=== PATIENT | male | born 1990 | race Two or more races ===

== ENCOUNTER 2024-11-27 15:59 | Emergency (ER) | payer MEDICAID, SELFPAY ==
[2024-11-27 16:09] VITALS: PULSE 91; RESP 20; O2SAT 100; BMI 22.8
[2024-11-27 16:10] VITALS: BP 154/110; PULSE 96; RESP 16; TEMP 37.7; O2SAT 95
[2024-11-27] MEDS: LORazepam 2 MG/ML VIAL IVP ×2 (16:39→19:43)
--- NOTE | 2024-11-27 16:51 | XR_ITS ---
Examination: CT brain head without contrast. 2-D sagittal coronal reconstructions Date and time of exam:November 27, 2024 at 1715 hours INDICATIONS: Seizure today with injury to the head, head pain CTDI: vol (mGy):52.1 DLP: (mGycm):1044 Technique: Multiple CT axial sections of the brain have been obtained, 5 mm slice thickness. Contrast has not been administered. 2-D sagittal, coronal reconstructions have been obtained Low dose protocols were performed. One or more of the following dose reduction techniques were used; automated exposure control, adjustment of the mA and/or KV according to patient size, use of iterative reconstruction technique. Findings: No significant ventricular enlargement. Intra-axial or extra-axial hemorrhage density is not seen. No mass effect or midline shift Basal cisterns are not remarkable. Fourth ventricle is midline. Cranial vault intact. Impression: Negative for acute hemorrhage, mass effect or midline shift Consider elective brain MRI follow-up, pre and postcontrast
--- NOTE | 2024-11-27 16:51 | XR_ITS ---
Examination: CT maxillofacial, without intravenous contrast. 2-D sagittal reconstructions. 3-D reconstructions. Date and time of exam:November 27, 2024 1715 hours INDICATIONS: Seizure today with injury to the face, facial swelling and pain CTDI: vol (mGy):17.3 DLP: (mGycm):354 Technique: Multiple axial images of maxillofacial region, 3.0 mm slice thickness. 2-D sagittal and coronal reconstructions. 3-D reconstructions. Low dose protocols were performed. One or more of the following dose reduction techniques were used; automated exposure control, adjustment of the mA and/or KV according to patient size, use of iterative reconstruction technique. Findings: Frontal bone frontal sinuses intact Orbital rims intact The optic globes exhibit symmetry No retro-orbital hematoma No nasal bone fracture No depression zygomatic arches Maxilla and the mandible intact Soft tissue contusion right face external to the right zygomatic arch and right maxilla IMPRESSION: No acute facial fracture.
--- NOTE | 2024-11-27 16:51 | XR_ITS ---
Examination: CT cervical spine without contrast 2-D sagittal reconstructions 2-D coronal reconstructions 3-D reconstructions. Exam date and time:November 27, 2024 1715 hours Comparison November 29, 2023 CTDI:vol (mGy) 12.6 DLP: (mGycm) 276 Technique: Multiple 2 mm axial sections of the cervical spine have been obtained. The coronal and sagittal reconstructions have been obtained. 3-D reconstructions have been obtained. Low dose protocols were performed. One or more of the following dose reduction techniques were used; automated exposure control, adjustment of the mA and/or KV according to patient size, use of iterative reconstruction technique. Findings: Axial sections demonstrate intact base of the skull. C1 exhibit satisfactory relationship to the odontoid. No acute cervical vertebral body fracture seen. Alignment posterior spinous processes satisfactory. Impression: No acute cervical fracture.
[2024-11-27] MEDS: SODIUM CHLORIDE 0.9% 1000 ML 1,000 ML 999 ML IV (16:55)
[2024-11-27] MEDS: THIAMINE INJ 100 MG/ML VIAL 2 ML IVP (16:55)
[2024-11-27 17:07] LABS: Basophils % (Auto) 0 % (0-2.5); Eosinophils % (Auto) 0 % (0-10); Hematocrit 35.3 % (41.0-53.0); Hemoglobin 11.8 g/dL (13.5-16.0); Immature Granulocytes % (Auto) 0 % (0-0); Immature Granulocytes Auto 0.01 Thou/mm3 (0.00-0.00); Lymphocytes # (Auto) 0.3 Thou/mm3 (1.0-4.8); Lymphocytes % (Auto) 13 % (10-50); Mean Corpuscular HGB Conc 33.4 g/dl (31.0-37.0); Mean Corpuscular Hemoglobin 30.3 pg (25.0-35.0); Mean Corpuscular Volume 91 fL (80-100); Monocytes # (Auto) 0.3 Thou/mm3 (0.0-0.8); Monocytes % (Auto) 11 % (0-12); Neutrophils # (Auto) 1.9 Thou/mm3 (1.8-7.7); Neutrophils % (Auto) 75 % (37-80); Nucleated Red Blood Cell % 0 /100 WBC (0); RDW Standard Deviation 44.8 fL (35.1-43.9); Red Blood Count 3.89 Miln/mm3 (4.50-5.90)
--- NOTE | 2024-11-27 17:10 | PD.EDALCOH ---
ED Alcohol RME/HPI General Chief Complaint: Alcohol Stated Complaint: SEIZURES Time Seen by Provider: 11/27/24 16:34 Arrival date/time: 11/27/24 15:59 34 year male present with past medical history of alcohol withdrawal seizure, to emergency room with c/o of seizure withdrawal today at 3pm causing patient to passed out and injury head/face. Pt last alcohol beverage was 1 day ago. No vomiting blood. Dry heaving, no bright red blood per rectum. No bruising today on his extremities. The patient drinks 1 large malt daily.(30z) complaint: seizure Onset (ago): 1500pm Description of Episode: tonic-clonic movement Duration of episode: 1 minute , 5-7 episode Witnessed: yes - by bystander Trauma: yes Seizure History: history of withdrawal seizures Place: home Possible Precipitating Event: other stopped drinking 1 day ago Associated symptoms: nausea LOCATION: face/forehead SEVERITY: Symptoms are described as being severe with limitations on activities of daily living QUALITY: Symptoms are described as being dull or achy CONTEXT:seizure causing head/face injury DURATION/TIMING: The symptoms started approximately 1500 today witness ASSOCIATED SYMPTOMS: The patient is unable to identify any other associated symptoms. MODIFYING FACTORS: The patient is unable to identify any alleviating or aggravating symptoms. PERTINENT ROS: No associated syncope or presyncope, not on anticoagulant use, no associated focal neurological deficits, denies associated neck pain, no recent fevers, no unexplained rashes, no recent foreign travel, immunized, no unexplained nausea or vomiting. REVIEW OF SYSTEMS: See History of Present Illness - with the exception of those mentioned in the history of present illness, all other systems reviewed and reported as negative GENERAL: In general the patient is awake, interactive, in an emergency department gurney. HEAD/EYES/EARS/NOSE/THROAT: right cheek hematoma, no tongue laceration mucus membranes are moist, anicteric, palpebral conjunctiva is pink, trachea is midline. CARDIOVASCULAR: regular rate and regular rhythm, no murmurs, heart sounds are not distant, strong pulses in all four extremities that are equal and symmetric bilateral upper and lower extremities, normal capillary refill. CHEST/PULMONARY: normal chest rise and fall, good air movement, clear to auscultation bilaterally, normal inspiratory to expiratory ratios without evidence of respiratory distress. NECK: No midline/Paraspinal tenderness, no step off ROM/Strenght intact No Kernig and bruzinski sign. No trauma ABDOMEN: soft, not tender, no masses appreciated BACK: normal range of motion without pain. NEUROLOGICAL: cranio-facial features are symmetric, moves all four extremities equally without obvious limitations or weakness. EXTREMITY: no tenderness to palpation over the long bones or large joints of the bilateral upper and lower extremities, no joint swelling, no joint erythema, no signs of trauma, no unilateral leg swelling and no peripheral edema. SKIN: warm, dry, well-perfused, no jaundice, no rash, no telangiectasias or petechia. PSYCH: calm, cooperative, no evidence of psychosis or agitation Related Data Home Medications ?Medication ?Instructions ?Recorded ?Confirmed cetirizine 10 mg tablet 10 mg PO QDAY 01/31/24 01/31/24 propranolol 20 mg tablet 10 mg PO BID 01/31/24 01/31/24 risperidone 2 mg tablet 2 mg PO QPM 01/31/24 01/31/24 trazodone 100 mg tablet 100 mg PO QDAY 01/31/24 01/31/24 Previous Rx's ?Medication ?Instructions ?Recorded cephalexin 500 mg capsule 500 mg PO BID #20 caps 11/27/24 Allergies Allergy/AdvReac Type Severity Reaction Status Date / Time No Known Allergies Allergy Verified 07/02/23 16:20 Course Course Course Narrative: Patient had back to normal per mother? No immunosuppresion hx and had no preceding fever. No history of alcohol abuse or suspicion for toxin ingestion. Unlikely stroke, syncope. Unlikely infectious etiology. No preceding trauma. Workup: EKG, CBC, Trop, lipase,? CMP, POCT glucose alcohol, drug and CT Brain/neck/face. ED Interventions: ativan 2gram, IV fluids, Thiamine,? pt is comfortable going home, since has a rx of librium from his PCP. pt is looking into rehab center. pt decline admission Disposition: Discharge home with primary care follow up in next 24-48 hours. Quality Measures none Orders Category Date Time Status EKG (ED ONLY) *Do not use* NOW Care 11/27/24 17:40 Completed Seizure precautions ONCE Care 11/27/24 17:[address] cervical spine wo con Stat Exams 11/27/24 16:[address] facial bones wo con Stat Exams 11/27/24 16:[address] head/brain wo con Stat Exams 11/27/24 16:51 Completed EKG (ED Only) Stat Exams 11/27/24 17:40 Draft Alcohol, Blood Medical Stat Lab 11/27/24 16:49 Completed Alcohol, Urine Stat Lab 11/27/24 17:31 Completed CBC Stat Lab 11/27/24 16:49 Completed CMP [Comprehensive Metabolic Panel] Stat Lab 11/27/24 16:49 Completed Drug Screen,Urine Stat Lab 11/27/24 17:31 Completed Lipase Stat Lab 11/27/24 16:49 Completed Mag [Magnesium] Stat Lab 11/27/24 16:49 Completed Troponin I Stat Lab 11/27/24 16:49 Completed Folic Acid Inj Med 11/27/24 16:34 Discontinued 1 mg IVP X1 ONE LORazepam [Ativan Inj] Med 11/27/24 16:34 Discontinued 2 mg IVP X1 ONE LORazepam [Ativan Inj] Med 11/27/24 19:24 Discontinued 2 mg IVP X1 ONE Magnesium Oxide [Mag-Ox 400] Med 11/27/24 17:53 Discontinued 400 mg PO X1 ONE Sodium Chloride 0.9% 1000 ml [Ns] 1,000 ml Med 11/27/24 16:35 Discontinued IV 999 mls/hr Thiamine Inj [Vitamin B-1 Inj] Med 11/27/24 16:34 Discontinued 100 mg IVP X1 ONE cephALEXin [Keflex] Med 11/27/24 19:35 Discontinued 500 mg PO X1 ONE Vital Signs Vital signs: Vital Signs Temperature 99.8 F 11/27/24 16:10 Pulse Rate 96 11/27/24 16:10 Respiratory Rate 16 11/27/24 16:10 Blood Pressure 154/110 H 11/27/24 16:10 Pulse Oximetry (%) 95 11/27/24 16:10 Oxygen Delivery Method Room Air 11/27/24 16:10 Procedures -ED EKG Interpretation #1: Date of EK11/27/24 Rate: 81 Interpretation: Reviewed by me EKG Impression: Normal sinus rhythm, No acute ST-T changes, No ectopy, No ischemic changes and Normal QRS Discharge Plan Plan Patient Disposition: HOME (Self Care) Health Concerns: Follow up with PCP as directed Return to ED if symptoms worsen Prescriptions/Referrals Prescriptions/Med Rec: New cephalexin 500 mg capsule 500 mg PO BID Qty: 20 0RF No Action cetirizine 10 mg Tablet 10 mg PO QDAY risperidone 2 mg tablet 2 mg PO QPM Patient Comments: TAKE 1 TABLET BY MOUTH EVERYDAY AT BEDTIME trazodone 100 mg Tablet 100 mg PO QDAY propranolol 20 mg tablet 10 mg PO BID Patient Comments: TAKE 1 TABLET BY MOUTH EVERYDAY AT BEDTIME Problem List Clinical Impression: Alcohol withdrawal seizure, Hypomagnesemia, Facial trauma Patient/Caregiver Discharge Instructions Education Materials: ED Alcohol Withdrawal Seizure, ED Facial Contusion Print Language: Belgian Stand Alone Forms: [facility] Award Info., Patient Portal Info Letter Alcohol Patient data External records reviewed:: [facility] previous records Clinical information provided by:: patient Social determinants that could affect healthcare access:: alcohol use Patient has the following chronic illnesses:: alcohol withdrawal How is presenting disease/condition affected by chronic disease/condition?: exacerbated by Evaluation data The following diagnostics were reviewed and interpreted by me:: lab results, radiology exam(s) and EKG tracing(s) Lab and/or radiology exams considered but not ordered:: none Interpretation Summary: alcohol cbc: 2.6 2.1 previously cmp similar or improvement mg wnl trop wnl drug negative alcohol negative Medications / Prescriptions Medications or Prescriptions considered but not ordered:: none Medication administrations:: Medication Administration History Discontinued Medications Cephalexin HCl (Cephalexin 250 Mg Capsule) 500 mg PO X1 ONE Stop: 11/27/24 19:36 Last Admin: 11/27/24 19:43 Dose: 500 mg Documented By: WILLY Folic Acid (Folic Acid Inj 1 Mg/0.2 Ml) 1 mg IVP X1 ONE Stop: 11/27/24 16:35 Last Admin: 11/27/24 17:26 Dose: 1 mg Documented By: TRENTON Sodium Chloride (Ns) 1,000 mls @ 999 mls/hr IV .Q1H1M ONE Stop: 11/27/24 17:35 Last Infusion: 11/27/24 18:09 Dose: Infused Documented By: Admin: 11/27/24 16:55 Dose: 999 mls/hr Documented By: TRENTON Lorazepam (Lorazepam 2 Mg/Ml Vial) 2 mg IVP X1 ONE Stop: 11/27/24 16:35 Last Admin: 11/27/24 16:39 Dose: 2 mg Documented By: TRENTON Lorazepam (Lorazepam 2 Mg/Ml Vial) 2 mg IVP X1 ONE Stop: 11/27/24 19:25 Last Admin: 11/27/24 19:43 Dose: 2 mg Documented By: WILLY Magnesium Oxide (Magnesium Oxide 400 Mg Tablet) 400 mg PO X1 ONE Stop: 11/27/24 17:54 Last Admin: 11/27/24 18:09 Dose: 400 mg Documented By: DB Thiamine HCl (Thiamine Inj 100 Mg/Ml Vial 2 Ml) 100 mg IVP X1 ONE Stop: 11/27/24 16:35 Last Admin: 11/27/24 16:55 Dose: 100 mg Documented By: DB as state above Consultations Consultation(s) initiated? (list below): No Diagnosis Most likely diagnosis given after review of the tests above:: alcohol withdrawal seizure, facial contusion/head injury Admission Indicated Admission indicated?: not indicated Admission Request Was there a request for admission?: No Disposition Plan Disposition Plan: Discharge Discharge Attestation Discharge Attestation: The patient and all family members were given an opportunity to ask questions and understood the discharge instructions. Discharge instructions specifically effects, indications for sooner follow up or return to the emergency department, and the expected course of current diagnosis. Patient condition: Stable
[2024-11-27 17:21] LABS: Platelet Count 36 Thou/mm3 (140-440); White Blood Count 2.6 Thou/mm3 (3.8-10.6)
[2024-11-27] MEDS: FOLIC ACID INJ 1 MG/0.2 ML IVP (17:26)
--- NOTE | 2024-11-27 17:40 | EKG_ITS ---
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
[2024-11-27 17:45] LABS: Slide Review Platelets confirmed
[2024-11-27 17:46] LABS: Alanine Aminotransferase 43 U/L (10-49); Albumin, Serum 4.1 gm/dL (3.5-5.0); Albumin/Globulin Ratio 1.1 (1.2-2.2); Alcohol, Blood Medical < 3.0 mg/dL (0-10.0); Alkaline Phosphatase 91 U/L (46-116); Anion Gap 10 (7-16); Aspartate Amino Transferase 110 U/L (0-34); BUN/Creatinine Ratio 13 Ratio (12-20); Bilirubin,Total 1.1 mg/dL (0.3-1.2); Blood Urea Nitrogen 8 mg/dL (9-23); Calcium 8.9 mg/dL (8.3-10.6); Calcium (Corrected) 8.9 mg/dL (8.5-10.1); Carbon Dioxide 26.4 mMol/L (20.0-31.0); Chloride 100 mMol/L (98-107); Creatinine (Component) 0.6 mg/dL (0.6-1.3); Estimated Creatinine Clearance 180.8 mL/min (>60); Globulin 3.6 gm/dL (2.3-3.5); Glucose 134 mg/dL (74-106); Lipase 69 U/L (12-53); Magnesium 1.4 mg/dL (1.6-2.6); Osmolality,Calculated 272 (275-295); Potassium 3.7 mMol/L (3.4-5.1); Sodium 136 mMol/L (136-145); Total Protein 7.7 gm/dL (5.7-8.2); eGFR > 60 See Note
[2024-11-27 17:51] LABS: Amphetamine/Methamp Scrn,U Negative (Negative); Barbiturate Screen,Urine Negative (Negative); Benzodiazepines Screen,Urine Negative (Negative); Benzoylecgonine Screen, Ur Negative (Negative); Fentanyl Screen,Urine Negative (Negative); Opiate Screen,Urine Negative (Negative); THC Screen,Urine Negative (Negative)
[2024-11-27] MEDS: MAGNESIUM OXIDE 400 MG TABLET PO (18:09)
[2024-11-27 18:16] VITALS: BP 140/92; PULSE 86; RESP 18; TEMP 37.2; O2SAT 95
[2024-11-27 18:17] LABS: Troponin I < 0.020 ng/mL (0.0-0.045)
[2024-11-27 19:00] LABS: Alcohol, Urine Negative (Negative)
[2024-11-27] MEDS: cephALEXin 250 MG CAPSULE 500 MG PO (19:43)
[2024-11-27 19:48] VITALS: BP 137/93; PULSE 85; RESP 17; O2SAT 96
== END 2024-11-27 20:14 | disposition home or self-care (01) ==
PROVIDERS: Physician Assistant; Emergency Provider Emergency Medicine; PCP Physician Assistant Medical
DX: F10.939 Alcohol use, unspecified with withdrawal, unspecified (principal); R56.9 Unspecified convulsions; Y90.0 Blood alcohol level of less than 20 mg/100 ml; E83.42 Hypomagnesemia; S00.83XA Contusion of other part of head, initial encounter; W19.XXXA Unspecified fall, initial encounter; Y93.89 Activity, other specified
CPT/HCPCS: 36415; 70450; 70486; 72125; 80053; 80307; 80320; 83690; 83735; 84484; 85025; 93005; 96361; 96374; 96375; 99284; J2060; J3411; J3490; J7030; A9270; G0480

== ENCOUNTER 2025-01-17 21:48 | Inpatient (IN) | payer MEDICAID, SELFPAY ==
[2025-01-17 21:51] VITALS: PULSE 96; RESP 18; O2SAT 97
[2025-01-17 21:53] VITALS: BP 148/87; PULSE 97; RESP 18; TEMP 36.9; O2SAT 93
--- NOTE | 2025-01-17 22:24 | EKG_ITS ---
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
[2025-01-17] MEDS: PHENobarbital Inj 130 MG, SODIUM CHLORIDE 0.9% FLUSH 12 ML IVP ×2 (22:26→22:52)
--- NOTE | 2025-01-17 22:26 | PD.EDSEIZ ---
ED Seizures RME/HPI General Chief Complaint: Seizure Stated Complaint: SEIZURE Time Seen by Provider: 01/17/25 21:56 Arrival date/time: 01/17/25 21:48 RME / HPI RME / HPI Narrative: Dr. Del Castillo?s Main ED Evaluation: 34yo male with a history of alcohol abuse BIBA from home presents to the ED for a chief complaint of seizures. Mom states the patient had a total of 5 seizures tonight, reporting the patient had 4 of them while she was on the phone with 911. She states the patient had one emetic episode 2 hours prior to his first seizure. Patient endorses being shaky. Mom states the patient is a heavy drinker, reporting he hasn't had any alcohol since last night. Patient states he's been drinking heavily since he was 17. Patient denies any history of cirrhosis. He denies any nausea, headache, bloody/black stools or any other associated symptoms. Denies any falls or loss of consciousness. No head strikes. Mom notes the patient bruises easily. He has had alcohol withdrawal seizures in the past. No known allergies. Related Data Home Medications ?Medication ?Instructions ?Recorded ?Confirmed cetirizine 10 mg tablet 10 mg PO QDAY 01/31/24 01/31/24 propranolol 20 mg tablet 10 mg PO BID 01/31/24 01/31/24 risperidone 2 mg tablet 2 mg PO QPM 01/31/24 01/31/24 trazodone 100 mg tablet 100 mg PO QDAY 01/31/24 01/31/24 Previous Rx's ?Medication ?Instructions ?Recorded cephalexin 500 mg capsule 500 mg PO BID #20 caps 11/27/24 Allergies Allergy/AdvReac Type Severity Reaction Status Date / Time No Known Allergies Allergy Verified 07/02/23 16:20 Review of Systems Review of Systems Systems Reviewed: All systems reviewed, normal except as documented Past Medical History Past Medical History NEUROLOGIC: Positive Seizures; Negative Neurological Disorders, Cerebrovascular Accident, Transient Ischemic Attacks (TIA), Dementia, Alzheimer's Disease, Parkinson's Disease, Brain Tumor, Meningitis, Epilepsy, Multiple Sclerosis, Cerebral Palsy, Amyotrophic Lateral Sclerosis (ALS/Lizbeth Gehrig's), Guillain-[place] Syndrome, Spina Bifida, Paralysis, Peripheral Neuropathy, Jara's Palsy, Subdural Hematoma, Migraine, Head Trauma, Spinal Cord Injury or Traumatic Brain Injury CARDIAC: Positive Cardiac Disorders and Hypertension; Negative Myocardial Infarction, Cardiac Arrhythmia, Atrial Fibrillation, Angina, Heart Murmur, Coronary Artery Disease, Atherosclerotic Heart Disease, Peripheral Vascular Disease, Hypercholesterolemia, Aneurysm, Congestive Heart Failure, Congenital Heart Disease, Valvular Heart Disease, Rheumatic Fever, Cardiomyopathy, Edema, Pericarditis, Cellulitis, Deep Vein Thrombosis, Hypotension or Varicose Veins RESPIRATORY: Negative Chronic Obstructive Pulmonary Disease (COPD), Asthma, Bronchitis, Emphysema, Pneumonia, Pulmonary Fibrosis, Cystic Fibrosis, Tuberculosis, Pulmonary Embolism, Pulmonary Edema or Sleep Apnea GASTROINTESTINAL: Positive Cirrhosis (ALCOHOL DEPENDENT); Negative Gastrointestinal Disorders, Hepatitis, Pancreatitis, Celiac Disease, Gall Bladder Disease, Gastrointestinal Bleed, Esophageal Varices, Soto's Esophagus, Colitis, Ulcerative Colitis, Diverticulitis, Diverticulosis, Ulcer, Colorectal Cancer, Irritable Bowel, Crohn's Disease, Obstructive Bowel, Hiatal Hernia, Hemorrhoids, Gastroesophageal Reflux Disease or Obesity GENITOURINARY: Negative Genitourinary Disorders, Renal Disease, Kidney Stones, Polycystic Kidney Disease, Neurogenic Bladder, Inguinal Hernia, Dialysis, Prostate Cancer or Benign Prostatic Hyperplasia REPRODUCTIVE: Negative Testicular Cancer MUSCULOSKELETAL: Negative Musculoskeletal Disorders, Myasthenia Gravis, Marfan's Syndrome, Bone Cancer, Arthritis, Rheumatoid Arthritis, Osteoporosis, Degenerative Disk Disease, Gout, Scoliosis, Carpal Tunnel Syndrome, Fibromyalgia, Fractures, Degenerative Joint Disease, Osteomyelitis or Poliovirus ENT: Negative Cataracts, Glaucoma, Blind, Retinal Detachment, Macular Degeneration, Ear Infection, Deafness, Head Trauma or Eye Prosthesis ENDOCRINE: Negative Endocrine Disorders, Diabetes Mellitus Type 1, Diabetes Mellitus Type 2, Hypoglycemia, Paradox's Syndrome, [place]'s Disease, Hyperthyroidism, Hypothyroidism, Parathyroid Disease, Pituitary Disease, Systemic Lupus Erythematosus, Syndrome of Inappropriate Antidiuretic Hormone (SIADH), Adrenal Disease or Graves' Disease HEMATOLOGIC: Negative Blood Disorders, Anemia, Leukemia, Hemophilia, Thalassemia, Sickle Cell Disease or Clotting Problems PSYCHO/SOCIAL: Positive Psychiatric Problems; Negative Schizophrenia, Recreational Drug Use, Bipolar Disorder, Depression, Anxiety, Behavior Problems, Self-Mutilation, Attention Deficit Disorder, Attention Deficit Hyperactivity Disorder, Post Traumatic Stress Disorder or Eating Disorder OTHER HISTORY: Negative Hospitalization, Autoimmune Disease, Down Syndrome, Autism, Developmental Delay, Shingles, Falls, Blood Transfusions, Blood Transfusion Reaction, Anesthesia Reactions, Organ Transplant, Chemotherapy, Radiation Therapy, Hyperbaric Therapy, MRSA, VRSA, Vancomycin-Resistant Enterococci, Human Immunodeficiency Virus (HIV), Chicken Pox, Measles, Mumps, Rubella (Stateless Measles), Pertussis, Clostridium Difficile, Cancer, Colorectal Cancer, Lung Cancer, Prostate Cancer or Testicular Cancer Family History FAMILY HISTORY: Negative Family Psychiatric Problems, Family Respiratory Disorders, Family Cardiac Disorders, Family Gastrointestinal Problems, Family Cancer, Family Surgery or Family Anesthesia Reaction Surgical History SURGICAL: Negative Cardiac Surgery, Open Heart Surgery, Coronary Artery Bypass Graft, Valve Replacement, Vascular Surgery, Coronary Stent, Cardiac Catheterization, Pacemaker, Angiogram, Auto Implanted Cardiovert Defib, Carotid Endarterectomy, Endocrine Surgery, Thyroidectomy, Ear Surgery, Tympanostomy Tube, Eye Surgery, Nose Surgery, Oral Surgery, Tonsillectomy, Adenoidectomy, Cochlear Implant, Corneal Transplant, Throat Surgery, Abdominal Surgery, Tracheostomy, Gastric Bypass Surgery, Gastrostomy, Bowel Surgery, Nephrectomy, Transurethral Resection, Joint Replacement, Amputation, Open Reduction Internal Fixation, Arthroscopy, Neurologic Surgery, Brain Shunt, Vasectomy or Organ Transplant Social History SMOKING STATUS: Never smoker SECOND HAND EXPOSURE: No ED Exam Narrative Physical exam: GENERAL APPEARANCE: alert and oriented x 4, has [id number] tremors at rest VITALS: All vitals were reviewed and the pulse ox is 95% on room air, which is normal according to my interpretation. HEENT: Normocephalic, atraumatic; pupils equal, round, reactive to light; EOMI; bilateral nystagmus; mucous membranes pink, moist; oropharynx clear NECK: Supple LUNGS: CTABL; no wheezes, no rales, no rhonchi HEART: Regular rate, regular rhythm; normal S1, S2; no murmurs ABDOMEN: moderately distended; normal BS; soft, no tenderness, no guarding, no rebound; no masses, no organomegaly, no hernia; no debi's sign BACK: no CVA tenderness; no del castillo wang sign EXTREMITIES: atraumatic; no edema NEUROLOGIC: awake; alert and oriented x4; cranial nerves II-XII grossly intact; no focal sensory or motor deficits PSYCHIATRIC: appropriate mood and affect SKIN: warm, dry, large ecchymossis to the left chest, ecchymosis to the left upper back, several ecchymotic lesions to the LUE, small ecchymotic lesions to the RUE; no rashes Course Course Course Narrative: CXR is ordered to r/o aspiration pneumonia. Quality Measures none Orders Category Date Time Status Bedside Blood Glucose STAT Care 01/17/25 22:26 Active Manager Of Community Relations STAT Care 01/17/25 22:26 Active EKG (ED ONLY) *Do not use* NOW Care 01/17/25 22:26 Completed Endoscopy Consents .On arrival Care 01/17/25 22:55 Active Intake and Output Routine Care 01/17/25 22:26 Ordered Miscellaneous Nursing Order NOW Care 01/17/25 22:55 Active NPO NOW Care 01/17/25 22:26 Active Consult to Gastroenterology Stat Cons 01/17/25 22:38 Ordered EKG (ED Only) Stat Exams 01/17/25 22:24 Draft XR chest 1V portable Stat Exams 01/17/25 22:28 Completed ABG [Arterial Blood Gas] Stat Lab 01/17/25 22:25 Ordered Blood Culture (Lab) Stat Lab 01/17/25 22:49 Received CBC Stat Lab 01/17/25 22:49 Completed CK [Creatine Kinase] Stat Lab 01/17/25 22:53 Completed Comprehensive Metabolic Panel Stat Lab 01/17/25 22:53 Completed INR [Prothrombin Time with INR] Stat Lab 01/17/25 22:49 Completed Ketone [Beta Hydroxybutyrate] Stat Lab 01/17/25 22:53 Completed Lactate (Lactic Acid) Stat Lab 01/17/25 22:49 Results Magnesium Stat Lab 01/17/25 22:53 Completed PTT [Partial Thromboplastin Time] Stat Lab 01/17/25 22:49 Completed Path Review Blood Smear Stat Lab 01/17/25 22:49 Completed Phosphorous Stat Lab 01/17/25 22:53 Completed Type and Screen Stat Lab 01/17/25 22:53 Completed Urinalysis Stat Lab 01/17/25 22:26 Ordered Urine Culture Stat Lab 01/17/25 22:26 Ordered Magnesium Sulfate 4 GM Ivpb [Magnesium Sulfate Ivpb] Med 01/17/25 23:49 Active 4 gm in 50 ml IV X1 Octreotide Acet Inj [SandoSTATIN Inj] Med 01/17/25 22:34 Discontinued 50 mcg IV X1 ONE Ondansetron Inj [Zofran Inj] Med 01/17/25 22:30 Discontinued 4 mg IV X1 ONE PHENobarbital Inj 130 mg Med 01/17/25 22:18 Discontinued Sodium Chloride 0.9% Flush [NS Flush] 12 ml IVP X1 PHENobarbital Inj 130 mg Med 01/17/25 22:34 Discontinued Sodium Chloride 0.9% Flush [NS Flush] 12 ml IVP X1 POTASSIUM CHL 10 mEq IVPB [Kcl Ivpb] Med 01/17/25 23:49 Active 10 meq in 100 ml IV Q1H Pantoprazole Inj [Protonix Inj] Med 01/17/25 22:34 Discontinued 80 mg IVP X1 ONE Pantoprazole/Ns 80Mg IV Premix [Protonix/NS 80mg IV Med 01/17/25 22:36 Active Premix] 80 mg in 100 ml IV X1 Ringers Lactated 1000 ml [Lactated Ringers] 1,000 ml Med 01/17/25 22:30 Active IV Q1H Sodium Chloride 0.9% [Ns] 100 ml Med 01/17/25 22:45 Active Octreotide Acet Inj [SandoSTATIN Inj] 1,000 mcg IV 50 mcg/hr Sodium Chloride 0.9% [Ns] 100 ml Med 01/18/25 18:45 Pending Octreotide Acet Inj [SandoSTATIN Inj] 1,000 mcg IV 50 mcg/hr Vital Signs Vital signs: Vital Signs Temperature 98.4 F 01/17/25 21:53 Pulse Rate 97 01/17/25 21:53 Respiratory Rate 18 01/17/25 21:53 Blood Pressure 148/87 H 01/17/25 21:53 Pulse Oximetry (%) 93 L 01/17/25 21:53 Oxygen Delivery Method Room Air 01/17/25 21:53 Seizure MDM Narrative MDM Narrative:: Scribe Attestation: 01/17/25 Maricarmen Rust am scribing for and in the presence of Dr. Del Castillo. Patient is currently receiving phenobarbital. 2229: Patient started vomiting coffee-ground emesis and his heart rate went up to 130. He is extremely tremulous. Gastric occult was performed and was positive with a pH of 5-7. Patient is too tremulous for an EKG and is too unsteady to have orthostatics completed at this time. He is receiving LR. Octreotide and Protonix ordered. Patient to receive his second dose of phenobarbital. Patient's tremulousness resolved after he received his second dose of phenobarbital. Patient's potassium is borderline low and his magnesium is low. Magnesium Sulfate 4g and KCl 10mEq ordered. I counseled the patient extensively regarding the need for him to stop drinking in order to prevent worsening to his liver and other systems in his body while his mother was at the bedside. Patient data External records reviewed:: [facility] previous records (Per chart review, patient was seen here on 11/27/24 for alcohol withdrawal seizure.) Clinical information provided by:: patient and family Social determinants that could affect healthcare access:: alcohol use Patient has the following chronic illnesses:: none How is presenting disease/condition affected by chronic disease/condition?: no chronic disease Evaluation data The following diagnostics were reviewed and interpreted by me:: lab results and EKG tracing(s) Lab and/or radiology exams considered but not ordered:: none Interpretation Summary: WBC count is low at 2.9, HnH is 12.7/37.1, Platelets are low at 27, Potassium is 3.7, Lactic Acid is elevated at 3.5, Magnesium is low at 1.2, AST and ALT are elevated, according to my interpretation. EKG #1 done at 2236, NSR, rate of 88, normal axis, no ectopy, no acute ischemia, according to my interpretation. EKG #2 done at 2258, NSR, rate of 91, normal axis, no ectopy, no acute ischemia, according to my interpretation. [facility] Report Signed Patient: RONAN NEGRETE Record#: [id number] Birthdate: 1990 Age/Sex: 34 / M Location: [facility] Attending Dr: Ordering Physician: Luigi eDl Castillo MD Date of Service: 01/17/25 Procedure(s): XR chest 1V portable Accession Number(s): [id number] cc: John Chand MD; NO PRIMARY/FAMILY,PHYSICIAN; Luigi Del Castillo MD~ Examination: AP chest single view TECHNIQUE: AP portable upright chest single view Exam date and time: January 17, 2025, 10:34 PM Comparison January 31, 2024 INDICATIONS: Coughing today FINDINGS: The film is rotated RPO. Normal heart size Lungs are clear. Old fracture right sixth rib in the midaxillary line IMPRESSION: No active disease Dictated By: John Chand MD Signed By: <Electronically signed by John Chand MD in [place]> 01/17/25 0138 Medications / Prescriptions Medications or Prescriptions considered but not ordered:: none Medication administrations:: Medication Administration History Lactated Ringer's (Lactated Ringers) 1,000 mls @ 1,000 mls/hr IV Q1H NA Stop: 01/18/25 00:29 Last Admin: 01/17/25 23:14 Dose: 1,000 mls/hr Documented By: Infusion: 01/17/25 23:14 Dose: Infused Documented By: Admin: 01/17/25 22:37 Dose: 1,000 mls/hr Documented By: ZOE Octreotide Acetate 1,000 mcg/ (Sodium Chloride) 102 mls @ 5.1 mls/hr IV .Q20H NA; Protocol Stop: 01/22/25 22:35 Pantoprazole Sodium (Protonix/Ns 80mg Iv Premix) 80 mg in 100 mls @ 10 mls/hr IV X1 ONE Stop: 01/18/25 08:35 Last Admin: 01/17/25 23:41 Dose: 10 mls/hr Documented By: JOHNNIE Octreotide Acetate 1,000 mcg/ (Sodium Chloride) 102 mls @ 5.1 mls/hr IV .Q20H NA; Protocol Stop: 01/18/25 18:44 Last Admin: 01/17/25 23:43 Dose: 50 mcg/hr, 5.1 mls/hr Documented By: JOHNNIE Magnesium Sulfate (Magnesium Sulfate Ivpb) 4 gm in 50 mls @ 12.5 mls/hr IV X1 ONE Stop: 01/18/25 03:48 Potassium Chloride (Kcl Ivpb) 10 meq in 100 mls @ 100 mls/hr IV Q1H NA Stop: 01/18/25 01:48 Discontinued Medications Phenobarbital Sodium 130 mg/ (Sodium Chloride 12 ml) 0 mg IVP X1 ONE Stop: 01/17/25 22:19 Last Admin: 01/17/25 22:26 Dose: 130 mg Documented By: GALE Comments: Verified with Chari FAGAN Phenobarbital Sodium 130 mg/ (Sodium Chloride 12 ml) 0 mg IVP X1 ONE Stop: 01/17/25 22:35 Last Admin: 01/17/25 22:52 Dose: 130 mg Documented By: GALE Comments: Verified with Pao FAGAN Octreotide Acetate (Octreotide Acet Inj 50 Mcg/Ml Vial) 50 mcg IV X1 ONE Stop: 01/17/25 22:35 Last Admin: 01/17/25 23:44 Dose: 50 mcg Documented By: JOHNNIE Comments: bolus from octreotide gtt (5.1ml) Ondansetron HCl (Ondansetron Inj 2 Mg/Ml Inj 2 Ml) 4 mg IV X1 ONE; Protocol Stop: 01/17/25 22:31 Last Admin: 01/17/25 22:37 Dose: 4 mg Documented By: ZOE Pantoprazole Sodium (Pantoprazole Inj 40 Mg Vial) 80 mg IVP X1 ONE Stop: 01/17/25 22:35 Last Admin: 01/17/25 22:54 Dose: 80 mg Documented By: GALE see above Consultations Consultation(s) initiated? (list below): Yes Consultation #1 (Physician, Specialty, Details): Discussed case with [Dr. Miguel] from [GI] regarding [consultation]. Discussed patients ED course, exam findings, labs, and radiology results. Agrees to consult. Time: 22:37 Consultation #2 (Physician, Specialty, Details): Discussed case with [Dr. Bear, attending Dr. Doss] from Hospitalist service regarding admission. Discussed patients ED course, exam findings, labs, and radiology results. The Hospitalist states she will call the ice cream freezer and figure out where the patient needs to be admitted. Time: 23:52 Diagnosis Seizure Differential Diagnosis: other (alcohol withdrawal seizure, delirium tremens, alcohol withdrawal, alcohol ketoacidosis, electrolyte abnormality) Most likely diagnosis given after review of the tests above:: see clinical impression below Admission Indicated Admission indicated?: indicated Admission Request Was there a request for admission?: Yes Admission Attestation Admission request attestation: Discussed case with [] from Hospitalist service regarding admission. Discussed patients ED course, exam findings, labs, and radiology results. The Hospitalist [agrees,declines] to accept the patient for admission. Disposition Plan Disposition Plan: Admit Critical Care Time Critical Care Time Critical Care Time: Yes Total Critical Care Time (min.): 90 Attestation: The high probability of sudden, clinically significant deterioration in the patient?s condition required the highest level of my preparedness to intervene urgently. The services I provided to this patient were to treat and/or prevent clinically significant deterioration. Services included the following: chart data review, reviewing nursing notes and/or old charts, documentation time, middleware consultant collaboration regarding findings and treatment options, medication orders and management, direct patient care, vital sign assessments and ordering, interpreting and reviewing diagnostic studies and lab tests. Aggregate critical care time includes only time during which I was engaged in work directly related to the patient?s care, as described above, whether at bedside or elsewhere in the Emergency Department. It did not include time spent performing other reported procedures or the services of residents, students, nurses or physician assistants. Discharge Plan Plan Patient Disposition: Admit Acute Care w/in Hospital Prescriptions/Referrals Prescriptions/Med Rec: No Action cetirizine 10 mg Tablet 10 mg PO QDAY risperidone 2 mg tablet 2 mg PO QPM Patient Comments: TAKE 1 TABLET BY MOUTH EVERYDAY AT BEDTIME trazodone 100 mg Tablet 100 mg PO QDAY propranolol 20 mg tablet 10 mg PO BID Patient Comments: TAKE 1 TABLET BY MOUTH EVERYDAY AT BEDTIME cephalexin 500 mg capsule 500 mg PO BID Qty: 20 0RF Referrals: No Primary/Family,Physician [Primary Care Provider] - In 1 week Problem List Clinical Impression: Delirium tremens, Alcohol withdrawal seizure, Leukopenia, Thrombocytopenia, Alcoholic ketoacidosis, Hypomagnesemia, Elevated LFTs Patient/Caregiver Discharge Instructions Print Language: Fijian Stand Alone Forms: [facility] Award Info., Patient Portal Info Letter
[2025-01-17] MEDS: RINGERS LACTATED 1000 ML 1,000 ML IV ×2 (22:37→23:14)
[2025-01-17] MEDS: ONDANSETRON INJ 2 MG/ML INJ 2 ML 4 MG IV (22:37)
[2025-01-17] MEDS: PANTOPRAZOLE INJ 40 MG VIAL 80 MG IVP (22:54)
--- NOTE | 2025-01-17 22:55 | PD.IMCONS ---
HPI Data of Consult Primary Care Provider: Physician No Primary/Family Consult Narrative cc:: cc: Meds Home Medications and Allergies Home Medications ?Medication ?Instructions ?Recorded ?Confirmed ?Type cetirizine 10 mg tablet 10 mg PO QDAY 01/31/24 01/18/25 History risperidone 2 mg tablet 2 mg PO QPM 01/31/24 01/18/25 History trazodone 100 mg tablet 100 mg PO QDAY 01/31/24 01/18/25 History Allergies Allergy/AdvReac Type Severity Reaction Status Date / Time No Known Allergies Allergy Verified 07/02/23 16:20 Exam Vital Signs Temp Pulse Resp BP Pulse Ox O2 Del Method 98.4 F 97 18 148/87 H 93 L Room Air 01/17/25 21:53 01/17/25 21:53 01/17/25 21:53 01/17/25 21:53 01/17/25 21:53 01/17/25 21:53 Results Labs 01/19/25 04:48 01/19/25 04:48
[2025-01-17 23:00] LABS: Lactate (Lactic Acid) 3.5 mMol/L (0.4-2.0)
[2025-01-17 23:11] LABS: Basophils % (Auto) 0 % (0-2.5); Eosinophils % (Auto) 0 % (0-10); Hematocrit 37.1 % (41.0-53.0); Hemoglobin 12.7 g/dL (13.5-16.0); Immature Granulocytes % (Auto) 0 % (0-0); Immature Granulocytes Auto 0.01 Thou/mm3 (0.00-0.00); Lymphocytes # (Auto) 0.3 Thou/mm3 (1.0-4.8); Lymphocytes % (Auto) 10 % (10-50); Mean Corpuscular HGB Conc 34.2 g/dl (31.0-37.0); Mean Corpuscular Hemoglobin 30.5 pg (25.0-35.0); Mean Corpuscular Volume 89 fL (80-100); Monocytes # (Auto) 0.3 Thou/mm3 (0.0-0.8); Monocytes % (Auto) 10 % (0-12); Neutrophils # (Auto) 2.3 Thou/mm3 (1.8-7.7); Neutrophils % (Auto) 80 % (37-80); Nucleated Red Blood Cell % 0 /100 WBC (0); RDW Standard Deviation 45.8 fL (35.1-43.9); Red Blood Count 4.17 Miln/mm3 (4.50-5.90)
[2025-01-17 23:16] LABS: Beta Hydroxybutyrate 1.4 mmol/L (<0.6)
[2025-01-17 23:17] LABS: INR 1.2 (0.9-1.3); Partial Thromboplastin Time 26.2 Seconds (22.0-36.0); Prothrombin Time 12.6 Seconds (9.0-12.2)
[2025-01-17 23:27] LABS: White Blood Count 2.9 Thou/mm3 (3.8-10.6)
[2025-01-17 23:28] LABS: Platelet Count 27 Thou/mm3 (140-440)
[2025-01-17 23:29] LABS: Slide Review Platelets confirmed
[2025-01-17 23:30] LABS: Path Review Blood Smear Sent to Pathologist
[2025-01-17] MEDS: PANTOPRAZOLE/NS 80MG IV PREMIX 80 MG/100 ML BAG 10 MG IV (23:41)
[2025-01-17] MEDS: OCTREOTIDE ACET INJ 1,000 MCG in SODIUM CHLORIDE 0.9% 100 ML 5.1 MCG IV (23:43)
[2025-01-17] MEDS: OCTREOTIDE ACET INJ 50 mCg/ML VIAL IV (23:44)
[2025-01-17 23:46] LABS: Alanine Aminotransferase 69 U/L (10-49); Albumin, Serum 4.2 gm/dL (3.5-5.0); Albumin/Globulin Ratio 1.1 (1.2-2.2); Alkaline Phosphatase 104 U/L (46-116); Anion Gap 13 (7-16); Aspartate Amino Transferase 168 U/L (0-34); BUN/Creatinine Ratio 15 Ratio (12-20); Bilirubin,Total 1.9 mg/dL (0.3-1.2); Blood Urea Nitrogen 9 mg/dL (9-23); Calcium 9.6 mg/dL (8.3-10.6); Calcium (Corrected) 9.6 mg/dL (8.5-10.1); Carbon Dioxide 22.9 mMol/L (20.0-31.0); Chloride 103 mMol/L (98-107); Creatine Kinase 195 U/L (34-171); Creatinine (Component) 0.6 mg/dL (0.6-1.3); Glucose 121 mg/dL (74-106); Magnesium 1.2 mg/dL (1.6-2.6); Osmolality,Calculated 277 (275-295); Phosphorous 1.8 mg/dL (2.4-5.1); Potassium 3.7 mMol/L (3.4-5.1); Sodium 139 mMol/L (136-145); Total Protein 8.2 gm/dL (5.7-8.2); eGFR > 60 See Note
[2025-01-18] VITALS (22 sets, daily range): BP systolic 118–166; BP diastolic 86–108; PULSE 59–156; RESP 12–20; TEMP 35.9–37.4; O2SAT 91–100; BMI 29.2; BMI 37.5
[2025-01-18] MEDS: Magnesium Sulfate 4 GM Ivpb 4 GM/50 ML BAG IV (00:31)
--- NOTE | 2025-01-18 00:50 | XR_ITS ---
Examination: Abdomen sonogram, Limited Date and time of exam: January 18, 2025 0306 hours INDICATIONS: Alcohol abuse disorder with seizure yesterday and abdominal pain Technique: Real-time espino scale transabdominal sonographic images of the upper abdomen obtained. Findings: Gallbladder sludge No gallstones Gallbladder wall 0.3 cm Common bile duct 0.3 cm Pancreas obscured by bowel gas Hepatomegaly 21.5 cm fatty infiltration lobular contour Normal portal venous flow Patent IVC IMPRESSION: Gallbladder sludge Negative for cholelithiasis, negative for cholecystitis Significant hepatomegaly, primary hepatocellular disease, fatty infiltration, no focal liver lesions
--- NOTE | 2025-01-18 01:16 | PD.RESHP ---
Documentation for date of: 01/18/25 HPI History of Present Illness History of present illness: Patient is a 34-year-old male with previous medical history of alcohol abuse, anxiety, depression, hypertension, withdrawal seizures who presented to the ED after he had a series of seizures. His mother at the bedside, reports that he was sitting on the sofa, he started to have jerking movements of extremities that lasted for approximately 15 to 20 seconds, then he screamed and had another episode with eyes rolling and shaking that lasted 10-15 sec and after that, another one, in total 5 episodes in approximately 1 minute. After that patient was confused but came back to his baseline. She denies that he hit his head. His last alcohol drink was yesterday. He usually drinks alcohol every day, per mother 4 beer cans since 16 years old. He started to have seizures approximately a year ago, and his mother noticed that the frequency of the seizures have started to increase, now seizures happen every month. Patient himself does not remember seizures, denies auras, he only remembers EMS arriving. He also reports feeling nauseous and vomiting, reports brown-red vomitus. His mother also reports that he is following up with psychologist and that he sometimes hears voices. She reports that he is taking trazodone and risperidone at home. At the moment of examination he denies suicidal and homicidal ideations. He denies hearing voices. In the ED he was hemodynamically stable, tachycardic, saturating adequately on room air. He had episode of coffee-ground emesis. He was shaky and sweaty. He received IV phenobarbital 130 mg twice, after that his tremulousness has improved. Labs were remarkable for hemoglobin 12.7, WBC 2.9, platelets 27, INR 1.2, creatinine 0.6, lactic acid 3.5, phosphorus 1.8, magnesium 1.2, total bilirubin 1.9, AST 168, ALT 69, creatinine kinase 195, albumin 4.2, beta hydroxybutyrate 1.4. EKG showed sinus rhythm. Chest x-ray was negative for active pulmonary disease. GI specialist Dr. Miguel was consulted by the ED, recommended to start octreotide drip and pantoprazole. Patient is going to be admitted for alcohol withdrawal seizures, upper GI bleed treatment and management. Social history: Unemployed, does not drive, denies smoking, denies recreational substances, drinks alcohol every day, approximately 4 bottles of beer every day. Medications: Med rec is pending Review of Systems Review of Systems Narrative Review of Systems: General: Denies weight loss, fever and chills. HEENT: Denies changes in vision and hearing. Resp: Denies SOB, cough and wheezing. CVS: Denies palpitations and CP. GI: Denies abdominal pain, nausea, diarrhea. Reports nausea, vomiting. : Denies dysuria and urinary frequency. MSK: Denies myalgia and joint pain. Denies rash and pruritus. Neuro: Denies headache and syncope. Psych: Denies hearing voices, being irritable. Past Medical History Past Medical History NEUROLOGIC: Positive Seizures; Negative Neurological Disorders, Cerebrovascular Accident, Transient Ischemic Attacks (TIA), Dementia, Alzheimer's Disease, Parkinson's Disease, Brain Tumor, Meningitis, Epilepsy, Multiple Sclerosis, Cerebral Palsy, Amyotrophic Lateral Sclerosis (ALS/Lizbeth Gehrig's), Guillain-Liberty Syndrome, Spina Bifida, Paralysis, Peripheral Neuropathy, Jara's Palsy, Subdural Hematoma, Migraine, Head Trauma, Spinal Cord Injury or Traumatic Brain Injury CARDIAC: Positive Cardiac Disorders and Hypertension; Negative Myocardial Infarction, Cardiac Arrhythmia, Atrial Fibrillation, Angina, Heart Murmur, Coronary Artery Disease, Atherosclerotic Heart Disease, Peripheral Vascular Disease, Hypercholesterolemia, Aneurysm, Congestive Heart Failure, Congenital Heart Disease, Valvular Heart Disease, Rheumatic Fever, Cardiomyopathy, Edema, Pericarditis, Cellulitis, Deep Vein Thrombosis, Hypotension or Varicose Veins RESPIRATORY: Negative Chronic Obstructive Pulmonary Disease (COPD), Asthma, Bronchitis, Emphysema, Pneumonia, Pulmonary Fibrosis, Cystic Fibrosis, Tuberculosis, Pulmonary Embolism, Pulmonary Edema or Sleep Apnea GASTROINTESTINAL: Positive Cirrhosis (ALCOHOL DEPENDENT); Negative Gastrointestinal Disorders, Hepatitis, Pancreatitis, Celiac Disease, Gall Bladder Disease, Gastrointestinal Bleed, Esophageal Varices, Soto's Esophagus, Colitis, Ulcerative Colitis, Diverticulitis, Diverticulosis, Ulcer, Colorectal Cancer, Irritable Bowel, Crohn's Disease, Obstructive Bowel, Hiatal Hernia, Hemorrhoids, Gastroesophageal Reflux Disease or Obesity GENITOURINARY: Negative Genitourinary Disorders, Renal Disease, Kidney Stones, Polycystic Kidney Disease, Neurogenic Bladder, Inguinal Hernia, Dialysis, Prostate Cancer or Benign Prostatic Hyperplasia REPRODUCTIVE: Negative Testicular Cancer MUSCULOSKELETAL: Negative Musculoskeletal Disorders, Myasthenia Gravis, Marfan's Syndrome, Bone Cancer, Arthritis, Rheumatoid Arthritis, Osteoporosis, Degenerative Disk Disease, Gout, Scoliosis, Carpal Tunnel Syndrome, Fibromyalgia, Fractures, Degenerative Joint Disease, Osteomyelitis or Poliovirus ENT: Negative Cataracts, Glaucoma, Blind, Retinal Detachment, Macular Degeneration, Ear Infection, Deafness, Head Trauma or Eye Prosthesis ENDOCRINE: Negative Endocrine Disorders, Diabetes Mellitus Type 1, Diabetes Mellitus Type 2, Hypoglycemia, Taylor's Syndrome, [place]'s Disease, Hyperthyroidism, Hypothyroidism, Parathyroid Disease, Pituitary Disease, Systemic Lupus Erythematosus, Syndrome of Inappropriate Antidiuretic Hormone (SIADH), Adrenal Disease or Graves' Disease HEMATOLOGIC: Negative Blood Disorders, Anemia, Leukemia, Hemophilia, Thalassemia, Sickle Cell Disease or Clotting Problems PSYCHO/SOCIAL: Positive Psychiatric Problems; Negative Schizophrenia, Recreational Drug Use, Bipolar Disorder, Depression, Anxiety, Behavior Problems, Self-Mutilation, Attention Deficit Disorder, Attention Deficit Hyperactivity Disorder, Post Traumatic Stress Disorder or Eating Disorder OTHER HISTORY: Negative Hospitalization, Autoimmune Disease, Down Syndrome, Autism, Developmental Delay, Shingles, Falls, Blood Transfusions, Blood Transfusion Reaction, Anesthesia Reactions, Organ Transplant, Chemotherapy, Radiation Therapy, Hyperbaric Therapy, MRSA, VRSA, Vancomycin-Resistant Enterococci, Human Immunodeficiency Virus (HIV), Chicken Pox, Measles, Mumps, Rubella ([place] Measles), Pertussis, Clostridium Difficile, Cancer, Colorectal Cancer, Lung Cancer, Prostate Cancer or Testicular Cancer Family History FAMILY HISTORY: Negative Family Psychiatric Problems, Family Respiratory Disorders, Family Cardiac Disorders, Family Gastrointestinal Problems, Family Cancer, Family Surgery or Family Anesthesia Reaction Surgical History SURGICAL: Negative Cardiac Surgery, Open Heart Surgery, Coronary Artery Bypass Graft, Valve Replacement, Vascular Surgery, Coronary Stent, Cardiac Catheterization, Pacemaker, Angiogram, Auto Implanted Cardiovert Defib, Carotid Endarterectomy, Endocrine Surgery, Thyroidectomy, Ear Surgery, Tympanostomy Tube, Eye Surgery, Nose Surgery, Oral Surgery, Tonsillectomy, Adenoidectomy, Cochlear Implant, Corneal Transplant, Throat Surgery, Abdominal Surgery, Tracheostomy, Gastric Bypass Surgery, Gastrostomy, Bowel Surgery, Nephrectomy, Transurethral Resection, Joint Replacement, Amputation, Open Reduction Internal Fixation, Arthroscopy, Neurologic Surgery, Brain Shunt, Vasectomy or Organ Transplant Social History SMOKING STATUS: Never smoker SECOND HAND EXPOSURE: No Exam Vital Signs Temp Pulse Resp BP Pulse Ox O2 Del Method 99.4 F 80 16 150/104 H 94 L Room Air 01/18/25 00:26 01/18/25 00:26 01/18/25 00:26 01/18/25 00:26 01/18/25 00:26 01/18/25 00:26 Narrative Exam Physical Exam General: Awake, mildly diaphoretic. HEENT: Normocephalic, atraumatic, mucous membranes moist. Healing bruise on the right cheek. Heart: Regular rate and rhythm, no murmurs. Lungs: Clear to auscultation with no wheezing or crackles. Abdomen: Soft, nondistended, nontender, positive bowel sounds. ?No guarding or rebound tenderness. Neurologic: Alert and oriented x3, no gross neurological deficit, and patient able to move all 4 extremities. Moderate tremor when arms extented. No resting tremor. Extremities: No edema. Skin: No rash or ecchymoses. Results: Labs 01/18/25 05:00 01/17/25 22:53 Labs: Short CBC 01/17/25 Range/Units 22:49 WBC 2.9 L (3.8-10.6) Thou/mm3 Hgb 12.7 L (13.5-16.0) g/dL Hct 37.1 L (41.0-53.0) % Plt Count 27 L* (140-440) Thou/mm3 BMP 01/17/25 22:53 Sodium 139 Potassium 3.7 Chloride 103 Carbon Dioxide 22.9 BUN 9 Creatinine 0.6 Glucose 121 H Calcium 9.6 Cardiac Enzymes 01/17/25 Range/Units 22:53 Total Creatine Kinase 195 H (34-171) U/L Liver Function 01/17/25 Range/Units 22:53 Total Bilirubin 1.9 H (0.3-1.2) mg/dL AST 168 H (0-34) U/L ALT 69 H (10-49) U/L Alkaline Phosphatase 104 (46-116) U/L Albumin 4.2 (3.5-5.0) gm/dL Quality Measures Quality Measures none Medications Home Medications and Allergies Home Medications ?Medication ?Instructions ?Recorded ?Confirmed ?Type cetirizine 10 mg tablet 10 mg PO QDAY 01/31/24 01/18/25 History risperidone 2 mg tablet 2 mg PO QPM 01/31/24 01/18/25 History trazodone 100 mg tablet 100 mg PO QDAY 01/31/24 01/18/25 History Allergies Allergy/AdvReac Type Severity Reaction Status Date / Time No Known Allergies Allergy Verified 07/02/23 16:20 Visit Medications Acetaminophen (Acetaminophen 325 Mg Tablet) 650 mg PO Q6H PRN PRN Reason: Fever >100.3 or pain 1-3 Stop: 02/17/25 00:31 Folic Acid (Folic Acid 1 Mg Tablet) 1 mg PO BID NA Stop: 01/23/25 08:59 Octreotide Acetate 1,000 mcg/ (Sodium Chloride) 102 mls @ 5.1 mls/hr IV .Q20H NA; Protocol Stop: 01/22/25 22:35 Pantoprazole Sodium (Protonix/Ns 80mg Iv Premix) 80 mg in 100 mls @ 10 mls/hr IV X1 ONE Stop: 01/18/25 08:35 Last Admin: 01/17/25 23:41 Dose: 10 mls/hr Octreotide Acetate 1,000 mcg/ (Sodium Chloride) 102 mls @ 5.1 mls/hr IV .Q20H NA; Protocol Stop: 01/18/25 18:44 Last Admin: 01/17/25 23:43 Dose: 50 mcg/hr, 5.1 mls/hr Magnesium Sulfate (Magnesium Sulfate Ivpb) 4 gm in 50 mls @ 12.5 mls/hr IV X1 ONE Stop: 01/18/25 03:48 Last Admin: 01/18/25 00:31 Dose: 12.5 mls/hr Potassium Chloride (Kcl Ivpb) 10 meq in 100 mls @ 100 mls/hr IV Q1H NA Stop: 01/18/25 01:48 Dextrose/Sodium Chloride (D5-Ns) 1,000 mls @ 100 mls/hr IV .Q10H ONE Stop: 01/18/25 10:59 Lorazepam (Lorazepam 0.5 Mg Tablet) 0.5 mg PO Q4HR PRN PRN Reason: CIWA Score 2-6 Stop: 01/23/25 00:41 Lorazepam (Lorazepam 2 Mg/Ml Vial) 1 mg IV Q2HR PRN PRN Reason: CIWA SCORE 14-19 Stop: 01/23/25 00:41 Lorazepam (Lorazepam 2 Mg/Ml Vial) 0.5 mg IV Q2HR PRN PRN Reason: CIWA SCORE 7-13 Stop: 01/23/25 00:41 Lorazepam (Lorazepam 2 Mg/Ml Vial) 2 mg IV Q2HR PRN PRN Reason: CIWA SCORE 20-25 Stop: 01/23/25 00:41 Ondansetron HCl (Ondansetron Inj 2 Mg/Ml Inj 2 Ml) 4 mg IV Q6H PRN; Protocol PRN Reason: NAUSEA OR VOMITING Stop: 02/17/25 00:31 Pantoprazole Sodium (Pantoprazole Inj 40 Mg Vial) 40 mg IVP Q12HR NA Stop: 02/17/25 08:59 Phenobarbital (Phenobarbital 32.4 Mg Tablet) 64.8 mg PO TID NA Stop: 02/01/25 05:59 Sennosides (Senna Tablet) 1 tab PO QDAY PRN; Protocol PRN Reason: constipation Stop: 02/17/25 00:31 Thiamine HCl (Thiamine 100 Mg Tablet) 100 mg PO BID [facility] Stop: 01/23/25 08:59 Discontinued Medications Phenobarbital Sodium 130 mg/ (Sodium Chloride 12 ml) 0 mg IVP X1 ONE Stop: 01/17/25 22:19 Last Admin: 01/17/25 22:26 Dose: 130 mg Phenobarbital Sodium 130 mg/ (Sodium Chloride 12 ml) 0 mg IVP X1 ONE Stop: 01/17/25 22:35 Last Admin: 01/17/25 22:52 Dose: 130 mg Lactated Ringer's (Lactated Ringers) 1,000 mls @ 1,000 mls/hr IV Q1H [facility] Stop: 01/18/25 00:29 Last Admin: 01/17/25 23:14 Dose: 1,000 mls/hr Thiamine HCl 100 mg/ Sodium (Chloride) 51 mls @ 102 mls/hr IV X1 STA Stop: 01/18/25 01:08 Magnesium Sulfate (Magnesium Sulfate Ivpb) 4 gm in 50 mls @ 12.5 mls/hr IV X1 ONE Stop: 01/18/25 04:52 Octreotide Acetate (Octreotide Acet Inj 50 Mcg/Ml Vial) 50 mcg IV X1 ONE Stop: 01/17/25 22:35 Last Admin: 01/17/25 23:44 Dose: 50 mcg Ondansetron HCl (Ondansetron Inj 2 Mg/Ml Inj 2 Ml) 4 mg IV X1 ONE; Protocol Stop: 01/17/25 22:31 Last Admin: 01/17/25 22:37 Dose: 4 mg Pantoprazole Sodium (Pantoprazole Inj 40 Mg Vial) 80 mg IVP X1 ONE Stop: 01/17/25 22:35 Last Admin: 01/17/25 22:54 Dose: 80 mg Potassium Phos/Sodium Phos (Naph,[facility] Mbdb 1 Packet (1.5 Gm)) 1 packet PO X1 ONE Stop: 01/18/25 00:54 Assessment & Plan Plan Patient is a 34-year-old male with previous medical history of alcohol abuse, anxiety, depression, hypertension, withdrawal seizures who presented to the ED after he had a series of seizures. n the ED he also had coffee ground emesis. Patient was admitted for withdrawal seizure and GI bleed management and treatment. #Alcohol withdrawal seizures #Alcohol use disorder #Alcohol withdrawal Patient has a longstanding history of alcohol use and started to have seizures a year ago. His last drink was yesterday. His mother reports that the frequency of seizures has increased and he has been having seizures while drinking alcohol. After IV phenobarbital, CIWA score is 8. Plan: ? Telemetry ? Phenobarbital 64.8 mg 3 times daily p.o. ? Lorazepam as needed per CIWA protocol ? Seizure precautions ? Aspiration precautions ? Head of bed elevation 30 degrees ? Neurology consult ? services coordinator consult ?Thiamine 100 mg IV once, then start thiamine p.o. ? Folate p.o. ? D5/NS 100 mL/h after thiamine IV #Upper GI bleed In the ED patient had coffee-ground emesis, GI specialist Dr. Miguel was consulted, recommended to start octreotide drip and pantoprazole. Hemoglobin is 12.7 Plan: ? Octreotide drip ? Pantoprazole 40 mg daily ? GI consulted, appreciate recommendations - EGD pending #Pancytopenia #Hyperbilirubinemia Patient has WBC count of 2.9, RBC 4.17, hemoglobin 12.7, platelets 27. Could be in the setting of chronic alcohol abuse. In the setting of longstanding alcohol use there is a concern for liver cirrhosis. Plan: ? Monitor CBC ? 1 unit of platelets ? Liver ultrasound ordered #Hypomagnesemia #Hypophosphatemia Plan: Replete electrolytes as necessary #History of depression #History of anxiety Small he reports that sometimes he hears voices, he has been taking trazodone and risperidone at home. At the morning he denies hearing voices. Plan: ? Med rec is pending - utox ordered Health maintenance: FEN: NPO DVT prophylaxis: SCDs GI prophylaxis: pantoprazole 40 mg bid Dispo: telemetry CODE STATUS: Full code Plan of care discussed with attending Dr. Doss, PGY-[address] Murphy. Stephanie So MD, PGY 1. Attending Provider Attestation/Addendum I attest that I was physically present for the evaluation, physical examination, lab and imaging review of the patient with the residents. I discussed the case with the residents and agree with the findings and plans of care as documented above. 34 years old male with past medical history of alcohol abuse, anxiety, depression, hypertension, alcohol withdrawal seizures who presented to the ED after multiple episodes of seizures. At the time of exam, patient was alert and oriented, able to answer questions and follow commands appropriately. As per the patient and his family at bedside, patient had total of 5 episodes of jerking movement lasting 15 to 20 seconds. He came to his baseline mentation within 2 to 3 minutes. Patient drinks heavily, about 4 tall beers per day. His last drink was yesterday. Patient has been having acute seizure episodes for more than a year, and lately his episodes have been more frequent. In the ED, he is tachycardic and hypertensive. Lab results show WBC of 2.9, hemoglobin 12.7, platelets 27 which appears chronic. He also has lactic acid of 3.5, phosphorus 1.8, magnesium 1.2, total bilirubin 1.9, AST/ALT 168/69, creatinine kinase 195 and beta hydroxybutyrate 1.4. Chest x-ray was done, which was negative for acute pathology. Patient had a episode of vomiting also had trauma to his mouth during the seizure. Blood was noted on his vomitus unable to rule out GI bleed. We will admit the patient for management of alcohol withdrawal seizures. We will start him on oral phenobarbital and CIWA protocol. We will keep him on seizure precautions, aspiration precautions, frequent neurochecks. Also started on thiamine, folate and IV hydration. Patient is started on octreotide drip, pantoprazole IV and gastroenterology was consulted. As patient is suspected for bleeding and his platelets are severely low at 27, we will transfuse him with 1 unit of platelets. We will also replete his electrolytes as needed. We will also obtain neurology consult given his frequent seizure episodes. Matt Doss MD
[2025-01-18] MEDS: POTASSIUM CHL 10 mEq IVPB 10 MEQ/100 ML BAG 100 MEQ IV ×2 (01:19→02:34)
[2025-01-18 01:57] LABS: Reflex Lactate? Y
[2025-01-18 02:09] LABS: Lactic Acid, 3 HR 1.1 mMol/L (0.4-2.0)
[2025-01-18] MEDS: THIAMINE INJ 100 MG in SODIUM CHLORIDE 0.9% 50 ML 102 MG IV (02:37)
[2025-01-18] MEDS: NAPH,KPH MBDB 1 PACKET (1.5 GM) PO (03:17)
[2025-01-18] MEDS: LORazepam 2 MG/ML VIAL 0.5 MG IV ×3 (03:33→21:29)
[2025-01-18 03:37] LABS: Collection Type, Urine Catheter; WBC,Urine 0 /hpf (0-5)
[2025-01-18] MEDS: DEXTROSE 5%-NS 1,000 ML 100 ML IV (03:39)
--- NOTE | 2025-01-18 04:36 | PRELIM_ITS ---
Ultrasound liver with Doppler and wave Doppler spectral analysis. January 18, 2025 at 0306 hours Clinical history: Alcohol use. Comparison: None available at the time of this report. Findings: The liver measures 21.5 cm and demonstrates heterogenous increased echotexture. Nodular liver margins. There is no intrahepatic biliary ductal dilatation. The main portal vein demonstrates hepatopetal flow. The visualized hepatic veins appear patent. The common hepatic duct is normal in caliber. The portal vein is patent with hepatopetal flow and normal wave Doppler spectral analysis. Gallbladder wall thickening. Gallbladder is large. Champagne sign is not available at the time of this report. Impression: 1. Hepatomegaly associated with liver steatosis, suspicious for steatohepatitis. 2. Probable cirrhosis. 3. Gallbladder sludge and gallbladder wall thickening, suspicious for acute cholecystitis. Report Electronically Signed By: Kamran Frye 01/18/2025 4:36:21 AM [EST]
[2025-01-18 04:38] LABS: Bacteria,Urine Rare; Bilirubin,Urine Negative (Negative); Blood,Urine 1+ (Negative); Clarity,Urine Clear (Clear/Hazy); Color,Urine Yellow (Lt Yel-Yel); Glucose, Urine Negative (Negative); Ketones,Urine 1+ (Negative); Leukocyte Esterase,Urine Negative (Negative); Nitrite,Urine Negative (Negative); Protein,Urine 2+ (Neg - Trace); RBC,Urine 12 /hpf (0-3); Specific Gravity,Urine 1.021 (1.001-1.035); Squamous Epithelial Cell,Urine < 1 /hpf (0-5)
[2025-01-18] MEDS: PHENobarbitaL 32.4 MG TABLET 64.8 MG PO ×3 (05:15→21:17)
[2025-01-18 05:21] LABS: Lactate (Lactic Acid) 1.9 mMol/L (0.4-2.0)
[2025-01-18 05:33] LABS: Basophils % (Auto) 0 % (0-2.5); Eosinophils % (Auto) 0 % (0-10); Hematocrit 32.4 % (41.0-53.0); Hemoglobin 11.1 g/dL (13.5-16.0); Immature Granulocytes % (Auto) 1 % (0-0); Immature Granulocytes Auto 0.02 Thou/mm3 (0.00-0.00); Lymphocytes # (Auto) 0.5 Thou/mm3 (1.0-4.8); Lymphocytes % (Auto) 18 % (10-50); Mean Corpuscular HGB Conc 34.3 g/dl (31.0-37.0); Mean Corpuscular Hemoglobin 30.5 pg (25.0-35.0); Mean Corpuscular Volume 89 fL (80-100); Monocytes # (Auto) 0.4 Thou/mm3 (0.0-0.8); Monocytes % (Auto) 14 % (0-12); Neutrophils # (Auto) 1.7 Thou/mm3 (1.8-7.7); Neutrophils % (Auto) 67 % (37-80); Nucleated Red Blood Cell % 0 /100 WBC (0); RDW Standard Deviation 45.7 fL (35.1-43.9); Red Blood Count 3.64 Miln/mm3 (4.50-5.90)
[2025-01-18 05:42] LABS: Platelet Count 27 Thou/mm3 (140-440); White Blood Count 2.6 Thou/mm3 (3.8-10.6)
[2025-01-18 05:44] LABS: Slide Review Platelets confirmed
[2025-01-18 06:25] LABS: Alanine Aminotransferase 56 U/L (10-49); Albumin, Serum 3.8 gm/dL (3.5-5.0); Albumin/Globulin Ratio 1.1 (1.2-2.2); Alkaline Phosphatase 83 U/L (46-116); Anion Gap 14 (7-16); Aspartate Amino Transferase 147 U/L (0-34); BUN/Creatinine Ratio 13 Ratio (12-20); Blood Urea Nitrogen 8 mg/dL (9-23); Calcium 8.9 mg/dL (8.3-10.6); Calcium (Corrected) 9.1 mg/dL (8.5-10.1); Carbon Dioxide 23.5 mMol/L (20.0-31.0); Chloride 98 mMol/L (98-107); Creatinine (Component) 0.6 mg/dL (0.6-1.3); Estimated Creatinine Clearance 202.1 mL/min (>60); Globulin 3.6 gm/dL (2.3-3.5); Glucose 208 mg/dL (74-106); Magnesium 1.7 mg/dL (1.6-2.6); Osmolality,Calculated 274 (275-295); Potassium 4.7 mMol/L (3.4-5.1); Sodium 135 mMol/L (136-145); Total Protein 7.4 gm/dL (5.7-8.2); eGFR > 60 See Note
[2025-01-18] MEDS: PANTOPRAZOLE INJ 40 MG VIAL IVP ×2 (08:03→21:16)
[2025-01-18] MEDS: THIAMINE 100 MG TABLET PO ×2 (08:03→21:17)
[2025-01-18] MEDS: FOLIC ACID 1 MG TABLET PO ×2 (08:03→21:17)
--- NOTE | 2025-01-18 09:57 | ESPR_ITS ---
<Statement entered by Jonathan Carty MD - 01/24/25 09:27> I reviewed above note and agree with findings and plans. I have also personally examined the patient with medicine team and went over assessment and plan with medical team including internal control manager and resident physician. Documentation for date of: 01/18/25 Subjective Subjective Interval history: Patient examined at bedside. No distress, comfortable. CIWA at bedside score 1. No new onset seizures. Dr. Miguel is planning on EGD to rule out possible GI bleed vs oral trauma during seizure as patient had episode of coffee ground emesis as well. Dr. Davalos recs are pending. Patient may get EEG. Lactic acid downtrending. Will monitor transaminits. Currently physical exam benign. Continue CIWA with scheduled phenobarbital TID. Exam Vital Signs Temp Pulse Resp BP Pulse Ox O2 Del Method O2 Flow Rate 98.5 F 65 12 137/97 H 91 L Room Air 94 01/18/25 08:00 01/18/25 08:00 01/18/25 08:00 01/18/25 08:00 01/18/25 08:00 01/18/25 08:00 01/18/25 03:22 Narrative Exam General: Awake, no distress, young male HEENT: Normocephalic, atraumatic, mouth has dried blood on gums and lips Heart: Regular rate and rhythm, no murmurs. Lungs: Clear to auscultation with no wheezing or crackles. Abdomen: Soft, nondistended, nontender, positive bowel sounds. ?No guarding or rebound tenderness. Neurologic: Alert and oriented x3, no gross neurological deficit, and patient able to move all 4 extremities. Tremor felt at fingertips, No resting tremor. No hallucinations Extremities: No edema. Skin: No rash, ecchomyses on right arm Objective Labs 01/18/25 05:00 01/18/25 05:00 Labs: Laboratory Results - last 24 hr 01/17/25 01/17/25 01/18/25 22:49 22:53 02:04 WBC 2.9 L RBC 4.17 L Hgb 12.7 L Hct 37.1 L MCV 89 MCH 30.5 MCHC 34.2 RDW Std Deviation 45.8 H Plt Count 27 L* Neut % (Auto) 80 Lymph % (Auto) 10 [place] % (Auto) 10 Eos % (Auto) 0 Baso % (Auto) 0 Neut # (Auto) 2.3 Lymph # (Auto) 0.3 L [place] # (Auto) 0.3 Eos # (Auto) 0.0 Baso # (Auto) 0.0 Immature Gran # (Auto) 0.01 H Absolute Nucleated RBC 0.00 Immature Gran % 0 Nucleated RBC % 0 Smear Path Review Sent to Pathologist PT 12.6 H INR 1.2 APTT 26.2 Sodium 139 Potassium 3.7 Chloride 103 Carbon Dioxide 22.9 Anion Gap 13 BUN 9 Creatinine 0.6 Estim Creat Clear Calc Not Performed. eGFR > 60 BUN/Creatinine Ratio 15 Glucose 121 H Calculated Osmolality 277 Lactic Acid 3.5 H 1.1 Calcium 9.6 Corrected Calcium 9.6 Phosphorus 1.8 L Magnesium 1.2 L Total Bilirubin 1.9 H AST 168 H ALT 69 H Alkaline Phosphatase 104 Total Creatine Kinase 195 H Total Protein 8.2 Albumin 4.2 Globulin 4.0 H Albumin/Globulin Ratio 1.1 L Beta-Hydroxybutyrate/Acetoacetate 1.4 H Ur Collection Type Urine Color Urine Clarity Urine pH Ur Specific [place] Urine Protein Urine Glucose (UA) Urine Ketones Urine Blood Urine Nitrite Urine Bilirubin Urine Urobilinogen (Auto) Ur Leukocyte Esterase Urine RBC Urine WBC Ur Squamous Epith Cells Urine Bacteria Misc Test Result Platelets confirmed Blood Type O Positive Antibody Screen NEGATIVE Blood Bank Wristband ID Yes 01/18/25 01/18/25 03:30 05:00 WBC 2.6 L RBC 3.64 L Hgb 11.1 L Hct 32.4 L MCV 89 MCH 30.5 MCHC 34.3 RDW Std Deviation 45.7 H Plt Count 27 L* Neut % (Auto) 67 Lymph % (Auto) 18 [place] % (Auto) 14 H Eos % (Auto) 0 Baso % (Auto) 0 Neut # (Auto) 1.7 L Lymph # (Auto) 0.5 L [place] # (Auto) 0.4 Eos # (Auto) 0.0 Baso # (Auto) 0.0 Immature Gran # (Auto) 0.02 H Absolute Nucleated RBC 0.00 Immature Gran % 1 H Nucleated RBC % 0 Smear Path Review PT INR APTT Sodium 135 L Potassium 4.7 D Chloride 98 Carbon Dioxide 23.5 Anion Gap 14 BUN 8 L Creatinine 0.6 Estim Creat Clear Calc 202.1 eGFR > 60 BUN/Creatinine Ratio 13 Glucose 208 H D Calculated Osmolality 274 L Lactic Acid 1.9 Calcium 8.9 Corrected Calcium 9.1 Phosphorus Magnesium 1.7 Total Bilirubin 2.0 H AST 147 H ALT 56 H Alkaline Phosphatase 83 D Total Creatine Kinase Total Protein 7.4 Albumin 3.8 Globulin 3.6 H Albumin/Globulin Ratio 1.1 L Beta-Hydroxybutyrate/Acetoacetate Ur Collection Type Catheter Urine Color Yellow Urine Clarity Clear Urine pH 7.0 Ur Specific [place] 1.021 Urine Protein 2+ A Urine Glucose (UA) Negative Urine Ketones 1+ A Urine Blood 1+ A Urine Nitrite Negative Urine Bilirubin Negative Urine Urobilinogen (Auto) 6.0 Ur Leukocyte Esterase Negative Urine RBC 12 H Urine WBC 0 Ur Squamous Epith Cells < 1 Urine Bacteria Rare Misc Test Result Platelets confirmed Blood Type Antibody Screen Blood Bank Wristband ID Quality Measures Quality Measures none Assessment & Plan Assessment Current Active Medications: Generic Name Dose Route Start Last Admin Trade Name Freq PRN Reason Stop Dose Admin Acetaminophen 650 mg 01/18/25 00:32 Acetaminophen 325 Mg Tablet PO 02/17/25 00:31 Q6H PRN Fever >100.3 or pain 1-3 Folic Acid 1 mg 01/18/25 09:00 01/18/25 08:03 Folic Acid 1 Mg Tablet PO 01/23/25 08:59 1 mg BID NA Administration Octreotide Acetate 1,000 mcg/ 102 mls @ 5.1 mls/hr 01/18/25 18:45 Sodium Chloride IV 01/22/25 22:35 .Q20H NA Protocol 50 MCG/HR Octreotide Acetate 1,000 mcg/ 102 mls @ 5.1 mls/hr 01/17/25 22:45 01/17/25 23:43 Sodium Chloride IV 01/18/25 18:44 50 mcg/hr .Q20H NA 5.1 mls/hr Administration Protocol 50 MCG/HR Dextrose/Sodium Chloride 1,000 mls @ 100 mls/hr 01/18/25 01:00 01/18/25 03:39 D5-Ns IV 01/18/25 10:59 100 mls/hr .Q10H ONE Administration Lorazepam 0.5 mg 01/18/25 00:42 Lorazepam 0.5 Mg Tablet PO 01/23/25 00:41 Q4HR PRN CIWA Score 2-6 Lorazepam 1 mg 01/18/25 00:42 Lorazepam 2 Mg/Ml Vial IV 01/23/25 00:41 Q2HR PRN CIWA SCORE 14-19 Lorazepam 0.5 mg 01/18/25 00:42 01/18/25 08:15 Lorazepam 2 Mg/Ml Vial IV 01/23/25 00:41 0.5 mg Q2HR PRN Administration CIWA SCORE 7-13 Lorazepam 2 mg 01/18/25 00:42 Lorazepam 2 Mg/Ml Vial IV 01/23/25 00:41 Q2HR PRN CIWA SCORE 20-25 Ondansetron HCl 4 mg 01/18/25 00:32 Ondansetron Inj 2 Mg/Ml Inj 2 Ml IV 02/17/25 00:31 Q6H PRN NAUSEA OR VOMITING Protocol Pantoprazole Sodium 40 mg 01/18/25 09:00 01/18/25 08:03 Pantoprazole Inj 40 Mg Vial IVP 02/17/25 08:59 40 mg Q12HR NA Administration Phenobarbital 64.8 mg 01/18/25 06:00 01/18/25 05:15 Phenobarbital 32.4 Mg Tablet PO 02/01/25 05:59 64.8 mg TID NA Administration Sennosides 1 tab 01/18/25 00:32 Senna Tablet PO 02/17/25 00:31 QDAY PRN constipation Protocol Thiamine HCl 100 mg 01/18/25 09:00 01/18/25 08:03 Thiamine 100 Mg Tablet PO 01/23/25 08:59 100 mg BID NA Administration Plan Braden Shah is a 34-year-old male with previous medical history of alcohol abuse, anxiety, depression, hypertension, withdrawal seizures who presented to the ED after he had a series of seizures. In the ED he also had coffee ground emesis. Patient was admitted for withdrawal seizure and GI bleed management and treatment. #Alcohol withdrawal seizures #Alcohol use disorder #Alcohol withdrawal Patient has a longstanding history of alcohol use since 16 yrs old. Drank four 40z beers everyday or every other day. Has been trying to cut down to two a day. Started to have seizures a year ago but has never seen neurologist. His last drink was day before admission. Maddrey score 9.4--steroids not indicated. Plan: ? Telemetry ? Phenobarbital 64.8 mg 3 times daily p.o. ? Lorazepam as needed per [facility] protocol ? Seizure precautions ? Aspiration precautions ? Head of bed elevation 30 degrees ? Neurology consult ? guest services officer consult ?Thiamine 100 mg IV once, then start thiamine p.o. ? Folate p.o. ? D5/NS 100 mL/h after thiamine IV #rule out Upper GI bleed In the ED patient had coffee-ground emesis, GI specialist Dr. Miguel was consulted, recommended to start octreotide drip and pantoprazole. Hemoglobin is 12.7 on admission. Plan: ? Octreotide drip ? Pantoprazole 40 mg daily ? GI consulted, appreciate recommendations - EGD pending #Pancytopenia #Hyperbilirubinemia Patient has WBC count of 2.9, RBC 4.17, hemoglobin 12.7, platelets 27. Could be in the setting of chronic alcohol abuse. In the setting of longstanding alcohol use there is a concern for liver cirrhosis. Received 1 units platelets in ED. Plan: ? Monitor CBC ? Liver ultrasound pending #Electrolyte abnormalities Plan: -Replete as needed #History of depression #History of anxiety Small he reports that sometimes he hears voices, he has been taking trazodone and risperidone at home. At the morning he denies hearing voices. Plan: -resume home meds trazodone 100 mg QPM -risperidone 2mg daily Health maintenance: Diet: NPO DVT prophylaxis: SCDs GI prophylaxis: pantoprazole 40 mg bid Dispo: telemetry, pending EGD/neuro CODE STATUS: Full code The patient's management plan was discussed with my attending physician Dr. Carty. Amee Marks, PGY-1 FUNMILAYO discussed with and supervised the internal control manager physician who took care of this patient. I personally saw and examined the patient and discussed the assessment and plan with the entire medicine team, including my attending Dr. Carloz CHAVIRA. I agree with the assessment and plan as documented above. Patient interviewed and examined at bedside this a.m. Patient was admitted from overnight due to new onset seizures thought to be from alcohol withdrawal. Patient admits to drinking large quantities of alcohol. He usually drinks 4 to 6, 40 ounce beers per day but has recently decreased the amount to 2x 40 ounce beers. Will continue CIWI protocol for alcohol withdrawal. Neurology consulted. Patient also had coffee-ground emesis for which she was started on octreotide drip and IV Protonix. GI consulted who will perform endoscopy. Bryce Trevizo M.D. Internal Medicine PGY-3
--- NOTE | 2025-01-18 12:39 | PC.SS ---
SS met with patient regarding his d/c plan.? Pt is alert/oriented.? Pt was admitted for Withdrawal Seizure.? Pt confirmed demographic and contact information is correct on facesheet.? Pt resides with parents.? Pt ambulates independently without assistance or DME.? Pt is ok with all ADLs.? Patient?s pharmacy of choice is [facility] [address] Pt named his mom, Mayte Shah medical decision maker if he is unable.? Patient?s choice is to return home upon d/c.? Pt does not have an advance directive, SS offered, and pt declined.? Pt states not diabetic and is not on dialysis.? Pt states he last consumed alcohol 2 days ago.? Per pt, he usually consumes 3-4 40 oz beers a day.? Pt is receptive to community resources.? Pt states he will attend AA meetings.? SS provided pt with [employer] [facility].? Pt states he followed up with PCP 2 weeks ago.? D/C plan:? Return home Next of Kin:? Mayte Shah, mom, phone# [phone] PCP:? [facility] Address:? Correct on facesheet
--- NOTE | 2025-01-18 14:36 | PD.RESCONSUL ---
HPI Data of Consult Consult date: 01/18/25 Requesting Physician: Jonathan Carty MD Admitting Provider: Matt Doss MD Attending Provider: Jonathan Carty MD Primary Care Provider: Physician No Primary/Family Consult Narrative History of present illness: The patient is a 34-year-old male with a past medical history of hypertension, depression, anxiety, alcohol abuse reported withdrawal seizures who presented to the ED on 01/17/2025 after he was noted to have had a series of seizures. Patient reports that he has been having seizures for about a year, typically witnessed by his mother who reports that he started having them intermittently but they have become more frequent in the last couple months. She describes each episode of seizure to last about 30 seconds, associated with eyes rolling and shaking with no spontaneous urination but with presence of postictal paralysis and amnesia. On this episode, the mother reports that he was sitting on the chair when he screamed and had another similar episode which lasted about 20 seconds, seem to avoid in the reinitiated, she reports that he had about 5 episodes in 2 minutes. The patient does drink alcohol drink was a day prior to admission. Additionally, mother reports that the patient has been following up with a psychologist as he has been having auditory hallucinations, for which she was placed on trazodone and risperidone. In the ED, the patient although hemodynamically stable had an episode of coffee-ground emesis as well as tremulous, received IV phenobarbital on 30 mg twice. Other labs were significant for lactic acidosis, hydroxybutyrate of 1.4. Imaging was negative. GI was consulted for GI bleed patient was started on octreotide and pantoprazole. Admitted for management of withdrawal seizures, likely alcohol related Neurology consulted for management of seizures. cc:: cc: Jonathan Carty MD Review of Systems Review of Systems Systems Reviewed: All systems reviewed, normal except as documented Exam Vital Signs Temp Pulse Resp BP Pulse Ox O2 Del Method O2 Flow Rate 98.5 F 65 12 137/97 H 91 L Room Air 94 01/18/25 08:00 01/18/25 08:00 01/18/25 08:00 01/18/25 08:00 01/18/25 08:00 01/18/25 08:00 01/18/25 03:22 Narrative Exam GENERAL: AAOX3 NEURO: YOUTH OFFICER grossly intact, moves extremities x4 HEENT: Moist mucosa. Eyes open, symmetrical, & clear CARDIO: No chest pain on palpation. Heart RRR, no obvious murmurs PULM: No noted coughing/dyspnea. Lungs CTA B/L GI: Abdomen soft, nondistended, no pain on palpation. BSx4 URO/LOGGING EQUIPMENT OPERATOR:: No further abnormalities noted. SKIN/MSK/EXT: No wounds/rashes/edema/amputations, no pain on palpation. Pedal pulses present B/L Results Labs 01/19/25 04:48 01/19/25 04:48 Labs: Short CBC 01/17/25 01/18/25 Range/Units 22:49 05:00 WBC 2.9 L 2.6 L (3.8-10.6) Thou/mm3 Hgb 12.7 L 11.1 L (13.5-16.0) g/dL Hct 37.1 L 32.4 L (41.0-53.0) % Plt Count 27 L* 27 L* (140-440) Thou/mm3 BMP 01/17/25 01/18/25 22:53 05:00 Sodium 139 135 L Potassium 3.7 4.7 D Chloride 103 98 Carbon Dioxide 22.9 23.5 BUN 9 8 L Creatinine 0.6 0.6 Glucose 121 H 208 H D Calcium 9.6 8.9 Cardiac Enzymes 01/17/25 Range/Units 22:53 Total Creatine Kinase 195 H (34-171) U/L Liver Function 01/17/25 01/18/25 Range/Units 22:53 05:00 Total Bilirubin 1.9 H 2.0 H (0.3-1.2) mg/dL AST 168 H 147 H (0-34) U/L ALT 69 H 56 H (10-49) U/L Alkaline Phosphatase 104 83 D (46-116) U/L Albumin 4.2 3.8 (3.5-5.0) gm/dL Urine 01/18/25 Range/Units 03:30 Urine Color Yellow (Lt Yel-Yel) Urine Clarity Clear (Clear/Hazy) Urine pH 7.0 (5.0-7.0) Ur Specific [place] 1.021 (1.001-1.035) Urine Protein 2+ A (Neg - Trace) Urine Glucose (UA) Negative (Negative) Quality Measures Quality Measures none Medications Home Medications and Allergies Home Medications ?Medication ?Instructions ?Recorded ?Confirmed ?Type cetirizine 10 mg tablet 10 mg PO QDAY 01/31/24 01/18/25 History risperidone 2 mg tablet 2 mg PO QPM 01/31/24 01/18/25 History trazodone 100 mg tablet 100 mg PO QDAY 01/31/24 01/18/25 History Allergies Allergy/AdvReac Type Severity Reaction Status Date / Time No Known Allergies Allergy Verified 07/02/23 16:20 Visit Medications Acetaminophen (Acetaminophen 325 Mg Tablet) 650 mg PO Q6H PRN PRN Reason: Fever >100.3 or pain 1-3 Stop: 02/17/25 00:31 Folic Acid (Folic Acid 1 Mg Tablet) 1 mg PO BID NA Stop: 01/23/25 08:59 Last Admin: 01/18/25 08:03 Dose: 1 mg Octreotide Acetate 1,000 mcg/ (Sodium Chloride) 102 mls @ 5.1 mls/hr IV .Q20H NA; Protocol Stop: 01/18/25 18:44 Last Admin: 01/17/25 23:43 Dose: 50 mcg/hr, 5.1 mls/hr Octreotide Acetate 1,000 mcg/ (Sodium Chloride) 102 mls @ 5.1 mls/hr IV .Q20H NA; Protocol Stop: 01/22/25 22:35 Lorazepam (Lorazepam 0.5 Mg Tablet) 0.5 mg PO Q4HR PRN PRN Reason: CIWA Score 2-6 Stop: 01/23/25 00:41 Lorazepam (Lorazepam 2 Mg/Ml Vial) 1 mg IV Q2HR PRN PRN Reason: CIWA SCORE 14-19 Stop: 01/23/25 00:41 Lorazepam (Lorazepam 2 Mg/Ml Vial) 2 mg IV Q2HR PRN PRN Reason: CIWA SCORE 20-25 Stop: 01/23/25 00:41 Lorazepam (Lorazepam 2 Mg/Ml Vial) 0.5 mg IV Q2HR PRN PRN Reason: CIWA SCORE 7-13 Stop: 01/23/25 00:41 Ondansetron HCl (Ondansetron Inj 2 Mg/Ml Inj 2 Ml) 4 mg IV Q6H PRN; Protocol PRN Reason: NAUSEA OR VOMITING Stop: 02/17/25 00:31 Pantoprazole Sodium (Pantoprazole Inj 40 Mg Vial) 40 mg IVP Q12HR [facility] Stop: 02/17/25 08:59 Last Admin: 01/18/25 08:03 Dose: 40 mg Phenobarbital (Phenobarbital 32.4 Mg Tablet) 64.8 mg PO TID NA Stop: 02/01/25 05:59 Last Admin: 01/18/25 14:00 Dose: 64.8 mg Sennosides (Senna Tablet) 1 tab PO QDAY PRN; Protocol PRN Reason: constipation Stop: 02/17/25 00:31 Thiamine HCl (Thiamine 100 Mg Tablet) 100 mg PO BID [facility] Stop: 01/23/25 08:59 Last Admin: 01/18/25 08:03 Dose: 100 mg Discontinued Medications Phenobarbital Sodium 130 mg/ (Sodium Chloride 12 ml) 0 mg IVP X1 ONE Stop: 01/17/25 22:19 Last Admin: 01/17/25 22:26 Dose: 130 mg Phenobarbital Sodium 130 mg/ (Sodium Chloride 12 ml) 0 mg IVP X1 ONE Stop: 01/17/25 22:35 Last Admin: 01/17/25 22:52 Dose: 130 mg Lactated Ringer's (Lactated Ringers) 1,000 mls @ 1,000 mls/hr IV Q1H [facility] Stop: 01/18/25 00:29 Last Admin: 01/17/25 23:14 Dose: 1,000 mls/hr Octreotide Acetate 1,000 mcg/ (Sodium Chloride) 102 mls @ 5.1 mls/hr IV .Q20H [facility]; Protocol Stop: 01/22/25 22:35 Pantoprazole Sodium (Protonix/Ns 80mg Iv Premix) 80 mg in 100 mls @ 10 mls/hr IV X1 ONE Stop: 01/18/25 08:35 Last Admin: 01/17/25 23:41 Dose: 10 mls/hr Magnesium Sulfate (Magnesium Sulfate Ivpb) 4 gm in 50 mls @ 12.5 mls/hr IV X1 ONE Stop: 01/18/25 03:48 Last Admin: 01/18/25 00:31 Dose: 12.5 mls/hr Potassium Chloride (Kcl Ivpb) 10 meq in 100 mls @ 100 mls/hr IV Q1H NA Stop: 01/18/25 01:48 Last Admin: 01/18/25 02:34 Dose: 100 mls/hr Thiamine HCl 100 mg/ Sodium (Chloride) 51 mls @ 102 mls/hr IV X1 STA Stop: 01/18/25 01:08 Last Admin: 01/18/25 02:37 Dose: 102 mls/hr Dextrose/Sodium Chloride (D5-Ns) 1,000 mls @ 100 mls/hr IV .Q10H ONE Stop: 01/18/25 10:59 Last Admin: 01/18/25 03:39 Dose: 100 mls/hr Magnesium Sulfate (Magnesium Sulfate Ivpb) 4 gm in 50 mls @ 12.5 mls/hr IV X1 ONE Stop: 01/18/25 04:52 Last Admin: 01/18/25 03:41 Dose: Not Given Lorazepam (Lorazepam 2 Mg/Ml Vial) 0.5 mg IV Q2HR PRN PRN Reason: CIWA SCORE 7-13 Stop: 01/23/25 00:41 Last Admin: 01/18/25 08:15 Dose: 0.5 mg Octreotide Acetate (Octreotide Acet Inj 50 Mcg/Ml Vial) 50 mcg IV X1 ONE Stop: 01/17/25 22:35 Last Admin: 01/17/25 23:44 Dose: 50 mcg Ondansetron HCl (Ondansetron Inj 2 Mg/Ml Inj 2 Ml) 4 mg IV X1 ONE; Protocol Stop: 01/17/25 22:31 Last Admin: 01/17/25 22:37 Dose: 4 mg Pantoprazole Sodium (Pantoprazole Inj 40 Mg Vial) 80 mg IVP X1 ONE Stop: 01/17/25 22:35 Last Admin: 01/17/25 22:54 Dose: 80 mg Potassium Phos/Sodium Phos (Naph,[facility] Mbdb 1 Packet (1.5 Gm)) 1 packet PO X1 ONE Stop: 01/18/25 00:54 Last Admin: 01/18/25 03:17 Dose: 1 packet Assessment & Plan Plan Summary: The patient is a 34-year-old male with a past medical history of hypertension, depression, anxiety, alcohol abuse reported withdrawal seizures who presented to the ED on 01/17/2025 after he was noted to have had a series of seizures. Admitted for management of seizures. #History of seizure disorder #Withdrawal seizures #Alcohol abuse Per mother, the patient has been drinking alcohol every day since she was 16 years old, about 4 beer cans daily. About a year ago he started having seizures, which are far and few between initially but the frequency has increased in the last couple months and he has been having seizures almost every month. She describes each episode of seizure to last about 30 seconds, associated with eyes rolling and shaking with no spontaneous urination but with presence of postictal paralysis and amnesia. On this episode, the mother reports that he was sitting on the chair when he screamed and had another similar episode which lasted about 20 seconds, seem to avoid in the reinitiated, she reports that he had about 5 episodes in 2 minutes. Patient denies any seizure medications however being referred to a neurologist. Given IV phenobarbital on admission. Plan: -Continue CIWA protocol -Continue IV phenobarbital -Ativan for breakthrough seizures -MRI brain with contrast -EEG #History of depression and anxiety with likely psychotic features Patient is on risperidone and trazodone at home, has been having auditory hallucinations. Plan: -Complete med recs #Upper GI bleed #Possible liver cirrhosis #Pancytopenia #Hyperbilirubinemia -Management per primary team Case was discussed with attending physician, Dr Susannah Pham MD PGY-1 Disclaimer: This note was dictated by speech recognition. Minor errors in pasteuriser operator may be present due to voice recognition software. Attending Provider Attestation/Addendum I personally have seen and examined the patient at the bedside and I agree with resident's findings, assessment and plan of care. Follow-up with EEG.
[2025-01-18] MEDS: OCTREOTIDE ACET INJ 1,000 MCG in SODIUM CHLORIDE 0.9% 100 ML 5.1 MCG IV (17:45)
--- NOTE | 2025-01-18 20:24 | SUR.PHASEI ---
Pt. arrived to recovery, eyes open, responds to verbal commands, AAOx2, VSS, lung sounds clear, equal expansion que., pt. receiving 4 liters 02 via NC, bright red blood noted to pt.'s mouth and lips, bruising to right side of neck and que. arms. Report received from Mariajose FAGAN.
--- NOTE | 2025-01-18 20:49 | SUR.PHASEI ---
Called and gave report on pt. s/p procedure to Swathi FAGAN on telemetry unit.
--- NOTE | 2025-01-18 20:54 | SUR.PHASEI ---
Pt. transferred to room 279 via gurney by staff, VSS, no c/o pain or nausea at this time, pt. has small amount of blood stained on teeth and lips, IVs flushed and patent, Swathi FAGAN assumed care of pt.
[2025-01-18 23:36] LABS: Basophils % (Auto) 1 % (0-2.5); Eosinophils % (Auto) 1 % (0-10); Hematocrit 35.5 % (41.0-53.0); Hemoglobin 12.1 g/dL (13.5-16.0); Immature Granulocytes % (Auto) 1 % (0-0); Immature Granulocytes Auto 0.02 Thou/mm3 (0.00-0.00); Lymphocytes # (Auto) 0.7 Thou/mm3 (1.0-4.8); Lymphocytes % (Auto) 22 % (10-50); Mean Corpuscular HGB Conc 34.1 g/dl (31.0-37.0); Mean Corpuscular Hemoglobin 30.6 pg (25.0-35.0); Mean Corpuscular Volume 90 fL (80-100); Monocytes # (Auto) 0.4 Thou/mm3 (0.0-0.8); Monocytes % (Auto) 12 % (0-12); Neutrophils # (Auto) 1.9 Thou/mm3 (1.8-7.7); Neutrophils % (Auto) 63 % (37-80); Nucleated Red Blood Cell % 0 /100 WBC (0); RDW Standard Deviation 43.7 fL (35.1-43.9); Red Blood Count 3.96 Miln/mm3 (4.50-5.90); White Blood Count 3.1 Thou/mm3 (3.8-10.6)
[2025-01-18 23:47] LABS: Platelet Count 45 Thou/mm3 (140-440)
[2025-01-18 23:48] LABS: Slide Review Platelets confirmed
[2025-01-19] VITALS (7 sets, daily range): BP systolic 120–152; BP diastolic 78–100; PULSE 70–125; RESP 16–95; TEMP 36.1–36.3; O2SAT 94–98; BMI 23.3; BMI 23.2
[2025-01-19] MEDS: LORazepam 2 MG/ML VIAL 1 MG IV (00:57)
[2025-01-19] MEDS: QUEtiapine FUMARATE 25 MG TABLET PO (02:02)
[2025-01-19 02:17] LABS: Base Excess 4 (-3-3); HCO3 28 mEq/L (20-26); Inspired Oxygen, FIO2 21 %; O2 Saturation 97 % (91-98); PCO2 37 mmHg (32.0-48.0); PO2 77 mmHg (83-108); pH, Arterial 7.48 (7.35-7.45)
[2025-01-19 02:18] LABS: Allen Test Performed/OK; Puncture Site Right Radial
[2025-01-19] MEDS: LORazepam 2 MG/ML VIAL IV ×4 (02:54→20:12)
--- NOTE | 2025-01-19 03:29 | PC.NURSE ---
lisette espino called on pt due to removing IV and walking down hallway while bleeding, pt attempted to go into another patients room. PT was escorted back to room where approved Ativan 2mg IV push, and was placed on soft bilat restraints.
[2025-01-19] MEDS: LORazepam 2 MG/ML VIAL IVP ×2 (03:57→05:32)
[2025-01-19 05:46] LABS: Basophils % (Auto) 1 % (0-2.5); Eosinophils % (Auto) 1 % (0-10); Hemoglobin 12.5 g/dL (13.5-16.0); Immature Granulocytes % (Auto) 0 % (0-0); Immature Granulocytes Auto 0.01 Thou/mm3 (0.00-0.00); Lymphocytes % (Auto) 29 % (10-50); Mean Corpuscular HGB Conc 33.8 g/dl (31.0-37.0); Mean Corpuscular Hemoglobin 30.6 pg (25.0-35.0); Mean Corpuscular Volume 91 fL (80-100); Monocytes # (Auto) 0.4 Thou/mm3 (0.0-0.8); Monocytes % (Auto) 12 % (0-12); Neutrophils % (Auto) 57 % (37-80); Nucleated Red Blood Cell % 0 /100 WBC (0); RDW Standard Deviation 44.1 fL (35.1-43.9); Red Blood Count 4.08 Miln/mm3 (4.50-5.90); White Blood Count 3.6 Thou/mm3 (3.8-10.6)
[2025-01-19 05:47] LABS: Platelet Count 45 Thou/mm3 (140-440)
[2025-01-19 05:50] LABS: Slide Review Platelets confirmed
[2025-01-19 05:52] LABS: INR 1.2 (0.9-1.3); Partial Thromboplastin Time 29.6 Seconds (22.0-36.0); Prothrombin Time 13.3 Seconds (9.0-12.2)
[2025-01-19 06:18] LABS: Alanine Aminotransferase 50 U/L (10-49); Albumin/Globulin Ratio 1.1 (1.2-2.2); Alkaline Phosphatase 94 U/L (46-116); Anion Gap 15 (7-16); Aspartate Amino Transferase 151 U/L (0-34); BUN/Creatinine Ratio 14 Ratio (12-20); Bilirubin,Total 2.2 mg/dL (0.3-1.2); Blood Urea Nitrogen 10 mg/dL (9-23); Calcium 9.1 mg/dL (8.3-10.6); Calcium (Corrected) 9.1 mg/dL (8.5-10.1); Carbon Dioxide 24.5 mMol/L (20.0-31.0); Chloride 96 mMol/L (98-107); Creatinine (Component) 0.7 mg/dL (0.6-1.3); Estimated Creatinine Clearance 152.1 mL/min (>60); Globulin 3.8 gm/dL (2.3-3.5); Glucose 112 mg/dL (74-106); Magnesium 1.3 mg/dL (1.6-2.6); Osmolality,Calculated 270 (275-295); Phosphorous 2.5 mg/dL (2.4-5.1); Potassium 3.6 mMol/L (3.4-5.1); Sodium 135 mMol/L (136-145); Total Protein 7.8 gm/dL (5.7-8.2); eGFR > 60 See Note
--- NOTE | 2025-01-19 09:04 | PC.SS ---
Follow up note: Pt on restraints. On CWAL protocol. Pt will return home upon dc.
[2025-01-19] MEDS: PANTOPRAZOLE INJ 40 MG VIAL IVP ×2 (09:06→20:12)
[2025-01-19] MEDS: Magnesium Sulfate 2 GM Ivpb 2 GM/50 ML BAG IV (09:07)
--- NOTE | 2025-01-19 10:53 | ESPR_ITS ---
<Statement entered by Jonathan Carty MD - 01/28/25 15:11> I reviewed above note and agree with findings and plans. I have also personally examined the patient with medicine team and went over assessment and plan with medical team including analysis intern and resident physician. <Statement entered by Damian Givens MD - 01/19/25 14:19> I discussed with and supervised the analysis intern physician involved in the care of this patient. Patient assessment and plan was discussed with entire medicine team, including my attending. I agree with the assessment and plan as documented by analysis intern doctor. Patient care was discussed with my attending physician Dr. Carloz Givens, PGY-2 Documentation for date of: 01/19/25 Subjective Subjective Interval history: Patient examined at bedside. Overnight there was a code espino. Patient was agitated and trying to leave AMA. He attempted to remove restraints and ended biting his cheek moving a small piece of flash with bleeding of his mouth. Patient was given quetiapine 25 mg and total of 6 mg lorazepam was able to calm the patient. Morning additional grade code was called for same reason of agitation. CIWA was 23 and patient was given lorazepam 2 mg x 1 was able to calm down patient. He is status post 1 unit platelet transfusion with improvement in platelets to 45. Magnesium was repleted. Labs reflect synthetic liver dysfunction. Vladislav up trended to 0.2, AST 51, ALT 50, pt 13.3 Hb is stable EGD with Dr. Miguel showed oropharyngeal bleeding with esophageal varices, diffuse oozing bleeding through stomach bod. EEG by neuro was completed yesterdya, MRI head pending Will continue with CIWA and octrotide drip for antoher 3 days, clear liquid diet, IV Protonix. Exam Vital Signs Temp Pulse Resp BP Pulse Ox O2 Del Method O2 Flow Rate 97.0 F 111 H 16 123/99 H 95 Nasal Cannula 2 01/19/25 08:00 01/19/25 08:00 01/19/25 08:00 01/19/25 08:00 01/19/25 08:00 01/19/25 08:00 01/19/25 04:00 Narrative Exam General: young male, sleeping, dried blood on face, agitated when awake HEENT: Normocephalic, atraumatic, mouth has dried blood on gums and lips, bleeding from mouth Heart: Regular rate and rhythm, no murmurs. Lungs: Unable to assess Abdomen: Unable to assess, patient did not want to be touched Neurologic: Difficult to assess orientation, no gross neurological deficit, and patient able to move all 4 extremities. Extremities: No edema. Skin: No rash, ecchomyses on right arm Objective Labs 01/19/25 04:48 01/19/25 04:48 Labs: Laboratory Results - last 24 hr 01/17/25 01/18/25 01/19/25 22:53 22:52 02:11 WBC 3.1 L RBC 3.96 L Hgb 12.1 L Hct 35.5 L MCV 90 MCH 30.6 MCHC 34.1 RDW Std Deviation 43.7 Plt Count 45 L D Neut % (Auto) 63 Lymph % (Auto) 22 [place] % (Auto) 12 Eos % (Auto) 1 Baso % (Auto) 1 Neut # (Auto) 1.9 Lymph # (Auto) 0.7 L [place] # (Auto) 0.4 Eos # (Auto) 0.0 Baso # (Auto) 0.0 Immature Gran # (Auto) 0.02 H Absolute Nucleated RBC 0.00 Immature Gran % 1 H Nucleated RBC % 0 PT INR APTT Puncture Site Right Radial ABG pH 7.48 H ABG pCO2 37 ABG pO2 77 L ABG HCO3 28 H ABG O2 Saturation 97 ABG Base Excess 4 H FiO2 21 Sodium Potassium Chloride Carbon Dioxide Anion Gap BUN Creatinine Estim Creat Clear Calc eGFR BUN/Creatinine Ratio Glucose Calculated Osmolality Calcium Corrected Calcium Phosphorus Magnesium Total Bilirubin AST ALT Alkaline Phosphatase Total Protein Albumin Globulin Albumin/Globulin Ratio Misc Test Result Platelets confirmed Blood Type O Positive Antibody Screen NEGATIVE Blood Bank Wristband ID Yes Blood Bank Comment PLATP Ready 01/19/25 04:48 WBC 3.6 L RBC 4.08 L Hgb 12.5 L Hct 37.0 L MCV 91 MCH 30.6 MCHC 33.8 RDW Std Deviation 44.1 H Plt Count 45 L Neut % (Auto) 57 Lymph % (Auto) 29 [place] % (Auto) 12 Eos % (Auto) 1 Baso % (Auto) 1 Neut # (Auto) 2.0 Lymph # (Auto) 1.0 [place] # (Auto) 0.4 Eos # (Auto) 0.0 Baso # (Auto) 0.0 Immature Gran # (Auto) 0.01 H Absolute Nucleated RBC 0.00 Immature Gran % 0 Nucleated RBC % 0 PT 13.3 H INR 1.2 APTT 29.6 Puncture Site ABG pH ABG pCO2 ABG pO2 ABG HCO3 ABG O2 Saturation ABG Base Excess FiO2 Sodium 135 L Potassium 3.6 D Chloride 96 L Carbon Dioxide 24.5 Anion Gap 15 BUN 10 Creatinine 0.7 Estim Creat Clear Calc 152.1 eGFR > 60 BUN/Creatinine Ratio 14 Glucose 112 H D Calculated Osmolality 270 L Calcium 9.1 Corrected Calcium 9.1 Phosphorus 2.5 Magnesium 1.3 L Total Bilirubin 2.2 H AST 151 H ALT 50 H Alkaline Phosphatase 94 Total Protein 7.8 Albumin 4.0 Globulin 3.8 H Albumin/Globulin Ratio 1.1 L Misc Test Result Platelets confirmed Blood Type Antibody Screen Blood Bank Wristband ID Blood Bank Comment ABG Interpretation ABG results: 01/19/25 02:11 ABG pH 7.48 H ABG pCO2 37 ABG pO2 77 L ABG HCO3 28 H ABG O2 Saturation 97 ABG Base Excess 4 H Quality Measures Quality Measures none Assessment & Plan Assessment Current Active Medications: Generic Name Dose Route Start Last Admin Trade Name Freq PRN Reason Stop Dose Admin Acetaminophen 650 mg 01/18/25 00:32 Acetaminophen 325 Mg Tablet PO 02/17/25 00:31 Q6H PRN Fever >100.3 or pain 1-3 Folic Acid 1 mg 01/18/25 09:00 01/19/25 09:33 Folic Acid 1 Mg Tablet PO 01/23/25 08:59 Not Given BID NA Octreotide Acetate 1,000 mcg/ 102 mls @ 5.1 mls/hr 01/18/25 18:45 01/18/25 17:45 Sodium Chloride IV 01/22/25 22:35 50 mcg/hr .Q20H NA 5.1 mls/hr Administration Protocol 50 MCG/HR Lorazepam 0.5 mg 01/18/25 00:42 Lorazepam 0.5 Mg Tablet PO 01/23/25 00:41 Q4HR PRN CIWA Score 2-6 Lorazepam 1 mg 01/18/25 00:42 01/19/25 00:57 Lorazepam 2 Mg/Ml Vial IV 01/23/25 00:41 1 mg Q2HR PRN Administration CIWA SCORE 14-19 Lorazepam 2 mg 01/18/25 00:42 01/19/25 09:16 Lorazepam 2 Mg/Ml Vial IV 01/23/25 00:41 2 mg Q2HR PRN Administration CIWA SCORE 20-25 Lorazepam 0.5 mg 01/18/25 10:07 01/18/25 21:29 Lorazepam 2 Mg/Ml Vial IV 01/23/25 00:41 0.5 mg Q2HR PRN Administration CIWA SCORE 7-13 Ondansetron HCl 4 mg 01/18/25 00:32 Ondansetron Inj 2 Mg/Ml Inj 2 Ml IV 02/17/25 00:31 Q6H PRN NAUSEA OR VOMITING Protocol Pantoprazole Sodium 40 mg 01/18/25 09:00 01/19/25 09:06 Pantoprazole Inj 40 Mg Vial IVP 02/17/25 08:59 40 mg Q12HR NA Administration Phenobarbital 64.8 mg 01/18/25 06:00 01/19/25 05:44 Phenobarbital 32.4 Mg Tablet PO 02/01/25 05:59 Not Given TID NA Sennosides 1 tab 01/18/25 00:32 Senna Tablet PO 02/17/25 00:31 QDAY PRN constipation Protocol Thiamine HCl 100 mg 01/18/25 09:00 01/19/25 09:33 Thiamine 100 Mg Tablet PO 01/23/25 08:59 Not Given BID NA Plan Braden Shah is a 34-year-old male with previous medical history of alcohol abuse, anxiety, depression, hypertension, withdrawal seizures who presented to the ED after he had a series of seizures. In the ED he also had coffee ground emesis. Patient was admitted for withdrawal seizure and GI bleed management and treatment. #Alcohol withdrawal seizures #Alcohol use disorder #Alcohol withdrawal Patient has a longstanding history of alcohol use since 16 yrs old. Drank four 40z beers everyday or every other day. Has been trying to cut down to two a day. Started to have seizures a year ago but has never seen neurologist. His last drink was day before admission. Maddrey score 9.4--steroids not indicated. Plan: ? Telemetry ? Phenobarbital 64.8 mg 3 times daily p.o. (but currently NPO) -IV phenobarbital 40mg push x1 ordered prn ? Lorazepam as needed per CIWA protocol ? Seizure precautions ? Aspiration precautions ? Head of bed elevation 30 degrees ? Neurology consult ? director of women's services consult ?Thiamine 100 mg IV once, then start thiamine p.o. ? Folate p.o. ? D5/NS 100 mL/h after thiamine IV -EEG read pending ? MRI head with contrast pending #Upper GI bleed In the ED patient had coffee-ground emesis, GI specialist Dr. Miguel was consulted, recommended to start octreotide drip and pantoprazole. Hemoglobin is 12.7 on admission. EGD on01/[address] Miguel showed oropharyngeal bleeding with esophageal varices, diffuse oozing bleeding through stomach body. Plan: ? Octreotide drip for 3 more days ? Pantoprazole 40 mg daily -Clear liquid diet after n.p.o. ? GI consulted, appreciate recommendations #Decompensated liver disease Patient has WBC count of 2.9, RBC 4.17, hemoglobin 12.7, platelets 27. Could be in the setting of chronic alcohol abuse. In the setting of longstanding alcohol use there is a concern for liver cirrhosis. Received 1 units platelets in ED. Bilirubin uptrending, AST 151, ALT 50, platelets 45. Liver ultrasound shows hepatomegaly Plan: ? Monitor CBC -No Lasix or Aldactone at this time ? Patient to be discharged with propranolol and lactulose #Electrolyte abnormalities Plan: -Replete as needed #History of depression #History of anxiety Small he reports that sometimes he hears voices, he has been taking trazodone and risperidone at home. At the morning he denies hearing voices. Plan: -resume home meds trazodone 100 mg QPM -risperidone 2mg daily Health maintenance: Diet: NPO DVT prophylaxis: SCDs GI prophylaxis: pantoprazole 40 mg bid Dispo: telemetry, pending MRI head, EEG read CODE STATUS: Full code The patient's management plan was discussed with my attending physician Dr. Carty. Amee Riley/bethel, PGY-1
[2025-01-19] MEDS: OCTREOTIDE ACET INJ 1,000 MCG in SODIUM CHLORIDE 0.9% 100 ML 5.1 MCG IV (14:46)
--- NOTE | 2025-01-19 19:06 | ESPR_ITS ---
Documentation for date of: 01/19/25 Subjective Subjective Interval history: Patient evaluated endoscopy shows mucosal oozing of blood almost in the upper GI tract secondary to hypertensive portal gastropathy Patient on octreotide drip Exam Vital Signs Temp Pulse Resp BP Pulse Ox O2 Del Method O2 Flow Rate 97.1 F 81 17 121/86 H 94 L Nasal Cannula 2 01/19/25 12:00 01/19/25 16:00 01/19/25 12:00 01/19/25 12:00 01/19/25 12:00 01/19/25 12:00 01/19/25 12:00 Objective Labs 01/19/25 04:48 01/19/25 04:48 Labs: Laboratory Results - last 24 hr 01/18/25 01/19/25 01/19/25 22:52 02:11 04:48 WBC 3.1 L 3.6 L RBC 3.96 L 4.08 L Hgb 12.1 L 12.5 L Hct 35.5 L 37.0 L MCV 90 91 MCH 30.6 30.6 MCHC 34.1 33.8 RDW Std Deviation 43.7 44.1 H Plt Count 45 L D 45 L Neut % (Auto) 63 57 Lymph % (Auto) 22 29 [place] % (Auto) 12 12 Eos % (Auto) 1 1 Baso % (Auto) 1 1 Neut # (Auto) 1.9 2.0 Lymph # (Auto) 0.7 L 1.0 [place] # (Auto) 0.4 0.4 Eos # (Auto) 0.0 0.0 Baso # (Auto) 0.0 0.0 Immature Gran # (Auto) 0.02 H 0.01 H Absolute Nucleated RBC 0.00 0.00 Immature Gran % 1 H 0 Nucleated RBC % 0 0 PT 13.3 H INR 1.2 APTT 29.6 Puncture Site Right Radial ABG pH 7.48 H ABG pCO2 37 ABG pO2 77 L ABG HCO3 28 H ABG O2 Saturation 97 ABG Base Excess 4 H FiO2 21 Sodium 135 L Potassium 3.6 D Chloride 96 L Carbon Dioxide 24.5 Anion Gap 15 BUN 10 Creatinine 0.7 Estim Creat Clear Calc 152.1 eGFR > 60 BUN/Creatinine Ratio 14 Glucose 112 H D Calculated Osmolality 270 L Calcium 9.1 Corrected Calcium 9.1 Phosphorus 2.5 Magnesium 1.3 L Total Bilirubin 2.2 H AST 151 H ALT 50 H Alkaline Phosphatase 94 Total Protein 7.8 Albumin 4.0 Globulin 3.8 H Albumin/Globulin Ratio 1.1 L Misc Test Result Platelets confirmed Platelets confirmed Impressions Impression: # Hypertensive portal gastropathy # Mucosal oozing of blood Continue octreotide advance diet as tolerated ABG Interpretation ABG results: 01/19/25 02:11 ABG pH 7.48 H ABG pCO2 37 ABG pO2 77 L ABG HCO3 28 H ABG O2 Saturation 97 ABG Base Excess 4 H Assessment & Plan Time Spent With Patient Time: Total time spent is greater than 50% in coordination of care (as documented) at patient's floor/unit and/or counseling patient:
[2025-01-19] MEDS: THIAMINE 100 MG TABLET PO (20:11)
[2025-01-19] MEDS: FOLIC ACID 1 MG TABLET PO (20:11)
[2025-01-19] MEDS: LORazepam 0.5 MG TABLET PO (23:17)
--- NOTE | 2025-01-19 23:25 | ESPR_ITS ---
Documentation for date of: 01/19/25 Subjective Subjective Interval history: Patient was seen in telemetry today with his family at the bedside. No seizures reported after admission. Exam - Neurology Vital Signs Temp Pulse Resp BP Pulse Ox O2 Del Method O2 Flow Rate 97.3 F 100 18 124/100 H 96 Room Air 2 01/19/25 20:00 01/19/25 20:00 01/19/25 20:00 01/19/25 20:00 01/19/25 20:00 01/19/25 20:00 01/19/25 12:00 Narrative Exam GENERAL APPEARANCE: Well hydrated, well-nourished in no acute distress. HEENT: Normocephalic, atraumatic, extraocular movements intact. Pupils: Equal reacting to light and accommodation NECK: Supple, no JVD or bruits. CARDIOVASULAR: Heart: S1, S2 heard, regular without S3-S4 or murmur no rubs or gallops. LUNGS/CHEST: Clear to auscultation bilaterally. No rails, rhonchi, or wheezing. Normal inspection. ABDOMEN: Soft, nontender, with normal bowel sounds. No pulsatile masses. No rebound, rigidity, or guarding. Normal inspection and palpation. EXTREMITIES: Normal inspection and palpation. No edema, clubbing or cyanosis. SKIN: Warm and dry without rashes. Normal inspection. MUSCULOSKELETAL: No cervical, thoracic, lumbar or midline bony tenderness. Normal inspection. NEURO: Alert, awake and oriented x3. Cranial nerves: II through XII grossly intact. Speech and language: Normal with no dysarthria or dysphasia. Motor system: Tone and bulk: Normal: Strength: 5 out of 5 in all 4 extremities; No pronator drift noted. Deep tendon reflexes: 2+ bilaterally symmetrical. Plantar reflex: Downgoing bilaterally. Sensory system: Intact to all modalities of sensation bilaterally. Coordination: Intact to [id number] and [id number] test bilaterally. No ataxia, no dysmetria, or dysdiadochokinesia noted. No intention tremors noted. Gait: Not tested. No signs of meningeal irritation noted. PSYCHIATRIC: Normal mood and affect. Objective Labs 01/19/25 04:48 01/19/25 04:48 Labs: Laboratory Results - last 24 hr 01/18/25 01/19/25 01/19/25 22:52 02:11 04:48 WBC 3.1 L 3.6 L RBC 3.96 L 4.08 L Hgb 12.1 L 12.5 L Hct 35.5 L 37.0 L MCV 90 91 MCH 30.6 30.6 MCHC 34.1 33.8 RDW Std Deviation 43.7 44.1 H Plt Count 45 L D 45 L Neut % (Auto) 63 57 Lymph % (Auto) 22 29 [place] % (Auto) 12 12 Eos % (Auto) 1 1 Baso % (Auto) 1 1 Neut # (Auto) 1.9 2.0 Lymph # (Auto) 0.7 L 1.0 [place] # (Auto) 0.4 0.4 Eos # (Auto) 0.0 0.0 Baso # (Auto) 0.0 0.0 Immature Gran # (Auto) 0.02 H 0.01 H Absolute Nucleated RBC 0.00 0.00 Immature Gran % 1 H 0 Nucleated RBC % 0 0 PT 13.3 H INR 1.2 APTT 29.6 Puncture Site Right Radial ABG pH 7.48 H ABG pCO2 37 ABG pO2 77 L ABG HCO3 28 H ABG O2 Saturation 97 ABG Base Excess 4 H FiO2 21 Sodium 135 L Potassium 3.6 D Chloride 96 L Carbon Dioxide 24.5 Anion Gap 15 BUN 10 Creatinine 0.7 Estim Creat Clear Calc 152.1 eGFR > 60 BUN/Creatinine Ratio 14 Glucose 112 H D Calculated Osmolality 270 L Calcium 9.1 Corrected Calcium 9.1 Phosphorus 2.5 Magnesium 1.3 L Total Bilirubin 2.2 H AST 151 H ALT 50 H Alkaline Phosphatase 94 Total Protein 7.8 Albumin 4.0 Globulin 3.8 H Albumin/Globulin Ratio 1.1 L Misc Test Result Platelets confirmed Platelets confirmed ABG Interpretation ABG results: 01/19/25 02:11 ABG pH 7.48 H ABG pCO2 37 ABG pO2 77 L ABG HCO3 28 H ABG O2 Saturation 97 ABG Base Excess 4 H Assessment & Plan Assessment and plan (1) Alcohol withdrawal seizure: Status: Acute Assessment and plan: No seizures reported after admission. Follow-up with EEG. Continue with the DT prevention protocol
[2025-01-20] VITALS: BP 126/99; PULSE 82; RESP 22; TEMP 36.9; O2SAT 95
[2025-01-20] MEDS: LORazepam 2 MG/ML VIAL 1 MG IV (01:35)
[2025-01-20 04:00] VITALS: BP 134/89; PULSE 78; RESP 22; TEMP 36.9; O2SAT 96
[2025-01-20] MEDS: LORazepam 0.5 MG TABLET PO (05:46)
[2025-01-20 05:50] VITALS: BMI 23.2
[2025-01-20 06:31] LABS: Basophils % (Auto) 1 % (0-2.5); Eosinophils % (Auto) 1 % (0-10); Hemoglobin 11.3 g/dL (13.5-16.0); Immature Granulocytes % (Auto) 0 % (0-0); Immature Granulocytes Auto 0.01 Thou/mm3 (0.00-0.00); Lymphocytes # (Auto) 0.6 Thou/mm3 (1.0-4.8); Lymphocytes % (Auto) 25 % (10-50); Mean Corpuscular HGB Conc 33.2 g/dl (31.0-37.0); Mean Corpuscular Hemoglobin 30.4 pg (25.0-35.0); Mean Corpuscular Volume 91 fL (80-100); Monocytes # (Auto) 0.3 Thou/mm3 (0.0-0.8); Monocytes % (Auto) 13 % (0-12); Neutrophils # (Auto) 1.4 Thou/mm3 (1.8-7.7); Neutrophils % (Auto) 59 % (37-80); Nucleated Red Blood Cell % 0 /100 WBC (0); RDW Standard Deviation 45.2 fL (35.1-43.9); Red Blood Count 3.72 Miln/mm3 (4.50-5.90)
[2025-01-20 06:40] LABS: INR 1.1 (0.9-1.3); Partial Thromboplastin Time 29.1 Seconds (22.0-36.0); Prothrombin Time 12.4 Seconds (9.0-12.2)
[2025-01-20 06:41] LABS: Platelet Count 53 Thou/mm3 (140-440)
[2025-01-20 06:42] LABS: White Blood Count 2.3 Thou/mm3 (3.8-10.6)
[2025-01-20 06:50] LABS: Alanine Aminotransferase 46 U/L (10-49); Albumin, Serum 3.8 gm/dL (3.5-5.0); Albumin/Globulin Ratio 1.1 (1.2-2.2); Alkaline Phosphatase 81 U/L (46-116); Anion Gap 9 (7-16); Aspartate Amino Transferase 118 U/L (0-34); BUN/Creatinine Ratio 17 Ratio (12-20); Bilirubin,Total 1.8 mg/dL (0.3-1.2); Blood Urea Nitrogen 12 mg/dL (9-23); Calcium 8.8 mg/dL (8.3-10.6); Carbon Dioxide 28.1 mMol/L (20.0-31.0); Chloride 98 mMol/L (98-107); Creatinine (Component) 0.7 mg/dL (0.6-1.3); Estimated Creatinine Clearance 152.1 mL/min (>60); Globulin 3.4 gm/dL (2.3-3.5); Glucose 168 mg/dL (74-106); Magnesium 1.6 mg/dL (1.6-2.6); Osmolality,Calculated 273 (275-295); Phosphorous 3.2 mg/dL (2.4-5.1); Potassium 3.4 mMol/L (3.4-5.1); Sodium 135 mMol/L (136-145); Total Protein 7.2 gm/dL (5.7-8.2); eGFR > 60 See Note
[2025-01-20 07:09] LABS: Slide Review Platelets confirmed
[2025-01-20] MEDS: LORazepam 2 MG/ML VIAL IV (07:50)
[2025-01-20] MEDS: THIAMINE 100 MG TABLET PO (07:56)
[2025-01-20] MEDS: FOLIC ACID 1 MG TABLET PO (07:56)
[2025-01-20 08:00] VITALS: BP 120/89; PULSE 120; PULSE 83; RESP 12; TEMP 36.7; O2SAT 98
[2025-01-20] MEDS: PANTOPRAZOLE INJ 40 MG VIAL IVP (08:22)
[2025-01-20] MEDS: POTASSIUM CHLORIDE 20 mEq TABCR 40 MEQ PO (08:22)
--- NOTE | 2025-01-20 10:00 | ESDS_ITS ---
Planned Discharge Date 01/20/25 DS: Providers Provider Date of admission: 01/18/25 00:33 Primary care physician: Physician No Primary/Family Admitting Provider: Matt Doss MD Attending Provider on Admission: Jonathan Carty MD Consults: 01/17/25 22:38 Consult to Gastroenterology Stat Comment: Consulting Provider: Ahmet Miguel 01/18/25 01:03 Consult to Neurology / Tele-Neurology Stat Comment: Seizures Consulting Provider: Kal Davalos Attending Provider on DC: Matt Tucker MD Discharging Provider: Matt Tucker MD DS: Diagnosis Problem List Completed Was Problem List Reviewed/Reconciled?: Yes Hospital Course Hospital Course Hospital course: Braden Shah is 34 yr male with PMH of alcohol use disorder since 16, alcohol withdrawl siezures, anxiety, bipolar disorder who presented to [facility] ED on 01/18/25 due to siezure and coffee ground emesis. Patient was admitted for management of alcohol withdrawl and workup of upper GI bleed. His mother was at the bedside who witnessed the seizures. She stated that he was sitting on the sofa, started having jerking movements of extremities that lasted for approximately 15 to 20 seconds, screamed and had another episode with eyes rolling and shaking that lasted 10-15 sec. There were a total of 5 episodes in approximately 1 minute. Patient was confused but came back to his baseline. Mother denies that the patient hit his head. His last alcohol drink was day before admission. He usually drinks alcohol every day--about 4 40oz cans. Patient stated he is trying to cut down to 2 40oz cans. He started to have seizures approximately a year ago, and his mother noticed that the frequency of the seizures have started to increase, now seizures happen every month. Patient himself does not remember seizures, denies auras, he only remembers EMS arriving. He also reports feeling nauseous and vomiting, reports brown-red vomitus. Labs reflected decompensated liver disease with thrombocytopenia 25, AST 168, ALT 69, PT 12.6, INR 1.2 (on admission). He received 1 unit platelets with improvement to 53. Liver ultrasound was negative for cholelithiasis, findings positive for hepatomegaly and primary hepatocellular disease, no focal liver lesions. GI Dr. Miguel and neurology Dr. Davalos were consulted. EGD completed on 01/18 showed oropharyngeal bleeding with esophageal varices, diffuse oozing bleeding through stomach body. EEG on 01/20 could not be interpreted due to electrical artifact. During hospitalization, patient was started on CIWA, octreotide drip to be completed for 5 days, and started on pantoprazole 40 mg daily. Their were multiple code anne-marie due to agitation and attempts to leave AMA. Family and patient were counseled on risks & benefits of leaving before medical froy arance/discharge. The patient had the opportunity to ask questions about their condition which were answered to their satisfaction. The patient has decided to sign out against medical advice (AMA). He is aware that they may return for further care at any time as needed. Patient was alert and oriented x4 with ability to demonstrate understanding of the above and signed the AMA form. Further recommendations were given as below. Recommendations: Continue taking pantoprazole 40 mg once a day. Start taking propranolol 10 mg three times a day to prevent esophageal bleeding. Follow up with GI doctor in 1-2 weeks. Follow up with neurology in 1-2 weeks. You will need to have EEG repeated. Follow up with your PCP in 1-2 weeks. If you don not have a PCP, call [facility] in [place] at [phone]. Please refrain from drinking. ancillary services manager therapy are availalbe for counseling. Return to ED if symptoms return. Hospital Diagnoses: #Alcohol withdrawal seizures #Alcohol use disorder #Alcohol withdrawal #Upper GI bleed #Decompensated liver disease #Electrolyte abnormalities #History of depression #History of anxiety Patient plan of care was discussed with the attending physician, Dr. Tucker. Amee Marks, PGY-1 Time Spent with Patient Time attestation: Total time spent providing and/or coordinating discharge services: Time spent: Greater than 30 minutes Exam Vital Signs Temp Pulse Resp BP Pulse Ox O2 Del Method O2 Flow Rate 98.4 F 78 22 H 134/89 H 96 Room Air 2 01/20/25 04:00 01/20/25 04:00 01/20/25 04:00 01/20/25 04:00 01/20/25 04:00 01/20/25 04:01/19/25 12:00 Narrative Exam General: young male, dried blood on face, agitated HEENT: Normocephalic, atraumatic, mouth has dried blood on gums and lips Heart: Regular rate and rhythm, no murmurs. Lungs: Unable to assess Abdomen: Unable to assess, patient did not want to be touched Neurologic: AOx3, no gross neurological deficit, and patient able to move all 4 extremities. Extremities: No edema. Skin: No rash, ecchomyses on right arm Discharge Plan Plan Patient Disposition: Left Against Medical Advice Health Concerns: Patient is at high risk of re-bleeding and reoccurring seizures. He was to complete another two days of octreotide drip and have MRI of head done. Prescriptions/Referrals Prescriptions/Med Rec: New pantoprazole 40 mg tablet,delayed release (DR/EC) 40 mg PO QDAY Qty: 30 1RF propranolol 10 mg tablet 10 mg PO TID 30 Days Qty: 90 0RF Continued cetirizine 10 mg Tablet 10 mg PO QDAY risperidone 2 mg tablet 2 mg PO QPM Patient Comments: TAKE 1 TABLET BY MOUTH EVERYDAY AT BEDTIME trazodone 100 mg Tablet 100 mg PO QDAY Referrals: Ahmet Miguel MD [Physician] - No Primary/Family,Physician [Primary Care Provider] - Kal Davalos MD [Physician] - Patient/Caregiver Discharge Instructions Other Discharge Activity Instructions:: Continue taking pantoprazole 40 mg once a day. Start taking propranolol 10 mg three times a day to prevent esophageal bleeding. Follow up with GI doctor in 1-2 weeks. Follow up with your PCP in 1-2 weeks. If you don not have a PCP, call [facility] in [place] at [phone]. Please refrain from drinking. Return to ED if symptoms return. Education Materials: Alcohol Withdrawal: What to Expect, ED Cirrhosis Print Language: Kinyarwanda Quality Discharge Quality Measures VTE prophylaxis MD Attestestation MD Attestation I reviewed labs, imaging, EKG, home medications and prior available records. Face to face evaluation was performed by me. I have personally examined the patient and discussed assessment and plan with the IM team. I reviewed the resident note and agree with the plan with exceptions as below. Alcohol abuse Alcohol withdrawal Upper GI bleed Pancytopenia Patient left the hospital AGAINST MEDICAL ADVICE He does have the capacity to leave and he signed the papers Continue thiamine folic acid Did not want to stay to finish octreotide Continue p.o. Protonix Start propranolol 10 mg 3 times daily Monitor CBC as outpatient Avoid alcohol use Outpatient follow-up with GI Time spent is 40 minutes. More than 50% of the time was spent on patient education and coordination of care.
--- NOTE | 2025-01-20 10:46 | PC.NURSE ---
0748- patient is trying to get out of bed wants to go home now, called his mother to come and stay with patient, lisette espino was called at this time. lorazepam 2mg iv was given , called and made aware, Dr. Marks came and talked to patient,0824- patient decided to sign ama paper, mother is at bedside . mother wants to take him home now, is aware.
== END 2025-01-20 08:24 | disposition left against medical advice (07) ==
LOC: SERX 01-18 → SERHOLD 01-18 01:06 → S2NX 01-18 04:10
PROVIDERS: Specialist; Student in an Organized Health Care Education/Training Program; Admitting Provider Student in an Organized Health Care Education/Training Program; Emergency Provider Emergency Medicine; Visit Provider Internal Medicine
PROC: 0DJ08ZZ Inspection of Upper Intestinal Tract, Via Natural or Artificial Opening Endoscopic (ICD-10-PCS; CPT 43239; principal; 2025-01-18 20:00)
DX: K76.6 Portal hypertension (principal); F10.231 Alcohol dependence with withdrawal delirium; I85.11 Secondary esophageal varices with bleeding; F41.9 Anxiety disorder, unspecified; I10 Essential (primary) hypertension; G40.509 Epileptic seizures related to external causes, not intractable, without status epilepticus; K72.10 Chronic hepatic failure without coma; D61.818 Other pancytopenia; E83.42 Hypomagnesemia; D69.59 Other secondary thrombocytopenia; E83.39 Other disorders of phosphorus metabolism; F31.9 Bipolar disorder, unspecified; K31.89 Other diseases of stomach and duodenum; R44.0 Auditory hallucinations; Z56.0 Unemployment, unspecified; Z79.899 Other long term (current) drug therapy; Z53.29 Procedure and treatment not carried out because of patient's decision for other reasons
CPT/HCPCS: 36415; 36600; 71045; 76705; 80053; 81001; 82010; 82550; 82803; 83605; 83735; 84100; 85025; 85610; 85730; 86850; 86900; 86901; 86965; 87040; 87077; 87086; 87186; 93005; 95816; 96361; 96374; 96375; 99291; 99292; A4216; J1200; J2060; J2250; J2354; J2405; J2470; J2560; J3010; J3411; J3475; J3480; J3490; J7042; J7050; J7120; P9035; A9270

== ENCOUNTER 2025-02-18 18:39 | Inpatient (IN) | payer MEDICAID, SELFPAY ==
[2025-02-18 18:43] VITALS: PULSE 107; RESP 18; O2SAT 98; BMI 23.0
[2025-02-18 18:52] VITALS: BP 147/92; PULSE 88; RESP 19; O2SAT 95
--- NOTE | 2025-02-18 19:04 | PD.EDADULT ---
ED General RME/HPI General Chief complaint: Seizure Stated complaint: SEIZURE Time Seen by Provider: 02/18/25 18:45 Arrival date/time: 02/18/25 18:39 RME / HPI RME / HPI narrative: This patient is a 34-year-old male with history of hypertension, GI bleed/esophageal varices due to alcohol use disorder, recently diagnosed seizures who was brought by the EMS to the ED on 02/18/25 from home after seizure-like activity. He was seen by EMS as postictal 15-20 minutes and had a witnessed seizure-like activity lasting 15-20 mins per pts mother. he had atleast 3-4 seizures back to back. Patient did not recall any activity in denied having any headaches, dribbling of the urine or fecal incontinence. He only endorsed having dizziness and shakiness. He was recently started on seizure medication by primary care doctor which he follows at [facility]. EMS reported that patient had an episode of vomiting which had clear fluid no blood. Denied any chest pain, shortness of breath, extremity weakness, fever chills or any other complaints. While en route to the hospital patient was given oxygen and financial examiner was placed. Blood sugar was 144. Of note, patient was recently discharged in January 2025 after being managed with alcohol withdrawal seizures and was discharged on Protonix, cetirizine, risperidone, propranolol and trazodone. Vitals showed blood pressure 147/92, pulse 88, respiratory rate 19. He was saturating well on room air. EKG showed sinus rhythm. QTc 417. PMH: Hypertension, seizures, GI bleed, alcohol use disorder PSH: Nonsignificant SH: Drinks alcohol 1 beer every day. Last drink yesterday. Denies smoking or illicit drug use. Home medications: Losartan unknown dose, seizure medication unknown, Protonix, cetirizine, risperidone, propranolol and trazodone. Stat labs CBC, CMP, CK, magnesium, UA, U tox, blood alcohol, urine alcohol,coagulation panel with INR, type and screen, lactic acid 5.0 , VBG, BHB 0.8 were ordered.Labs revealed white count 2.6. Hemoglobin 10.7. Platelet count 51. We gave Protonix 40 mg IV x 1, banana bag x 1, magnesium 2 g x1, phenobarb 130 mg x 1, Zofran x 1 and IV fluid bolus. Will continue with neurochecks every 4 hourly, seizure precautions and aspiration precautions. MD complaint: Seizure-like activity Onset (ago): day(s) (1) Associated symptoms: malaise, nausea/vomiting and other (Dizziness) Related Data Home Medications ?Medication ?Instructions ?Recorded ?Confirmed cetirizine 10 mg tablet 10 mg PO QDAY 01/31/24 01/18/25 risperidone 2 mg tablet 2 mg PO QPM 01/31/24 01/18/25 trazodone 100 mg tablet 100 mg PO QDAY 01/31/24 01/18/25 Previous Rx's ?Medication ?Instructions ?Recorded pantoprazole 40 mg tablet,delayed 40 mg PO QDAY #30 tabs 01/20/25 release propranolol 10 mg tablet 10 mg PO TID 30 days #90 tabs 01/20/25 Allergies Allergy/AdvReac Type Severity Reaction Status Date / Time No Known Allergies Allergy Verified 02/18/25 18:52 Review of Systems Review of Systems Systems Reviewed: All systems reviewed, normal except as documented Past Medical History Past Medical History NEUROLOGIC: Positive Seizures; Negative Neurological Disorders, Cerebrovascular Accident, Transient Ischemic Attacks (TIA), Dementia, Alzheimer's Disease, Parkinson's Disease, Brain Tumor, Meningitis, Epilepsy, Multiple Sclerosis, Cerebral Palsy, Amyotrophic Lateral Sclerosis (ALS/Lizbeth Gehrig's), Guillain-Lawn Syndrome, Spina Bifida, Paralysis, Peripheral Neuropathy, Jara's Palsy, Subdural Hematoma, Migraine, Head Trauma, Spinal Cord Injury or Traumatic Brain Injury CARDIAC: Positive Cardiac Disorders and Hypertension; Negative Myocardial Infarction, Cardiac Arrhythmia, Atrial Fibrillation, Angina, Heart Murmur, Coronary Artery Disease, Atherosclerotic Heart Disease, Peripheral Vascular Disease, Hypercholesterolemia, Aneurysm, Congestive Heart Failure, Congenital Heart Disease, Valvular Heart Disease, Rheumatic Fever, Cardiomyopathy, Edema, Pericarditis, Cellulitis, Deep Vein Thrombosis, Hypotension or Varicose Veins RESPIRATORY: Negative Chronic Obstructive Pulmonary Disease (COPD), Asthma, Bronchitis, Emphysema, Pneumonia, Pulmonary Fibrosis, Cystic Fibrosis, Tuberculosis, Pulmonary Embolism, Pulmonary Edema or Sleep Apnea GASTROINTESTINAL: Positive Cirrhosis (ALCOHOL DEPENDENT); Negative Gastrointestinal Disorders, Hepatitis, Pancreatitis, Celiac Disease, Gall Bladder Disease, Gastrointestinal Bleed, Esophageal Varices, Soto's Esophagus, Colitis, Ulcerative Colitis, Diverticulitis, Diverticulosis, Ulcer, Colorectal Cancer, Irritable Bowel, Crohn's Disease, Obstructive Bowel, Hiatal Hernia, Hemorrhoids, Gastroesophageal Reflux Disease or Obesity GENITOURINARY: Negative Genitourinary Disorders, Renal Disease, Kidney Stones, Polycystic Kidney Disease, Neurogenic Bladder, Inguinal Hernia, Dialysis, Prostate Cancer or Benign Prostatic Hyperplasia REPRODUCTIVE: Negative Testicular Cancer MUSCULOSKELETAL: Negative Musculoskeletal Disorders, Myasthenia Gravis, Marfan's Syndrome, Bone Cancer, Arthritis, Rheumatoid Arthritis, Osteoporosis, Degenerative Disk Disease, Gout, Scoliosis, Carpal Tunnel Syndrome, Fibromyalgia, Fractures, Degenerative Joint Disease, Osteomyelitis or Poliovirus ENT: Negative Cataracts, Glaucoma, Blind, Retinal Detachment, Macular Degeneration, Ear Infection, Deafness, Head Trauma or Eye Prosthesis ENDOCRINE: Negative Endocrine Disorders, Diabetes Mellitus Type 1, Diabetes Mellitus Type 2, Hypoglycemia, Salty's Syndrome, [place]'s Disease, Hyperthyroidism, Hypothyroidism, Parathyroid Disease, Pituitary Disease, Systemic Lupus Erythematosus, Syndrome of Inappropriate Antidiuretic Hormone (SIADH), Adrenal Disease or Graves' Disease HEMATOLOGIC: Negative Blood Disorders, Anemia, Leukemia, Hemophilia, Thalassemia, Sickle Cell Disease or Clotting Problems PSYCHO/SOCIAL: Positive Psychiatric Problems; Negative Schizophrenia, Recreational Drug Use, Bipolar Disorder, Depression, Anxiety, Behavior Problems, Self-Mutilation, Attention Deficit Disorder, Attention Deficit Hyperactivity Disorder, Post Traumatic Stress Disorder or Eating Disorder OTHER HISTORY: Negative Hospitalization, Autoimmune Disease, Down Syndrome, Autism, Developmental Delay, Shingles, Falls, Blood Transfusions, Blood Transfusion Reaction, Anesthesia Reactions, Organ Transplant, Chemotherapy, Radiation Therapy, Hyperbaric Therapy, MRSA, VRSA, Vancomycin-Resistant Enterococci, Human Immunodeficiency Virus (HIV), Chicken Pox, Measles, Mumps, Rubella (Croatian Measles), Pertussis, Clostridium Difficile, Cancer, Colorectal Cancer, Lung Cancer, Prostate Cancer or Testicular Cancer Family History FAMILY HISTORY: Negative Family Psychiatric Problems, Family Respiratory Disorders, Family Cardiac Disorders, Family Gastrointestinal Problems, Family Cancer, Family Surgery or Family Anesthesia Reaction Surgical History SURGICAL: Negative Cardiac Surgery, Open Heart Surgery, Coronary Artery Bypass Graft, Valve Replacement, Vascular Surgery, Coronary Stent, Cardiac Catheterization, Pacemaker, Angiogram, Auto Implanted Cardiovert Defib, Carotid Endarterectomy, Endocrine Surgery, Thyroidectomy, Ear Surgery, Tympanostomy Tube, Eye Surgery, Nose Surgery, Oral Surgery, Tonsillectomy, Adenoidectomy, Cochlear Implant, Corneal Transplant, Throat Surgery, Abdominal Surgery, Tracheostomy, Gastric Bypass Surgery, Gastrostomy, Bowel Surgery, Nephrectomy, Transurethral Resection, Joint Replacement, Amputation, Open Reduction Internal Fixation, Arthroscopy, Neurologic Surgery, Brain Shunt, Vasectomy or Organ Transplant Social History SMOKING STATUS: Never smoker SECOND HAND EXPOSURE: No ED Exam Narrative Physical exam: GENERAL APPEARANCE: Patient is AO x 3, shaky in no acute distress. HEENT: NC, AT. Dry mucous membrane. EOMI, clear conjunctiva, oropharynx clear. NECK: Supple without lymphadenopathy. No stiffness or restricted ROM. HEART: Sinus tachycardia with regular rhythm, normal S1/S2, no m/r/g LUNGS: CTAB, moving air well. No crackles or wheezes are heard. ABDOMEN: Soft, nontender, nondistended with good bowel sounds heard. BACK: No CVAT, no obvious deformity. EXTREMITIES: Without cyanosis, clubbing or edema. NEUROLOGICAL: Grossly nonfocal. Alert and oriented, moving all 4 extremities. CN not formally tested but appear grossly intact. Observed to ambulate with normal gait. Skin: Warm and dry without any rash. Psych: Mildly shaky however appropriate mood and affect Course Quality Measures none Orders Category Date Time Status Aspiration precautions ONCE Care 02/18/25 19:24 Active COVID-19 Screening Questionnaire NOW Care 02/18/25 21:09 Ordered Decision to Admit X1 Care 02/18/25 21:09 Ordered EKG (ED ONLY) *Do not use* NOW Care 02/18/25 18:58 Completed Head of Bed Elevation NOW Care 02/18/25 19:24 Active Neuro Check Q4H Care 02/18/25 19:13 Active Seizure precautions ONCE Care 02/18/25 19:24 Active CXR [XR chest 1V] Stat Exams 02/18/25 20:30 Taken EKG (ED Only) Stat Exams 02/18/25 18:58 Ordered Alcohol, Blood Medical Stat Lab 02/18/25 19:30 Completed Alcohol, Urine Stat Lab 02/18/25 19:13 Ordered Ammonia Routine Lab 02/18/25 20:38 Completed CBC Stat Lab 02/18/25 19:30 Completed CMP [Comprehensive Metabolic Panel] Stat Lab 02/18/25 19:30 Completed Creatine Kinase Stat Lab 02/18/25 19:30 Completed Drug Screen,Urine Stat Lab 02/18/25 19:13 Ordered INR [Prothrombin Time with INR] Stat Lab 02/18/25 19:30 Completed Ketone [Beta Hydroxybutyrate] Stat Lab 02/18/25 19:30 Completed Lactate (Lactic Acid) Stat Lab 02/18/25 19:30 Results Mag [Magnesium] Stat Lab 02/18/25 19:30 Completed PTT [Partial Thromboplastin Time] Stat Lab 02/18/25 19:30 Completed Type and Screen Stat Lab 02/18/25 20:38 Results Urinalysis Stat Lab 02/18/25 19:12 Ordered VBG [Venous Blood Gas] Stat Lab 02/18/25 19:30 Completed Folic Acid Inj Med 02/18/25 19:23 Discontinued 1 mg IVP X1 ONE KCL 10% Liq UDC 15 ML Med 02/18/25 20:21 Discontinued 40 meq GT X1 ONE LORazepam [Ativan Inj] Med 02/18/25 20:01 Active 2 mg IVP Q6H PRN Magnesium Sulfate 2 GM Ivpb [Magnesium Sulfate Ivpb] Med 02/18/25 19:23 Active 2 gm in 50 ml IV X1 Magnesium Sulfate 2 GM Ivpb [Magnesium Sulfate Ivpb] Med 02/18/25 22:00 Active 2 gm in 50 ml IV X1 Ondansetron Inj [Zofran Inj] Med 02/18/25 19:22 Discontinued 4 mg IV X1 ONE PHENobarbital Inj 130 mg Med 02/18/25 19:22 Discontinued Sodium Chloride 0.9% Flush [NS Flush] 12 ml IVP X1 Pantoprazole Inj [Protonix Inj] Med 02/18/25 19:31 Discontinued 40 mg IV X1 ONE Ringers Lactated 1000 ml [Lactated Ringers] 1,000 ml Med 02/18/25 20:23 Active IV 75 mls/hr Ringers Lactated 1000 ml [Lactated Ringers] 1,000 ml Med 02/18/25 19:22 Discontinued IV 999 mls/hr Thiamine Inj [Vitamin B-1 Inj] Med 02/18/25 19:23 Discontinued 100 mg IVP X1 ONE Vital Signs Vital signs: Vital Signs Pulse Rate 88 02/18/25 18:52 Respiratory Rate 19 02/18/25 18:52 Blood Pressure 147/92 H 02/18/25 18:52 Pulse Oximetry (%) 95 02/18/25 18:52 Oxygen Delivery Method Room Air 02/18/25 18:52 Discharge Plan Prescriptions/Referrals Prescriptions/Med Rec: No Action cetirizine 10 mg Tablet 10 mg PO QDAY risperidone 2 mg tablet 2 mg PO QPM Patient Comments: TAKE 1 TABLET BY MOUTH EVERYDAY AT BEDTIME trazodone 100 mg Tablet 100 mg PO QDAY pantoprazole 40 mg tablet,delayed release (DR/EC) 40 mg PO QDAY Qty: 30 1RF propranolol 10 mg tablet 10 mg PO TID 30 Days Qty: 90 0RF Problem List Clinical Impression: Alcohol withdrawal seizure, Seizure disorder, Alcohol use disorder Patient/Caregiver Discharge Instructions Print Language: Kittitian MDM Medication Administration(s) Medication Administration History Magnesium Sulfate (Magnesium Sulfate Ivpb) 2 gm in 50 mls @ 25 mls/hr IV X1 ONE Stop: 02/18/25 21:22 Last Admin: 02/18/25 19:41 Dose: 25 mls/hr Documented By: BD Magnesium Sulfate (Magnesium Sulfate Ivpb) 2 gm in 50 mls @ 25 mls/hr IV X1 ONE Stop: 02/18/25 23:59 Lactated Ringer's (Lactated Ringers) 1,000 mls @ 75 mls/hr IV .[id number] NA Stop: 03/20/25 20:22 Last Admin: 02/18/25 20:48 Dose: 75 mls/hr Documented By: EF Lorazepam (Lorazepam 2 Mg/Ml Vial) 2 mg IVP Q6H PRN PRN Reason: Breakthrough seizures Stop: 02/23/25 20:14 Discontinued Medications Phenobarbital Sodium 130 mg/ (Sodium Chloride 12 ml) 0 mg IVP X1 ONE Stop: 02/18/25 19:23 Last Admin: 02/18/25 19:39 Dose: 130 mg Documented By: BD Folic Acid (Folic Acid Inj 1 Mg/0.2 Ml) 1 mg IVP X1 ONE Stop: 02/18/25 19:24 Last Admin: 02/18/25 19:40 Dose: 1 mg Documented By: BD Lactated Ringer's (Lactated Ringers) 1,000 mls @ 999 mls/hr IV .Q1H1M ONE Stop: 02/18/25 20:22 Last Admin: 02/18/25 19:41 Dose: 999 mls/hr Documented By: BD Ondansetron HCl (Ondansetron Inj 2 Mg/Ml Inj 2 Ml) 4 mg IV X1 ONE; Protocol Stop: 02/18/25 19:23 Last Admin: 02/18/25 19:39 Dose: 4 mg Documented By: BD Pantoprazole Sodium (Pantoprazole Inj 40 Mg Vial) 40 mg IV X1 ONE Stop: 02/18/25 19:32 Last Admin: 02/18/25 19:40 Dose: 40 mg Documented By: BD Potassium Chloride (Potassium Chloride 10% 20 Meq/15 Ml Udc) 40 meq GT X1 ONE Stop: 02/18/25 20:22 Last Admin: 02/18/25 20:48 Dose: 40 meq Documented By: EF Thiamine HCl (Thiamine Inj 100 Mg/Ml Vial 2 Ml) 100 mg IVP X1 ONE Stop: 02/18/25 19:24 Last Admin: 02/18/25 19:40 Dose: 100 mg Documented By: BD
[2025-02-18] MEDS: PHENobarbital Inj 130 MG, SODIUM CHLORIDE 0.9% FLUSH 12 ML IVP (19:39)
[2025-02-18] MEDS: ONDANSETRON INJ 2 MG/ML INJ 2 ML 4 MG IV (19:39)
[2025-02-18] MEDS: PANTOPRAZOLE INJ 40 MG VIAL IV (19:40)
[2025-02-18] MEDS: THIAMINE INJ 100 MG/ML VIAL 2 ML IVP (19:40)
[2025-02-18] MEDS: FOLIC ACID INJ 1 MG/0.2 ML IVP (19:40)
[2025-02-18] MEDS: Magnesium Sulfate 2 GM Ivpb 2 GM/50 ML BAG IV ×2 (19:41→21:59)
[2025-02-18] MEDS: RINGERS LACTATED 1000 ML 1,000 ML 999 ML IV (19:41)
[2025-02-18 19:45] LABS: Base Excess, Venous 2 (-3-3); O2 Saturation, Venous 82 % (96-97); PCO2, Venous 39 mmHg (36-56); PO2, Venous 52 mmHg (15-58); pH, Venous 7.43 (7.33-7.66)
[2025-02-18 19:46] LABS: Beta Hydroxybutyrate 0.8 mmol/L (<0.6)
[2025-02-18 19:50] LABS: Basophils % (Auto) 0 % (0-2.5); Eosinophils % (Auto) 0 % (0-10); Hematocrit 30.9 % (41.0-53.0); Hemoglobin 10.7 g/dL (13.5-16.0); Immature Granulocytes % (Auto) 0 % (0-0); Immature Granulocytes Auto 0.01 Thou/mm3 (0.00-0.00); Lymphocytes # (Auto) 0.3 Thou/mm3 (1.0-4.8); Lymphocytes % (Auto) 8 % (10-50); Mean Corpuscular HGB Conc 34.6 g/dl (31.0-37.0); Mean Corpuscular Hemoglobin 29.6 pg (25.0-35.0); Mean Corpuscular Volume 86 fL (80-100); Monocytes # (Auto) 0.3 Thou/mm3 (0.0-0.8); Monocytes % (Auto) 8 % (0-12); Neutrophils % (Auto) 84 % (37-80); Nucleated Red Blood Cell % 0 /100 WBC (0); RDW Standard Deviation 43.9 fL (35.1-43.9); Red Blood Count 3.61 Miln/mm3 (4.50-5.90); White Blood Count 3.6 Thou/mm3 (3.8-10.6)
[2025-02-18 20:07] LABS: Platelet Count 51 Thou/mm3 (140-440)
[2025-02-18 20:19] LABS: Alanine Aminotransferase 40 U/L (10-49); Albumin, Serum 4.2 gm/dL (3.5-5.0); Albumin/Globulin Ratio 1.1 (1.2-2.2); Alcohol, Blood Medical < 3.0 mg/dL (0-10.0); Alkaline Phosphatase 103 U/L (46-116); Anion Gap 12 (7-16); Aspartate Amino Transferase 87 U/L (0-34); BUN/Creatinine Ratio 17 Ratio (12-20); Bilirubin,Total 1.4 mg/dL (0.3-1.2); Blood Urea Nitrogen 10 mg/dL (9-23); Calcium 9.3 mg/dL (8.3-10.6); Calcium (Corrected) 9.3 mg/dL (8.5-10.1); Carbon Dioxide 23.9 mMol/L (20.0-31.0); Chloride 96 mMol/L (98-107); Creatine Kinase 174 U/L (34-171); Creatinine (Component) 0.6 mg/dL (0.6-1.3); Estimated Creatinine Clearance 181.9 mL/min (>60); Globulin 3.9 gm/dL (2.3-3.5); Glucose 133 mg/dL (74-106); Magnesium 1.5 mg/dL (1.6-2.6); Osmolality,Calculated 265 (275-295); Potassium 3.4 mMol/L (3.4-5.1); Sodium 132 mMol/L (136-145); Total Protein 8.1 gm/dL (5.7-8.2); eGFR > 60 See Note
--- NOTE | 2025-02-18 20:30 | XR_ITS ---
Examination: AP chest single view TECHNIQUE: 70 upright AP chest single view Exam date and time: February [id number] hours Comparison January 17, 2025 INDICATIONS: Seizure and vomiting today. FINDINGS: Normal heart size. No aspiration pneumonia. Osseous structures are intact IMPRESSION: Negative for aspiration pneumonia
[2025-02-18 20:36] LABS: INR 1.1 (0.9-1.3); Partial Thromboplastin Time 28.5 Seconds (22.0-36.0); Prothrombin Time 12.4 Seconds (9.0-12.2)
[2025-02-18 20:41] LABS: Slide Review Platelets confirmed
[2025-02-18] MEDS: POTASSIUM CHLORIDE 10% 20 MEQ/15 ML UDC 40 MEQ GT (20:48)
[2025-02-18] MEDS: RINGERS LACTATED 1000 ML 1,000 ML 75 ML IV (20:48)
[2025-02-18 20:54] VITALS: BP 123/82; PULSE 85; RESP 16; TEMP 37; O2SAT 95
[2025-02-18 21:08] LABS: Ammonia < 10 uMol/L (11-32)
--- NOTE | 2025-02-18 21:12 | PD.EVENT ---
Documentation for date of: 02/18/25 Event Note Event Note: A 34-year-old male presented to the ER with the chief complaint of seizure-like activity. Per his mother, the patient had 4?5 seizures at home, each lasting approximately 15 seconds, with total seizure-like activity lasting 10 minutes. He was initially observed standing and confused, grabbing at objects and speaking nonsensically. He became stiff and then experienced whole-body convulsions. Per EMS, he was postictal for 15?20 minutes. Patient does not recall the events and only endorses dizziness and shakiness. He drinks alcohol daily?typically 4?5 tall cans of beer?and has been drinking since age 16. He was last hospitalized in January 2025 for similar alcohol withdrawal seizures and discharged on medications. Patient also vomited clear fluid prior to arrival. He denied chest pain, SOB, extremity weakness, fever, chills, headaches, or incontinence. He was recently started on seizure medication by his PCP. No history of drug use or smoking. The patient has a history of HTN, GI bleed/esophageal varices, and alcohol use disorder. He is not on daily antiseizure medication but takes it as needed for tremors. Surgical history is negative. Current medications include Protonix, Cetirizine, Risperidone, Propranolol, and Trazodone. Social history is positive for heavy chronic alcohol use; he denies drug and tobacco use. He is currently unemployed and lives with his mother. He has a son but is not . He lost his job at a [employer] due to his medical condition. In the ER, vital signs were: temp 98.6?F, HR 85 bpm, RR 19, BP 147/92 mmHg. Labs revealed WBC 3.6, Hb 10.7, Plt 51, INR 1.1, Na 132, K 3.4, Cl 96, BUN 10, Cr 0.6, glucose 133, lactic acid 5.0, Mg 1.5. The patient was placed on oxygen and cardiac monitoring. Blood sugar en route was 144. Admitted for alcohol withdrawal seizures. #Alcohol Withdrawal Seizures Assessment: Recurrent seizures (4?5 episodes, tonic-clonic), postictal state, recent similar episode in January 2025, chronic heavy alcohol use, elevated lactate (5.0), low Mg (1.5), mild hyponatremia (Na 132), mild thrombocytopenia (Plt 51) Plan: - Initiate CIWA protocol - Replete magnesium to >2.0 mEq/L to reduce seizure risk - Seizure precautions and neurologic monitoring - Supportive care with IV fluids and thiamine prior to glucose - Social work referral for psychosocial support and substance use resources #Hypomagnesemia Assessment: Mg 1.5, risk factor for seizures and arrhythmia, associated with chronic alcohol use Plan: - Replete IV magnesium sulfate to maintain Mg >2.0 - Monitor magnesium level daily #Thrombocytopenia Assessment: Platelets 51K, history of GI bleed/esophageal varices, chronic alcohol use, no active bleeding Plan: - Monitor platelet trends daily - Avoid antiplatelet/anticoagulant medications unless essential - SCD #Chronic Hypertension Assessment: BP 147/92 on admission, known history, likely undertreated Plan: - Continue home medications - Monitor BP daily #Anemia Assessment: Hb 10.7, history of GI bleed, chronic alcohol use Plan: - Monitor hemoglobin - Consider GI evaluation if bleeding suspected - Outpatient follow-up
--- NOTE | 2025-02-18 21:34 | PD.RESHP ---
Documentation for date of: 02/18/25 HPI History of Present Illness History of present illness: The patient is a 34-year-old male, past medical history of alcohol abuse disorder, history of seizures, and GI bleed who came to the ER after having witnessed seizures. Patient's mother is present at bedside who reported patient had multiple episode of generalized tonic-clonic seizures, and his body stiffened up and started jerking movements, lasting about 20 to 30 seconds. Per mother, he had 5 episodes of seizures, and was drowsy afterwards. Also reported history of hallucinations, the patient was grabbing at unknown things and talking gibberish, preceding to episode of seizures. He also had 1 episode of vomiting after the seizures. Denied any hematemesis or melena. Patient reported that his last drink was 24 hours ago. Per patient he has no formal diagnosis of epilepsy, and has never been followed by a neurologist, also mother was concerned that he has had seizures while he is still drinking. Patient reported he had tried to quit alcohol, but has relapsed quite a few times. Currently he denied any hallucinations, did report anxiety and shakiness, headache. Denied chest pain or fever or cough or shortness of breath. In the ER patient had stable vitals, initial labs show hemoglobin 10.7, platelet 51, INR 1.1, normal kidney function, lactic acid 5. patient was given phenobarbital x 1 for high CIWA, banana bag. Past medical history: History of seizures, likely residual seizures, history of GI bleed secondary to esophageal varices, alcohol abuse disorder. Social history: Patient reported drinking 2 -3 tall cans of alcohol Exam Vital Signs Temp Pulse Resp BP Pulse Ox O2 Del Method 98.6 F 85 16 123/82 95 Room Air 02/18/25 20:54 02/18/25 20:54 02/18/25 20:54 02/18/25 20:54 02/18/25 20:54 02/18/25 20:54 Narrative Exam General: AOx3, cooperative, anxious Skin: Intact, no cyanosis or edema noted. HEENT: Atraumatic/normocephalic, FERNANDO, neck supple Heart: RRR, S1 and S2 without clicks or murmurs Lungs: Clear on auscultation bilaterally, no difficulty breathing Abdomen: Soft, nontender. Bowel sounds present . Vascular: Peripheral pulses palpable Neuro: No focal neurological deficits noted. Results: Labs 02/18/25 19:30 02/18/25 19:30 Labs: Short CBC 02/18/25 Range/Units 19:30 WBC 3.6 L (3.8-10.6) Thou/mm3 Hgb 10.7 L (13.5-16.0) g/dL Hct 30.9 L (41.0-53.0) % Plt Count 51 L (140-440) Thou/mm3 BMP 02/18/25 19:30 Sodium 132 L Potassium 3.4 Chloride 96 L Carbon Dioxide 23.9 BUN 10 Creatinine 0.6 Glucose 133 H Calcium 9.3 Cardiac Enzymes 02/18/25 Range/Units 19:30 Total Creatine Kinase 174 H (34-171) U/L Liver Function 02/18/25 Range/Units 19:30 Total Bilirubin 1.4 H (0.3-1.2) mg/dL AST 87 H (0-34) U/L ALT 40 (10-49) U/L Alkaline Phosphatase 103 (46-116) U/L Albumin 4.2 (3.5-5.0) gm/dL ABG Interpretation ABG results: 02/18/25 19:30 VBG pH 7.43 VBG pCO2 39 VBG pO2 52 VBG Base Excess 2 Quality Measures Quality Measures none Medications Home Medications and Allergies Home Medications ?Medication ?Instructions ?Recorded ?Confirmed ?Type cetirizine 10 mg tablet 10 mg PO QDAY 01/31/24 01/18/25 History risperidone 2 mg tablet 2 mg PO QPM 01/31/24 01/18/25 History trazodone 100 mg tablet 100 mg PO QDAY 01/31/24 01/18/25 History Allergies Allergy/AdvReac Type Severity Reaction Status Date / Time No Known Allergies Allergy Verified 02/18/25 18:52 Visit Medications Magnesium Sulfate (Magnesium Sulfate Ivpb) 2 gm in 50 mls @ 25 mls/hr IV X1 ONE Stop: 02/18/25 23:59 Lactated Ringer's (Lactated Ringers) 1,000 mls @ 75 mls/hr IV .[id number] NA Stop: 03/20/25 20:22 Last Admin: 02/18/25 20:48 Dose: 75 mls/hr Lorazepam (Lorazepam 2 Mg/Ml Vial) 2 mg IVP Q6H PRN PRN Reason: Breakthrough seizures Stop: 02/23/25 20:14 Discontinued Medications Phenobarbital Sodium 130 mg/ (Sodium Chloride 12 ml) 0 mg IVP X1 ONE Stop: 02/18/25 19:23 Last Admin: 02/18/25 19:39 Dose: 130 mg Folic Acid (Folic Acid Inj 1 Mg/0.2 Ml) 1 mg IVP X1 ONE Stop: 02/18/25 19:24 Last Admin: 02/18/25 19:40 Dose: 1 mg Lactated Ringer's (Lactated Ringers) 1,000 mls @ 999 mls/hr IV .Q1H1M ONE Stop: 02/18/25 20:22 Last Admin: 02/18/25 19:41 Dose: 999 mls/hr Magnesium Sulfate (Magnesium Sulfate Ivpb) 2 gm in 50 mls @ 25 mls/hr IV X1 ONE Stop: 02/18/25 21:22 Last Admin: 02/18/25 19:41 Dose: 25 mls/hr Ondansetron HCl (Ondansetron Inj 2 Mg/Ml Inj 2 Ml) 4 mg IV X1 ONE; Protocol Stop: 02/18/25 19:23 Last Admin: 02/18/25 19:39 Dose: 4 mg Pantoprazole Sodium (Pantoprazole Inj 40 Mg Vial) 40 mg IV X1 ONE Stop: 02/18/25 19:32 Last Admin: 02/18/25 19:40 Dose: 40 mg Potassium Chloride (Potassium Chloride 10% 20 Meq/15 Ml Udc) 40 meq GT X1 ONE Stop: 02/18/25 20:22 Last Admin: 02/18/25 20:48 Dose: 40 meq Thiamine HCl (Thiamine Inj 100 Mg/Ml Vial 2 Ml) 100 mg IVP X1 ONE Stop: 02/18/25 19:24 Last Admin: 02/18/25 19:40 Dose: 100 mg Assessment & Plan Plan Patient is a 34-year-old male, past medical history of seizure disorder, alcohol abuse disorder, alcohol withdrawal seizures, GI bleed who was brought to the emergency room after multiple episodes of witnessed seizures. #Seizure disorder DDx: Alcohol withdrawal seizures versus epilepsy History of recent admissions for similar complaints of seizures, but has had seizure at random times when he is still drinking. Currently being managed as alcohol withdrawal seizures, patient had prior EEGs during previous hospitalizations, but those are degraded by artifact likely due to withdrawal symptoms. Patient may require neurology consult to formally evaluate for epilepsy. Already received banana bag in the ER. ? Scheduled Librium 25 mg every 8 hours ? Symptom triggered CIWA protocol with Ativan ? P.o. thiamine and folic acid ? Seizure precautions in place ? Aspiration precautions in place #History of GI bleed/esophageal varices #Hepatomegaly #Alcoholic liver disease Patient's prior medical presentations were related to GI bleed, esophageal varices and mucosal oozing of blood throughout stomach on EGD on previous hospitalization. In addition to thrombocytopenia, history of excessive alcohol use, Maddrey's discriminant function score 2.3 which is good prognosis, no indication for IV steroids, ammonia less than 10, previous ultrasound of liver showed hepatomegaly, normal portal venous flow. ? Protonix 40 mg IV daily ? Will recommend patient to follow outpatient with [facility] to rule out cirrhosis. ? Recommended patient abstain from alcohol #Thrombocytopenia Likely related to alcoholic liver disease, continue to monitor daily CBC. #Vomiting Reported 1 episode of vomiting, n containing food contents after seizures. ? Added Zofran as needed ? Aspiration precautions in place. Disposition: tele DVT prophylaxis: none, pt is mobile GI prophylaxis: protonix Diet: regular Lines: PIV CODE STATUS: Full Plan of care discussed with attending Dr. Darshan Salas PGY2 Attending Provider Attestation/Addendum Pt was evaluated and plan formulated together with the housestaff team. I have reviewed the residents note above and agree with most of its content. Please refer to the residents note for additional details.
--- NOTE | 2025-02-18 21:51 | PC.NURSE ---
new orders for folic acid and thiamine po pt received both iv in er dr. patton advised to hold tonight does and he can start tomorrow po meds
--- NOTE | 2025-02-18 21:53 | PC.NURSE ---
spoke with pt got 2gm already but has another at 2200 advised that he still wants to give the dose scheduled at 2200
[2025-02-18] MEDS: chlordiazePOXIDE HCl 25 MG CAPSULE PO (21:58)
[2025-02-18 22:03] VITALS: PULSE 78; RESP 13; RESP 96
--- NOTE | 2025-02-18 22:14 | PC.NURSE ---
caro sup called to have pt changed from med to med tele or tele due to seizures and withdraw
[2025-02-18 22:39] LABS: Reflex Lactate? Y
[2025-02-18 22:46] VITALS: PULSE 79; RESP 18; RESP 96
[2025-02-18 23:00] VITALS: BP 134/88; PULSE 75; RESP 16; TEMP 37; O2SAT 100
[2025-02-18 23:15] LABS: Lactic Acid, 3 HR 1.2 mMol/L (0.4-2.0)
--- NOTE | 2025-02-18 23:18 | RESP.EEG ---
EEG COMPLETED AND READY FOR REVIEW.
[2025-02-18 23:35] LABS: Collection Type, Urine Clean Catch; RBC,Urine 0 /hpf (0-3); Squamous Epithelial Cell,Urine 0 /hpf (0-5); WBC,Urine 0 /hpf (0-5)
[2025-02-19] VITALS (9 sets, daily range): BP systolic 127–147; BP diastolic 85–94; PULSE 68–96; RESP 12–98; TEMP 35.7–37.3; O2SAT 97–99; BMI 24.0
[2025-02-19 00:08] LABS: Amphetamine/Methamp Scrn,U Negative (Negative); Barbiturate Screen,Urine Positive (Negative); Benzodiazepines Screen,Urine Negative (Negative); Benzoylecgonine Screen, Ur Negative (Negative); Fentanyl Screen,Urine Negative (Negative); Opiate Screen,Urine Negative (Negative); THC Screen,Urine Negative (Negative)
[2025-02-19 00:12] LABS: Alcohol, Urine Negative (Negative)
[2025-02-19 00:25] LABS: Bilirubin,Urine 1+ (Negative); Blood,Urine Negative (Negative); Clarity,Urine Clear (Clear/Hazy); Color,Urine Yellow (Lt Yel-Yel); Glucose, Urine Negative (Negative); Ketones,Urine 1+ (Negative); Leukocyte Esterase,Urine Negative (Negative); Nitrite,Urine Negative (Negative); Protein,Urine 2+ (Neg - Trace); Specific Gravity,Urine 1.025 (1.001-1.035)
[2025-02-19 01:23] LABS: Amorphous Crystals,Urine Present (Absent)
[2025-02-19] MEDS: chlordiazePOXIDE HCl 25 MG CAPSULE PO ×3 (05:22→21:38)
[2025-02-19 06:16] LABS: Basophils % (Auto) 0 % (0-2.5); Eosinophils % (Auto) 0 % (0-10); Hematocrit 31.1 % (41.0-53.0); Hemoglobin 10.4 g/dL (13.5-16.0); Immature Granulocytes % (Auto) 0 % (0-0); Immature Granulocytes Auto 0.01 Thou/mm3 (0.00-0.00); Lymphocytes # (Auto) 0.7 Thou/mm3 (1.0-4.8); Lymphocytes % (Auto) 22 % (10-50); Mean Corpuscular HGB Conc 33.4 g/dl (31.0-37.0); Mean Corpuscular Hemoglobin 30.1 pg (25.0-35.0); Mean Corpuscular Volume 90 fL (80-100); Monocytes # (Auto) 0.4 Thou/mm3 (0.0-0.8); Monocytes % (Auto) 11 % (0-12); Neutrophils # (Auto) 2.2 Thou/mm3 (1.8-7.7); Neutrophils % (Auto) 67 % (37-80); Nucleated Red Blood Cell % 0 /100 WBC (0); Red Blood Count 3.45 Miln/mm3 (4.50-5.90); White Blood Count 3.3 Thou/mm3 (3.8-10.6)
[2025-02-19 06:18] LABS: INR 1.1 (0.9-1.3); Prothrombin Time 12.2 Seconds (9.0-12.2)
[2025-02-19 06:20] LABS: Platelet Count 46 Thou/mm3 (140-440)
[2025-02-19 06:29] LABS: Alanine Aminotransferase 31 U/L (10-49); Albumin, Serum 3.8 gm/dL (3.5-5.0); Alkaline Phosphatase 93 U/L (46-116); Anion Gap 11 (7-16); Aspartate Amino Transferase 74 U/L (0-34); BUN/Creatinine Ratio 12 Ratio (12-20); Bilirubin,Direct 0.6 mg/dL (0.0-0.3); Bilirubin,Total 1.4 mg/dL (0.3-1.2); Blood Urea Nitrogen 7 mg/dL (9-23); Calcium 8.3 mg/dL (8.3-10.6); Carbon Dioxide 28.9 mMol/L (20.0-31.0); Cardiac Risk Estimate 1.9 RATIO (4.0-6.7); Chloride 98 mMol/L (98-107); Cholesterol 191 mg/dL (132-200); Creatinine (Component) 0.6 mg/dL (0.6-1.3); Glucose 91 mg/dL (74-106); HDL Cholesterol 100 mg/dL (40-60); LDL Cholesterol,Calculated 77 mg/dL (0-130); Osmolality,Calculated 273 (275-295); Potassium 3.8 mMol/L (3.4-5.1); Sodium 138 mMol/L (136-145); Thyroid Stimulating Hormone 3.31 uIU/mL (0.55-4.78); Total Protein 7.3 gm/dL (5.7-8.2); Triglycerides 69 mg/dL (30-150); eGFR > 60 See Note
[2025-02-19 07:01] LABS: Slide Review Platelets confirmed
[2025-02-19] MEDS: THIAMINE 100 MG TABLET PO ×2 (10:08→21:38)
[2025-02-19] MEDS: FOLIC ACID 1 MG TABLET PO ×2 (10:08→21:38)
[2025-02-19] MEDS: PANTOPRAZOLE INJ 40 MG VIAL IVP (10:09)
--- NOTE | 2025-02-19 10:09 | XR_ITS ---
Examination: CT brain head without contrast. 2-D sagittal coronal reconstructions Date and time of exam:February 19, 2025 1236 hours Comparison November 27, 2024 INDICATIONS: Seizures today, seizures November 27, 2024 CTDI: vol (mGy):48.2 DLP: (mGycm):1013 Technique: Multiple CT axial sections of the brain have been obtained, 5 mm slice thickness. Contrast has not been administered. 2-D sagittal, coronal reconstructions have been obtained Low dose protocols were performed. One or more of the following dose reduction techniques were used; automated exposure control, adjustment of the mA and/or KV according to patient size, use of iterative reconstruction technique. Findings: No significant ventricular enlargement. Intra-axial or extra-axial hemorrhage density is not seen. No mass effect or midline shift Basal cisterns are not remarkable. Fourth ventricle is midline. Cranial vault intact. Impression: Negative for acute hemorrhage, mass effect or midline shift Consider elective brain MRI follow-up, pre and postcontrast, seizure protocol
[2025-02-19] MEDS: RINGERS LACTATED 1000 ML 1,000 ML 75 ML IV (10:10)
--- NOTE | 2025-02-19 11:14 | PC.SS ---
SS met with patient who is alert/oriented. He was able to verify demographics. Patient was admitted for alcohol withdraw seizures. Patient states he resides with his parents. He is independent with ADL's. He has a long history of drinking alochol since his teens. Patient states he drinks beer. Last drink of alcohol was Wednesday before he arrived to hospital. Patient states he's never been to any in patient or out patient alcohol rehab. Patient verbalized he's interested in quitting alcohol. Patient's support system consist of his parents and his aunt. Patient has hx: mental illness for anxiety. He states he was given medication that he's been taking for the last 2 years. No counseling services. PCP: [facility] in [place]. Renetta Patiño NP. Last appt.was 2-3 months ago. Alt medical decision maker: Mayte hopkins, . D/c plan: return home. SS will provide additional alcohol rehab resources. Family to transport.
--- NOTE | 2025-02-19 14:15 | PD.RESPRO ---
Documentation for date of: 02/19/25 Subjective Subjective Interval history: Patient seen today at the bedside found awake, alert, oriented x 3. No overnight events reported. Vital signs and labs reviewed. Considering the patient's history of alcohol abuse and seizure activity CT head was ordered. Additionally neurology was consulted, appreciate recommendations. Patient's last drink was about 24 hours ago we will continue with CIWA protocol at this time. Exam Vital Signs Temp Pulse Resp BP Pulse Ox O2 Del Method 96.9 F 73 18 127/94 H 97 Room Air 02/19/25 12:00 02/19/25 12:00 02/19/25 12:00 02/19/25 12:00 02/19/25 12:00 02/19/25 12:00 Narrative Exam Physical Exam GENERAL: NAD, AAOx3 HEENT: Moist mucosa. Eyes open, symmetrical, & clear CARDIO: Heart RRR, no obvious murmurs PULM: No noted coughing/dyspnea CTA B/L, no R/W/R GI: Abdomen soft, nondistended, no pain on palpation. BSx4 SKIN/MSK/EXT: No wounds/rashes/edema/amputations, no pain on palpation. Pedal pulses present B/L NEURO: AAOx3, no focal neuro deficits, able to move all 4 extremities Objective Labs 02/19/25 05:09 02/19/25 05:09 Labs: Laboratory Results - last 24 hr 02/18/25 02/18/25 02/18/25 19:30 20:38 22:46 WBC 3.6 L RBC 3.61 L Hgb 10.7 L Hct 30.9 L MCV 86 MCH 29.6 MCHC 34.6 RDW Std Deviation 43.9 Plt Count 51 L Neut % (Auto) 84 H Lymph % (Auto) 8 L Miller % (Auto) 8 Eos % (Auto) 0 Baso % (Auto) 0 Neut # (Auto) 3.0 Lymph # (Auto) 0.3 L Miller # (Auto) 0.3 Eos # (Auto) 0.0 Baso # (Auto) 0.0 Immature Gran # (Auto) 0.01 H Absolute Nucleated RBC 0.00 Immature Gran % 0 Nucleated RBC % 0 PT 12.4 H INR 1.1 APTT 28.5 VBG pH 7.43 VBG pCO2 39 VBG pO2 52 VBG O2 Sat (Gagan) 82 L VBG Base Excess 2 Sodium 132 L Potassium 3.4 Chloride 96 L Carbon Dioxide 23.9 Anion Gap 12 BUN 10 Creatinine 0.6 Estim Creat Clear Calc 181.9 eGFR > 60 BUN/Creatinine Ratio 17 Glucose 133 H Calculated Osmolality 265 L Lactic Acid 5.0 H* 1.2 Calcium 9.3 Corrected Calcium 9.3 Phosphorus Magnesium 1.5 L Total Bilirubin 1.4 H Direct Bilirubin AST 87 H ALT 40 Alkaline Phosphatase 103 Ammonia < 10 L Total Creatine Kinase 174 H Total Protein 8.1 Albumin 4.2 Globulin 3.9 H Albumin/Globulin Ratio 1.1 L Triglycerides Cholesterol LDL Cholesterol, Calc HDL Cholesterol Cholesterol/HDL Ratio Beta-Hydroxybutyrate/Acetoacetate 0.8 H TSH Ur Collection Type Urine Color Urine Clarity Urine pH Ur Specific [place] Urine Protein Urine Glucose (UA) Urine Ketones Urine Blood Urine Nitrite Urine Bilirubin Urine Urobilinogen (Auto) Ur Leukocyte Esterase Urine RBC Urine WBC Ur Squamous Epith Cells Amorphous Crystals Urine Bacteria Urine Opiates Screen Urine Fentanyl Screen Ur Barbiturates Screen U Amphetamin/Meth Scrn U Benzodiazepines Scrn U Cocaine Metab Screen U Marijuana (THC) Screen Urine Alcohol Ethyl Alcohol < 3.0 Misc Test Result Platelets confirmed Blood Type O Positive Antibody Screen NEGATIVE Blood Bank Wristband ID Yes 02/18/25 02/19/25 23:14 05:09 WBC 3.3 L RBC 3.45 L Hgb 10.4 L Hct 31.1 L MCV 90 MCH 30.1 MCHC 33.4 RDW Std Deviation 46.0 H Plt Count 46 L Neut % (Auto) 67 Lymph % (Auto) 22 Miller % (Auto) 11 Eos % (Auto) 0 Baso % (Auto) 0 Neut # (Auto) 2.2 Lymph # (Auto) 0.7 L Miller # (Auto) 0.4 Eos # (Auto) 0.0 Baso # (Auto) 0.0 Immature Gran # (Auto) 0.01 H Absolute Nucleated RBC 0.00 Immature Gran % 0 Nucleated RBC % 0 PT 12.2 INR 1.1 APTT VBG pH VBG pCO2 VBG pO2 VBG O2 Sat (Gagan) VBG Base Excess Sodium 138 Potassium 3.8 Chloride 98 Carbon Dioxide 28.9 Anion Gap 11 BUN 7 L Creatinine 0.6 Estim Creat Clear Calc 183.0 eGFR > 60 BUN/Creatinine Ratio 12 Glucose 91 Calculated Osmolality 273 L Lactic Acid Calcium 8.3 Corrected Calcium Phosphorus 3.0 Magnesium 2.0 Total Bilirubin 1.4 H Direct Bilirubin 0.6 H AST 74 H ALT 31 Alkaline Phosphatase 93 Ammonia Total Creatine Kinase Total Protein 7.3 Albumin 3.8 Globulin Albumin/Globulin Ratio Triglycerides 69 Cholesterol 191 LDL Cholesterol, Calc 77 HDL Cholesterol 100 H Cholesterol/HDL Ratio 1.9 L Beta-Hydroxybutyrate/Acetoacetate TSH 3.31 Ur Collection Type Clean Catch Urine Color Yellow Urine Clarity Clear Urine pH 8.0 H Ur Specific [place] 1.025 Urine Protein 2+ A Urine Glucose (UA) Negative Urine Ketones 1+ A Urine Blood Negative Urine Nitrite Negative Urine Bilirubin 1+ A Urine Urobilinogen (Auto) 4.0 Ur Leukocyte Esterase Negative Urine RBC 0 Urine WBC 0 Ur Squamous Epith Cells 0 Amorphous Crystals Present A Urine Bacteria None Urine Opiates Screen Negative Urine Fentanyl Screen Negative Ur Barbiturates Screen Positive A U Amphetamin/Meth Scrn Negative U Benzodiazepines Scrn Negative U Cocaine Metab Screen Negative U Marijuana (THC) Screen Negative Urine Alcohol Negative Ethyl Alcohol Misc Test Result Platelets confirmed Blood Type Antibody Screen Blood Bank Wristband ID ABG Interpretation ABG results: 02/18/25 19:30 VBG pH 7.43 VBG pCO2 39 VBG pO2 52 VBG Base Excess 2 Quality Measures Quality Measures none Assessment & Plan Assessment Current Active Medications: Generic Name Dose Route Start Last Admin Trade Name Freq PRN Reason Stop Dose Admin Acetaminophen 650 mg 02/18/25 21:35 Acetaminophen 325 Mg Tablet PO 03/20/25 21:34 Q6H PRN PAIN OR FEVER > 100.3F Chlordiazepoxide HCl 25 mg 02/18/25 22:00 02/19/25 05:22 Chlordiazepoxide Hcl 25 Mg Capsule PO 02/23/25 21:59 25 mg Q8HR NA Administration Folic Acid 1 mg 02/18/25 21:45 02/19/25 10:08 Folic Acid 1 Mg Tablet PO 02/23/25 21:44 1 mg BID NA Administration Lactated Ringer's 1,000 mls @ 75 mls/hr 02/18/25 20:23 02/19/25 10:10 Lactated Ringers IV 03/20/25 20:22 75 mls/hr .[id number] NA Administration Lactulose 20 gm 02/18/25 21:47 Lactulose Syrup 20 Gm/30 Ml Udc PO 03/20/25 21:59 TID PRN constipation Protocol Lorazepam 1 mg 02/18/25 21:36 Lorazepam 0.5 Mg Tablet PO 02/23/25 21:35 Q4HR PRN CIWA SCORE 6-10 Lorazepam 2 mg 02/18/25 21:36 Lorazepam 2 Mg/Ml Vial IV 02/23/25 21:35 Q2HR PRN CIWA SCORE 20-25 Lorazepam 1 mg 02/18/25 21:36 Lorazepam 2 Mg/Ml Vial IV 02/23/25 21:35 Q2HR PRN CIWA SCORE 15-19 Lorazepam 0.5 mg 02/18/25 21:36 Lorazepam 2 Mg/Ml Vial IVP 02/23/25 21:44 Q2HR PRN CIWA 11-14 Ondansetron HCl 4 mg 02/18/25 21:35 Ondansetron Inj 2 Mg/Ml Inj 2 Ml IV 03/20/25 21:34 Q6H PRN NAUSEA OR VOMITING Protocol Pantoprazole Sodium 40 mg 02/19/25 09:00 02/19/25 10:09 Pantoprazole Inj 40 Mg Vial IVP 03/21/25 08:59 40 mg QDAY NA Administration Thiamine HCl 100 mg 02/18/25 21:45 02/19/25 10:08 Thiamine 100 Mg Tablet PO 02/23/25 21:44 100 mg BID NA Administration Plan 34-year-old male, past medical history of seizure disorder, alcohol abuse disorder, alcohol withdrawal seizures, GI bleed who was brought to the emergency room after multiple episodes of witnessed seizures. #Seizure disorder DDx: Alcohol withdrawal seizures versus epilepsy History of recent admissions for similar complaints of seizures, but has had seizure at random times when he is still drinking. Currently being managed as alcohol withdrawal seizures, patient had prior EEGs during previous hospitalizations, but those are degraded by artifact likely due to withdrawal symptoms. Patient may require neurology consult to formally evaluate for epilepsy. Already received banana bag in the ER. CT head negative ? EEG taken pending read ? Neurology consulted, appreciate recommendations ? Scheduled Librium 25 mg every 8 hours ? Triggered CIWA protocol with Ativan ? P.o. thiamine and folic acid ? Seizure precautions in place ? Aspiration precautions in place #History of GI bleed/esophageal varices #Hepatomegaly #Alcoholic liver disease Patient's prior medical presentations were related to GI bleed, esophageal varices and mucosal oozing of blood throughout stomach on EGD on previous hospitalization. In addition to thrombocytopenia, history of excessive alcohol use, Maddrey's discriminant function score 2.3 which is good prognosis, no indication for IV steroids, ammonia less than 10, previous ultrasound of liver showed hepatomegaly, normal portal venous flow. ? Protonix 40 mg IV daily ? Will recommend patient to follow outpatient with technology solutions architect to rule out cirrhosis. ? Recommended patient abstain from alcohol #Thrombocytopenia Likely related to alcoholic liver disease, continue to monitor daily CBC. #Vomiting Reported 1 episode of vomiting, n containing food contents after seizures. ? Added Zofran as needed ? Aspiration precautions in place. Case discussed with my attending Dr. Carloz Shea MD PGY-1 Disposition: tele DVT prophylaxis: none, pt is mobile GI prophylaxis: protonix Diet: regular Lines: PIV CODE STATUS: Full
--- NOTE | 2025-02-19 14:33 | ESCONSULT_ITS ---
HPI Data of Consult Requesting Physician: Polo Sexton MD Admitting Provider: Polo Sexton MD Attending Provider: Polo Sexton MD Primary Care Provider: Nicole Patiño PA-C Consult Narrative Reason for consult: seizures History of present illness: The patient is a 34-year-old male with a previous medical history of alcohol abuse, withdrawal seizures and GI bleed who was admitted to the hospital on after having a seizure. He reports that he had few beers that day. He himself does not remember the seizures, denies auras, usually wakes up in the ambulance afterwards. Mother at the bedside, reports that he had a series of seizures that lasted approximately 15 seconds, he usually has impaired awareness, grabs objects, speaks nonsensically, has vocalizations. He has history of alcohol use since 16, according to the mother his alcohol use has worsened in the last 5 years, seizures started approximately 2 or 3 years ago. She denies him having seizures previously in the childhood. Patient reports that he stopped driving in December. Previously, he was working in the [employer]. He reports taking Librium for withdrawals, usually takes 1 tablet few times a week when he feels shaky and is using it for approximately 1 year. His mother also reports that his memory has become worse. According to the chart review, patient has a history of hallucitations for which he is taking trazodone and risperidone. In the hospital he was started on the CIWa protocol with librium and lorazepam. Head CT was negative for acute intracranial pathology. EEG recording was obscured with excessive noncephalic artefacts. 02/19/25: Patient denies headache, shakiness, feeling sweaty. No seizures overnight. Receives librium scheduled and has lorazepam as needed. Social history: lives with his family, denies smoking, recreational drugs, has an alcohol abuse history. Family history: mother reports family history of epilepsy in his grandfather Surgical history: denies Medication history: reports taking trazodone, librium Allergies: denies cc:: cc: Polo Sexton MD Review of Systems Review of Systems Systems Reviewed: All systems reviewed, normal except as documented Past Medical History Past Medical History NEUROLOGIC: Positive Seizures; Negative Neurological Disorders, Cerebrovascular Accident, Transient Ischemic Attacks (TIA), Dementia, Alzheimer's Disease, Parkinson's Disease, Brain Tumor, Meningitis, Epilepsy, Multiple Sclerosis, Cerebral Palsy, Amyotrophic Lateral Sclerosis (ALS/Lizbeth Gehrig's), Guillain-[place] Syndrome, Spina Bifida, Paralysis, Peripheral Neuropathy, Jara's Palsy, Subdural Hematoma, Migraine, Head Trauma, Spinal Cord Injury or Traumatic Brain Injury CARDIAC: Positive Cardiac Disorders and Hypertension; Negative Myocardial Infarction, Cardiac Arrhythmia, Atrial Fibrillation, Angina, Heart Murmur, Coronary Artery Disease, Atherosclerotic Heart Disease, Peripheral Vascular Disease, Hypercholesterolemia, Aneurysm, Congestive Heart Failure, Congenital Heart Disease, Valvular Heart Disease, Rheumatic Fever, Cardiomyopathy, Edema, Pericarditis, Cellulitis, Deep Vein Thrombosis, Hypotension or Varicose Veins RESPIRATORY: Negative Chronic Obstructive Pulmonary Disease (COPD), Asthma, Bronchitis, Emphysema, Pneumonia, Pulmonary Fibrosis, Cystic Fibrosis, Tuberculosis, Pulmonary Embolism, Pulmonary Edema or Sleep Apnea GASTROINTESTINAL: Positive Cirrhosis (ALCOHOL DEPENDENT); Negative Gastrointestinal Disorders, Hepatitis, Pancreatitis, Celiac Disease, Gall Bladder Disease, Gastrointestinal Bleed, Esophageal Varices, Soto's Esophagus, Colitis, Ulcerative Colitis, Diverticulitis, Diverticulosis, Ulcer, Colorectal Cancer, Irritable Bowel, Crohn's Disease, Obstructive Bowel, Hiatal Hernia, Hemorrhoids, Gastroesophageal Reflux Disease or Obesity GENITOURINARY: Negative Genitourinary Disorders, Renal Disease, Kidney Stones, Polycystic Kidney Disease, Neurogenic Bladder, Inguinal Hernia, Dialysis, Prostate Cancer or Benign Prostatic Hyperplasia REPRODUCTIVE: Negative Testicular Cancer MUSCULOSKELETAL: Negative Musculoskeletal Disorders, Myasthenia Gravis, Marfan's Syndrome, Bone Cancer, Arthritis, Rheumatoid Arthritis, Osteoporosis, Degenerative Disk Disease, Gout, Scoliosis, Carpal Tunnel Syndrome, Fibromyalgia, Fractures, Degenerative Joint Disease, Osteomyelitis or Poliovirus ENT: Negative Cataracts, Glaucoma, Blind, Retinal Detachment, Macular Degeneration, Ear Infection, Deafness, Head Trauma or Eye Prosthesis ENDOCRINE: Negative Endocrine Disorders, Diabetes Mellitus Type 1, Diabetes Mellitus Type 2, Hypoglycemia, Salty's Syndrome, Mccreary's Disease, Hyperthyroidism, Hypothyroidism, Parathyroid Disease, Pituitary Disease, Systemic Lupus Erythematosus, Syndrome of Inappropriate Antidiuretic Hormone (SIADH), Adrenal Disease or Graves' Disease HEMATOLOGIC: Negative Blood Disorders, Anemia, Leukemia, Hemophilia, Thalassemia, Sickle Cell Disease or Clotting Problems PSYCHO/SOCIAL: Positive Psychiatric Problems; Negative Schizophrenia, Recreational Drug Use, Bipolar Disorder, Depression, Anxiety, Behavior Problems, Self-Mutilation, Attention Deficit Disorder, Attention Deficit Hyperactivity Disorder, Post Traumatic Stress Disorder or Eating Disorder OTHER HISTORY: Negative Hospitalization, Autoimmune Disease, Down Syndrome, Autism, Developmental Delay, Shingles, Falls, Blood Transfusions, Blood Transfusion Reaction, Anesthesia Reactions, Organ Transplant, Chemotherapy, Radiation Therapy, Hyperbaric Therapy, MRSA, VRSA, Vancomycin-Resistant Enterococci, Human Immunodeficiency Virus (HIV), Chicken Pox, Measles, Mumps, Rubella (Al[place]ian Measles), Pertussis, Clostridium Difficile, Cancer, Colorectal Cancer, Lung Cancer, Prostate Cancer or Testicular Cancer Family History FAMILY HISTORY: Negative Family Psychiatric Problems, Family Respiratory Disorders, Family Cardiac Disorders, Family Gastrointestinal Problems, Family Cancer, Family Surgery or Family Anesthesia Reaction Surgical History SURGICAL: Negative Cardiac Surgery, Open Heart Surgery, Coronary Artery Bypass Graft, Valve Replacement, Vascular Surgery, Coronary Stent, Cardiac Catheterization, Pacemaker, Angiogram, Auto Implanted Cardiovert Defib, Carotid Endarterectomy, Endocrine Surgery, Thyroidectomy, Ear Surgery, Tympanostomy Tube, Eye Surgery, Nose Surgery, Oral Surgery, Tonsillectomy, Adenoidectomy, Cochlear Implant, Corneal Transplant, Throat Surgery, Abdominal Surgery, Tracheostomy, Gastric Bypass Surgery, Gastrostomy, Bowel Surgery, Nephrectomy, Transurethral Resection, Joint Replacement, Amputation, Open Reduction Internal Fixation, Arthroscopy, Neurologic Surgery, Brain Shunt, Vasectomy or Organ Transplant Social History SMOKING STATUS: Never smoker SECOND HAND EXPOSURE: No Exam Vital Signs Temp Pulse Resp BP Pulse Ox O2 Del Method 96.9 F 73 18 127/94 H 97 Room Air 02/19/25 12:00 02/19/25 12:00 02/19/25 12:00 02/19/25 12:00 02/19/25 12:00 02/19/25 12:00 Narrative Exam Gen: Well-developed and well-nourished. HEENT: NCAT, PERRLA, EOMI, MMM, anicteric conjunctivae. CVS: normal S1 and S2. RRR. No M/R/G. Resp: CTA B/L. No rhonchi, rales, crackles or wheezing. Abd: soft, non-tender, non-distended. BS+ in all 4 quadrants. MSK: Good ROM in BUE & BLE. No edema or rash. Neuro: CN II-XII grossly intact. Strength 5/5 in BUE & BLE. Alert and oriented x3. Psych: appropriate mood and affect. Results Labs 02/20/25 05:28 02/20/25 05:28 Labs: Short CBC 02/18/25 02/19/25 Range/Units 19:30 05:09 WBC 3.6 L 3.3 L (3.8-10.6) Thou/mm3 Hgb 10.7 L 10.4 L (13.5-16.0) g/dL Hct 30.9 L 31.1 L (41.0-53.0) % Plt Count 51 L 46 L (140-440) Thou/mm3 BMP 02/18/25 02/19/25 19:30 05:09 Sodium 132 L 138 Potassium 3.4 3.8 Chloride 96 L 98 Carbon Dioxide 23.9 28.9 BUN 10 7 L Creatinine 0.6 0.6 Glucose 133 H 91 Calcium 9.3 8.3 Cardiac Enzymes 02/18/25 Range/Units 19:30 Total Creatine Kinase 174 H (34-171) U/L Liver Function 02/18/25 02/19/25 Range/Units 19:30 05:09 Total Bilirubin 1.4 H 1.4 H (0.3-1.2) mg/dL Direct Bilirubin 0.6 H (0.0-0.3) mg/dL AST 87 H 74 H (0-34) U/L ALT 40 31 (10-49) U/L Alkaline Phosphatase 103 93 (46-116) U/L Albumin 4.2 3.8 (3.5-5.0) gm/dL Urine 02/18/25 Range/Units 23:14 Urine Color Yellow (Lt Yel-Yel) Urine Clarity Clear (Clear/Hazy) Urine pH 8.0 H (5.0-7.0) Ur Specific [place] 1.025 (1.001-1.035) Urine Protein 2+ A (Neg - Trace) Urine Glucose (UA) Negative (Negative) ABG Interpretation ABG results: 02/18/25 19:30 VBG pH 7.43 VBG pCO2 39 VBG pO2 52 VBG Base Excess 2 Quality Measures Quality Measures VTE prophylaxis Medications Home Medications and Allergies Home Medications ?Medication ?Instructions ?Recorded ?Confirmed ?Type cetirizine 10 mg tablet 10 mg PO QDAY 01/31/2402/19 History risperidone 2 mg tablet 2 mg PO QPM 01/31/24 5 History trazodone 100 mg tablet 100 mg PO QDAY 01/31/2403/11 History chlordiazepoxide HCl 25 mg capsule 25 mg PO Q8H PRN al cohol withdrawal 02/19/25 02/19/25 History Allergies Allergy/AdvReac Type Severity Reaction Status Date / Time No Known Allergies Allergy Verified 02/18/25 18:52 Visit Medications Acetaminophen (Acetaminophen 325 Mg Tablet) 650 mg PO Q6H PRN PRN Reason: PAIN OR FEVER > 100.3F Stop: 03/20/25 21:34 Chlordiazepoxide HCl (Chlordiazepoxide Hcl 25 Mg Capsule) 25 mg PO Q8HR [facility] Stop: 02/23/25 21:59 Last Admin: 02/19/25 14:15 Dose: 25 mg Folic Acid (Folic Acid 1 Mg Tablet) 1 mg PO BID [facility] Stop: 02/23/25 21:44 Last Admin: 02/19/25 10:08 Dose: 1 mg Lactated Ringer's (Lactated Ringers) 1,000 mls @ 75 mls/hr IV .[id number] [facility] Stop: 03/20/25 20:22 Last Admin: 02/19/25 10:10 Dose: 75 mls/hr Lactulose (Lactulose Syrup 20 Gm/30 Ml Udc) 20 gm PO TID PRN; Protocol PRN Reason: constipation Stop: 03/20/25 21:59 Lorazepam (Lorazepam 0.5 Mg Tablet) 1 mg PO Q4HR PRN PRN Reason: CIWA SCORE 6-10 Stop: 02/23/25 21:35 Lorazepam (Lorazepam 2 Mg/Ml Vial) 2 mg IV Q2HR PRN PRN Reason: CIWA SCORE 20-25 Stop: 02/23/25 21:35 Lorazepam (Lorazepam 2 Mg/Ml Vial) 1 mg IV Q2HR PRN PRN Reason: CIWA SCORE 15-19 Stop: 02/23/25 21:35 Lorazepam (Lorazepam 2 Mg/Ml Vial) 0.5 mg IVP Q2HR PRN PRN Reason: CIWA 11-14 Stop: 02/23/25 21:44 Ondansetron HCl (Ondansetron Inj 2 Mg/Ml Inj 2 Ml) 4 mg IV Q6H PRN; Protocol PRN Reason: NAUSEA OR VOMITING Stop: 03/20/25 21:34 Pantoprazole Sodium (Pantoprazole Inj 40 Mg Vial) 40 mg IVP QDAY NA Stop: 03/21/25 08:59 Last Admin: 02/19/25 10:09 Dose: 40 mg Thiamine HCl (Thiamine 100 Mg Tablet) 100 mg PO BID NA Stop: 02/23/25 21:44 Last Admin: 02/19/25 10:08 Dose: 100 mg Discontinued Medications Phenobarbital Sodium 130 mg/ (Sodium Chloride 12 ml) 0 mg IVP X1 ONE Stop: 02/18/25 19:23 Last Admin: 02/18/25 19:39 Dose: 130 mg Folic Acid (Folic Acid Inj 1 Mg/0.2 Ml) 1 mg IVP X1 ONE Stop: 02/18/25 19:24 Last Admin: 02/18/25 19:40 Dose: 1 mg Lactated Ringer's (Lactated Ringers) 1,000 mls @ 999 mls/hr IV .Q1H1M ONE Stop: 02/18/25 20:22 Last Infusion: 02/18/25 21:48 Dose: Infused Magnesium Sulfate (Magnesium Sulfate Ivpb) 2 gm in 50 mls @ 25 mls/hr IV X1 ONE Stop: 02/18/25 21:22 Last Infusion: 02/18/25 21:48 Dose: Infused Magnesium Sulfate (Magnesium Sulfate Ivpb) 2 gm in 50 mls @ 25 mls/hr IV X1 ONE Stop: 02/18/25 23:59 Last Infusion: 02/19/25 00:44 Dose: Infused Lorazepam (Lorazepam 2 Mg/Ml Vial) 2 mg IVP Q6H PRN PRN Reason: Breakthrough seizures Stop: 02/23/25 20:14 Ondansetron HCl (Ondansetron Inj 2 Mg/Ml Inj 2 Ml) 4 mg IV X1 ONE; Protocol Stop: 02/18/25 19:23 Last Admin: 02/18/25 19:39 Dose: 4 mg Pantoprazole Sodium (Pantoprazole Inj 40 Mg Vial) 40 mg IV X1 ONE Stop: 02/18/25 19:32 Last Admin: 02/18/25 19:40 Dose: 40 mg Potassium Chloride (Potassium Chloride 10% 20 Meq/15 Ml Udc) 40 meq GT X1 ONE Stop: 02/18/25 20:22 Last Admin: 02/18/25 20:48 Dose: 40 meq Sennosides (Senna Tablet) 2 tab PO BID PRN; Protocol PRN Reason: CONSTIPATION Stop: 03/20/25 21:34 Thiamine HCl (Thiamine Inj 100 Mg/Ml Vial 2 Ml) 100 mg IVP X1 ONE Stop: 02/18/25 19:24 Last Admin: 02/18/25 19:40 Dose: 100 mg Assessment & Plan Plan The patient is a 34-year-old male, past medical history of seizure disorder, alcohol abuse disorder, alcohol withdrawal seizures, GI bleed who was brought to the emergency room after multiple episodes of witnessed seizures. #Seizure disorder #Withdrawal seizures Patient was admitted after having a series of seizures each of them lasting approximately 15 seconds. He does not have awareness of them, does not have auras. Patient has a history of seizures associated with alcohol withdrawals. According to the mother, patient started to have seizures irregarding of alcohol use. CT head negative for acute intracranial pathology. Ammonia level at the admission was <10. Plan: ? EEG ordered again ? Librium 25 mg every 8 hours ? Lorazepam as needed according to [facility] protocol ? P.o. thiamine and folic acid ? Seizure precautions ? Aspiration precautions - consulted on alcohol cessation, patient vocalized understanding and interest #History of GI bleed/esophageal varices #Hepatomegaly #Alcoholic liver disease #Thrombocytopenia #Vomiting - management per primary team Plan of care discussed with attending Dr. Davalos. Stephanie So MD, PGY 1. Attending Provider Attestation/Addendum Patient was seen and examined at the bedside and I agree with the residents findings, assessment and plan of care. Patient did not have any seizures after admission. EEG showed normal study without any epileptiform discharges. He does not have to be on any antiepileptic drugs. Advised him about the importance of alcohol cessation and stay quit. He agreed to attend inpatient alcohol rehab center locally.
--- NOTE | 2025-02-19 20:20 | RESP.EEG ---
Second EEG has been completed and is ready for MD interpretation. NOTE: all impedance probes were within acceptable range.
[2025-02-20] VITALS: BP 126/99; PULSE 84; PULSE 95; RESP 19; TEMP 36.6; O2SAT 98
[2025-02-20] MEDS: RINGERS LACTATED 1000 ML 1,000 ML 75 ML IV (03:40)
[2025-02-20 04:00] VITALS: BP 129/90; PULSE 65; PULSE 70; RESP 14; TEMP 36.1; O2SAT 97
[2025-02-20] MEDS: chlordiazePOXIDE HCl 25 MG CAPSULE PO (05:39)
[2025-02-20 06:00] VITALS: BMI 24.7
[2025-02-20 06:17] LABS: Basophils % (Auto) 0 % (0-2.5); Eosinophils % (Auto) 2 % (0-10); Hematocrit 32.3 % (41.0-53.0); Hemoglobin 10.7 g/dL (13.5-16.0); Immature Granulocytes % (Auto) 0 % (0-0); Immature Granulocytes Auto 0.01 Thou/mm3 (0.00-0.00); Lymphocytes # (Auto) 0.7 Thou/mm3 (1.0-4.8); Lymphocytes % (Auto) 24 % (10-50); Mean Corpuscular HGB Conc 33.1 g/dl (31.0-37.0); Mean Corpuscular Hemoglobin 29.9 pg (25.0-35.0); Mean Corpuscular Volume 90 fL (80-100); Monocytes # (Auto) 0.2 Thou/mm3 (0.0-0.8); Monocytes % (Auto) 7 % (0-12); Neutrophils # (Auto) 1.8 Thou/mm3 (1.8-7.7); Neutrophils % (Auto) 66 % (37-80); Nucleated Red Blood Cell % 0 /100 WBC (0); RDW Standard Deviation 44.9 fL (35.1-43.9); Red Blood Count 3.58 Miln/mm3 (4.50-5.90)
[2025-02-20 06:23] LABS: Platelet Count 49 Thou/mm3 (140-440); White Blood Count 2.7 Thou/mm3 (3.8-10.6)
[2025-02-20 06:41] LABS: Alanine Aminotransferase 29 U/L (10-49); Albumin, Serum 3.8 gm/dL (3.5-5.0); Alkaline Phosphatase 98 U/L (46-116); Anion Gap 10 (7-16); Aspartate Amino Transferase 72 U/L (0-34); BUN/Creatinine Ratio 8 Ratio (12-20); Bilirubin,Direct 0.6 mg/dL (0.0-0.3); Bilirubin,Total 1.4 mg/dL (0.3-1.2); Blood Urea Nitrogen < 5 mg/dL (9-23); Calcium 8.4 mg/dL (8.3-10.6); Carbon Dioxide 27.1 mMol/L (20.0-31.0); Chloride 100 mMol/L (98-107); Creatinine (Component) 0.6 mg/dL (0.6-1.3); Glucose 93 mg/dL (74-106); Magnesium 1.5 mg/dL (1.6-2.6); Osmolality,Calculated 271 (275-295); Phosphorous 2.7 mg/dL (2.4-5.1); Potassium 3.6 mMol/L (3.4-5.1); Sodium 137 mMol/L (136-145); Total Protein 7.2 gm/dL (5.7-8.2); eGFR > 60 See Note
[2025-02-20 08:00] VITALS: BP 131/95; PULSE 72; PULSE 82; RESP 16; TEMP 36.1; O2SAT 97
[2025-02-20] MEDS: THIAMINE 100 MG TABLET PO (08:03)
[2025-02-20] MEDS: Magnesium Sulfate 4 GM Ivpb 4 GM/50 ML BAG IV (08:03)
[2025-02-20] MEDS: PANTOPRAZOLE INJ 40 MG VIAL IVP (08:03)
[2025-02-20] MEDS: FOLIC ACID 1 MG TABLET PO (08:03)
[2025-02-20 09:00] VITALS: PULSE 82; RESP 16; RESP 97
[2025-02-20 09:12] LABS: Slide Review Platelets confirmed
[2025-02-20] MEDS: LORazepam 0.5 MG TABLET 1 MG PO (09:32)
--- NOTE | 2025-02-20 11:00 | PC.NURSE ---
pt.wanting to leave AMA,called pt.mom,said she will call pt.brother to come,he came and talked and encourage pt.to stay,pt.still refusing to stay.pt.left with brother.
--- NOTE | 2025-02-20 11:49 | EVENTNT_ITS ---
Documentation for date of: 02/20/25 Event Note Event Note: Patient was seen today at the bedside found awake, alert, orientedx3. Patient wants to leave the hospital despite explaining his clinical status, he however expressed understanding and the patient has decided to sign out against medical advice (AMA) after being explained the risks & benefits of leaving before medical clearance/discharge. The patient had the opportunity to ask questions about their condition which were answered to their satisfaction; the patient is aware that they may return for further care at any time as needed. Case discussed with my senior Dr. Jensen and my attending Dr. Carloz Shea MD PGY-1 Patient examined and case discussed with the team including attending physician. Note reviewed, I agree with the care plan as documented. Mr. Shah is a 34-year-old male who was admitted for hyperbilirubinemia, electrolyte imbalance, leukopenia and symptomatic anemia in the setting of alcohol use disorder. He was being treated with CIWA protocol in hospital, and improving during the hospitalization. Patient decided to leave AGAINST MEDICAL ADVICE around 11 AM on 02/20/2025, despite having a CIWA score >3. He was counseled extensively on the risks of leaving without completing treatment. He showed full comprehension and was alert and oriented when he made the decision. No discharge medications were sent as the patient was not not officially discharged, and left AGAINST MEDICAL ADVICE. - Guanaco Jensen MD, PGY 2 Disclaimer: The document may contain phonetic/typographic errors due to voice recognition software. These errors are purely due to imperfections in the software program and should not be misconstrued in any way to compromise the substance of the patient's medical care during this visit.
== END 2025-02-20 11:15 | disposition left against medical advice (07) | DRG 53 ==
LOC: SERX 19:37 → SERHOLD 21:29 → S2NX 02-19 01:02
PROVIDERS: Student in an Organized Health Care Education/Training Program; Admitting Provider Internal Medicine; Emergency Provider Emergency Medicine; PCP Physician Assistant Medical; Visit Provider Internal Medicine
DX: G40.909 Epilepsy, unspecified, not intractable, without status epilepticus (principal); F10.139 Alcohol abuse with withdrawal, unspecified; K70.9 Alcoholic liver disease, unspecified; D69.59 Other secondary thrombocytopenia; E83.42 Hypomagnesemia; I10 Essential (primary) hypertension; Z56.0 Unemployment, unspecified; D64.9 Anemia, unspecified; D72.819 Decreased white blood cell count, unspecified; Z79.899 Other long term (current) drug therapy; Z53.29 Procedure and treatment not carried out because of patient's decision for other reasons
CPT/HCPCS: 36415; 70450; 71045; 80048; 80053; 80061; 80076; 80307; 80320; 81001; 82010; 82140; 82550; 82803; 83605; 83735; 84100; 84443; 85025; 85610; 85730; 86850; 86900; 86901; 93005; 95816; 96365; 96366; 96367; 96375; 99285; A4216; J2405; J2470; J2560; J3411; J3475; J3490; J7120; A9270; G0480